=== PATIENT | female | born 1970 | race Caucasian/White ===

== ENCOUNTER 2023-10-23 11:23 | Observation (INO) | payer BC, OTHER, SELFPAY ==
--- OUTSIDE RECORDS SUMMARY | 2023-10-23 11:28 | XMS REPORT | Continuity of Care Document ---
Author Name Unknown Address [address] [facility] [address] [place] [address] [facility] Address [address] [facility] [address] [place] [address] Care Team Providers Care Egg Tester Name Role Phone Nicole Carter MD Primary Care Physician [phone] Nicole Carter Attending Clinician Unavailable KAUSHIK CHE Attending Clinician Unavailable ANTHONY BRAVO Attending Clinician UnavailNicole Ellis MD Attending Clinician + [phone] Anthony Bravo MD Attending Clinician [phone] Emanuel Gibson Attending Clinician Unavailable NICOLE CARTER Attending Clinician Ronit Bermudez , May Attending Clinician Unavailab GALINDO Richard Attending Clinician Unavail able GALINDO GAMEZ Attending Clinician Unavail Galindo Contreras MD Attending Clinician [phone] Edgardo Barr Attending Clinician [phone] Unknown, Attending Attending Clinician Unavailab EDGARDO Barrow Attending Clinician Unavailable ZENY DUMONT Attending Clinician Unavailable Zeny Dumont MD Attending Clinician [phone] WENDY SCHREIBER Attending Clinician Unavailable Wendy Schreiber MD Attending Clinician [phone] Ronn BARNES Lili Attending Clinician [phone] Doctor Unassigned, [place] Attending Clinician Rosa Rivas LVN Attending Clinician Ronit uribe Team, [facility] Maintenance Attending Clinicia n Unavailable Lab, [facility] Attending Clinician Unavailab le Provider, [facility] Attending Clinician Un available Isaac Talbot Attending Clinician [phone] ISAAC BANG Attending Clinician Unavailable CHRISTIAN SHEIKH Attending Clinician Unavail able Christian Sheikh DO Attending Clinician 2, [facility] Attending Clinician Unavailable DOC ANGELES M.D., Sophie BLOUNT Attendi ng Clinician Unavailable Nicole Carter Admitting Clinician Unavailable WENDY SCHREIBER Admitting Clinician Unavailable GALINDO GAMEZ Admitting Clinician Unavail able DOC ANGELES M.D., DOC Admitting Clin ician Unavailable Payers Payer Name Policy Type Policy Number Effective Date Expirati on Date Source [employer] OPEN ACCESS/OPEN ACCESS PLUS [id number] 2006 00:00:00 Problems Condition Name Condition Details Condition Category Status Onset Date Resolution Date Last Treatment Date Treating Clinician Comments Source Chronic head pain Chronic head pain Disease Active 10-24 00:00: 00 [facility] Anosmia Anosmia Disease Active 2020-02 00:00: 00 [facility] Chronic pansinusit is Chronic pansinusit is Disease Active 2020-02 00:00: 00 [facility] Nasal septal perforatio n Nasal septal perforatio n Disease Active 2020-02 00:00: 00 [facility] Type 2 diabetes mellitus without complicati on Type 2 diabetes mellitus without complicati on Disease Active 2014-02 00:00: 00 [facility] Essential hypertensi on Essential hypertensi on Disease Active 2014-02 00:00: 00 [facility] Obesity Obesity Disease Active 2014-02 00:00: 00 [facility] Depression Depression Disease Active 2014-02 00:00: 00 [facility] No known active problems No known active problems Disease [facility] Allergies, Adverse Reactions, Alerts Allergy Name Allergy Type Status Severity Reaction(s) Onset Date Inactive Date Treating Clinician Comments Source MAGO Kiran LIP BALM DRUG Active Rash 2020-02 00:00: 00 [facility] Chapstic miky Lip [place] Propensi ty to adverse reaction s Active Rash 2020-02 00:00: 00 [facility] Social History Social Habit Start Date Stop Date Quantity Comments [facility] History SDOH Alcohol Frequency [facility] History SDOH Alcohol Std Drinks [facility] History SDOH Alcohol Binge [facility] Alcoholic beverage intake 2023-08-20 00:00:00 2023-08-20 00:00:00 .14 /d [facility] Alcohol intake 2023-06-18 00:00:00 2023-06-18 00:00:00 .14 /d [facility] Tobacco use and exposure 2023-03-30 00:00:00 2023-03-30 00:00:00 Smokeless tobacco non-user [facility] History of Social function 2023-03-30 00:00:00 2023-03-30 00:00:00 [facility] Exposure to SARS-CoV-2 (event) 2022-06-22 00:00:00 2022-07-02 09:02:00 Not sure [facility] Alcohol Comment 2015-01-23 00:00:00 2015-01-23 00:00:00 occ [facility] Sex assigned at 1970 00:00:00 1970 00:00:00 [facility] Smoking Status Start Date Stop Date Source Never smoked tobacco [facility] Medications Ordered Medication Name Filled Medication Name Start Date Stop Date Current Medication? Ordering Clinician Indication Dosage Frequency Signature (SIG) Comments Components Source amphetamine -dextroamph etamine (ADDERALL XR) 20 mg 24 hr capsule 8- 00:00: 00 Yes [id number] 20mg Take 1 capsule by mouth every morning. [facility] lidocaine 1% (PF) (XYLOCAINE) injection 10 mL 08-18 20:30: 00 08-18 19:28 :00 No [id number] 10mL 10 mL, Subcutaneo us, ONCE, 1 dose, On Thu08/19/23 at 1530, Routine [facility] sodium bicarbonate 1 mEq/mL (8.4 %) injection 4 mL 08-18 20:30: 00 08-18 19:30 :00 No [id number] 4mL 4 mL, Infiltrati on, ONCE, 1 dose, On Thu08/19/23 at 1530, Routine [facility] bupivacaine (preserv free) (SENSORCAIN E MPF) 0.25 % (2.5 mg/mL) injection 4 mL 08-18 20:15: 00 08-18 19:31 :00 No [id number] 4mL 4 mL, Infiltrati on, ONCE, 1 dose, On Thu08/19/23 at 1515, Routine [facility] dexamethaso ne (DECADRON) injection 10 mg 08-18 20:15: 00 08-18 19:31 :00 No [id number] 10mg 10 mg, Infiltrati on, ONCE, 1 dose, On Thu08/19/23 at 1515, Routine [facility] amphetamine -dextroamph etamine (ADDERALL XR) 20 mg 24 hr capsule 08-17 00:00: 00 10-13 00:00 :00 No [id number] 20mg Take 1 capsule by mouth every morning. [facility] gabapentin 300 mg capsule 5-20 00:00: 00 Yes [id number] 300mg Take 1 capsule by mouth in the morning and 1 capsule in the evening. [facility] amphetamine -dextroamph etamine (ADDERALL XR) 20 mg 24 hr capsule 5-13 00:00: 00 08-17 00:00 :00 No [id number] 20mg Take 1 capsule by mouth every morning. [facility] semaglutide (OZEMPIC) 1 mg/dose (4 mg/3 mL) PnIj 06-17 00:00: 00 Yes [id number] 1mg inject 1 mg under the skin weekly. [facility] citalopram 40 mg tablet 06-17 00:00: 00 Yes [id number] 60mg Take 1.5 tablets by mouth in the morning. [facility] zolpidem 10 mg tablet 06-17 00:00: 00 Yes [id number] 10mg Take 1 tablet by mouth at bedtime as needed for Insomnia. [facility] amphetamine -dextroamph etamine (ADDERALL XR) 20 mg 24 hr capsule 06-07 00:00: 00 07-05 00:00 :00 No [id number] 20mg Take 1 capsule by mouth every morning. [facility] hydroCHLORO thiazide 25 mg tablet 05-24 00:00: 00 Yes [id number] 25mg TAKE 1 TABLET BY MOUTH EVERY DAY IN THE MORNING [facility] amphetamine -dextroamph etamine (ADDERALL XR) 20 mg 24 hr capsule 3- 00:00: 00 06-07 00:00 :00 No [id number] 20mg Take 1 capsule by mouth every morning. [facility] iopamidol (ISOVUE 370-500 mL) injection 90 mL 16 19:00: 00 04-10 19:12 :00 No [id number] 90mL 90 mL, Intravenou s, ONCE, 1 dose, On Thu04/10/23 at 1315, Routine [facility] semaglutide (OZEMPIC) 1 mg/dose (4 mg/3 mL) PnIj 2-14 00:00: 00 06-17 00:00 :00 No [id number] 1mg inject 1 mg under the skin weekly. [facility] molnupiravi r 200 mg capsule 2-07 00:00: 00 06-10 00:00 :00 No [id number] 800mg Take 4 capsules by mouth every 12 (twelve) hours. [facility] lisdexamfet amine (VYVANSE) 30 mg capsule 1- 00:00: 00 04-29 00:00 :00 No [id number] 30mg Take 1 capsule by mouth every morning. [facility] zolpidem 10 mg tablet 2022-02 1-20 00:00: 00 06-17 00:00 :00 No [id number] 10mg Take 1 tablet by mouth at bedtime as needed for Insomnia. [facility] lisdexamfet amine (VYVANSE) 30 mg capsule 2022-02 1- 00:00: 00 02-23 00:00 :00 No [id number] 30mg Take 1 capsule by mouth every morning. [facility] lisdexamfet amine (VYVANSE) 20 mg capsule 2022-02 0-17 00:00: 00 01-05 00:00 :00 No [id number] 20mg Take 1 capsule by mouth every morning. [facility] lisdexamfet amine (VYVANSE) 20 mg capsule 2022-02 0-10 00:00: 00 12-09 00:00 :00 No [id number] 20mg Take 1 capsule by mouth every morning. [facility] hydroCHLORO thiazide 25 mg tablet 11-20 00:00: 00 05-24 00:00 :00 No [id number] 25mg TAKE 1 TABLET BY MOUTH EVERY DAY IN THE MORNING [facility] semaglutide (OZEMPIC) 0.25 mg or 0.5 mg (2 mg/3 mL) PnIj - 00:00: 00 04-08 00:00 :00 No [id number] INJECT 0.5 MG UNDER THE SKIN WEEKLY [facility] Nitrofurant oin&Nit. Macrocryst 100 mg capsule 8-18 00:00: 00 10-16 04:59 :00 No [id number] 100mg Take 1 capsule by mouth in the morning and 1 capsule in the evening. Do all this for 5 days. [facility] phenazopyri dine 100 mg tablet 8-18 00:00: 00 10-13 04:59 :00 No [id number] 200mg Take 2 tablets by mouth in the morning and 2 tablets at noon and 2 tablets in the evening. Do all this for 2 days. [facility] hydroCHLORO thiazide 25 mg tablet 6-26 00:00: 00 11-20 00:00 :00 No [id number] 25mg Take 1 tablet by mouth in the morning. [facility] metformin ER 500 mg 24 hr tablet 12 08:23: 09 06-04 00:00 :00 No 500mg Take 500 mg by mouth 2 (two) times daily. [facility] buPROPion SR (WELLBUTRIN SR) 150 mg SR tablet 12 00:00: 00 Yes [id number] 150mg Take 1 tablet by mouth in the morning and 1 tablet in the evening. [facility] citalopram 40 mg tablet 12 00:00: 00 06-17 00:00 :00 No [id number] 60mg Take 1.5 tablets by mouth in the morning. [facility] zolpidem 10 mg tablet 12 00:00: 00 01-09 00:00 :00 No [id number] 10mg Take 1 tablet by mouth at bedtime as needed for Insomnia. [facility] semaglutide (OZEMPIC) 0.25 mg or 0.5 mg(2 mg/1.5 mL) PnIj 412 00:00: 00 11-20 00:00 :00 No [id number] .5mg inject 0.5 mg under the skin weekly. [facility] ZOLPIDEM 10 mg tablet 3-20 00:00: 00 06-04 00:00 :00 No [id number] TAKE 1 TABLET BY MOUTH EVERY DAY AT BEDTIME NEEDED FOR INSOMNIA [facility] citalopram 40 mg tablet 2-08 00:00: 00 06-04 00:00 :00 No [id number] 60mg Take 1.5 tablets by mouth in the morning. [facility] RIVASTIGMIN E 4.6 mg/24 hour patch 2021-02 2-20 00:00: 00 06-04 00:00 :00 No [id number] APPLY 1 PATCH TO SKIN EVERY DAY (CALL DR OFFICE FOR FURTHER REFILLS) [facility] zolpidem 10 mg tablet 9-20 00:00: 00 05-12 00:00 :00 No [id number] 10mg Take 1 tablet by mouth at bedtime as needed for Insomnia. [facility] semaglutide (OZEMPIC) 0.25 mg or 0.5 mg(2 mg/1.5 mL) PnIj - 00:00: 00 06-04 00:00 :00 No [id number] .5mg inject 0.5 mg under the skin weekly. .25 mg weekly for 4 weeks then .5 mg weekly [facility] cefUROXime 250 mg tablet - 00:00: 00 09-26 00:00 :00 No [id number] 250mg Take 1 tablet by mouth 2 (two) times daily. [facility] RIVASTIGMIN E 4.6 mg/24 hour patch 5-19 00:00: 00 02-11 00:00 :00 No [id number] APPLY 1 PATCH TO SKIN EVERY DAY (CALL DR OFFICE FOR FURTHER REFILLS) [facility] Ferrous Sulfate 134 mg (27 mg iron) Tab 5-11 15:03: 48 07-03 00:00 :00 No Take by mouth 3 (three) times daily. [facility] buPROPion SR (WELLBUTRIN SR) 150 mg SR tablet 3-25 00:00: 00 06-04 00:00 :00 No [id number] 150mg Take 1 tablet by mouth 2 (two) times daily. [facility] hydroCHLORO thiazide 25 mg tablet 0 3-15 00:00: 00 08-18 00:00 :00 No [id number] 25mg Take 1 tablet by mouth daily. [facility] telmisartan 80 mg tablet 3-15 00:00: 00 06-04 00:00 :00 No [id number] 80mg Take 1 tablet by mouth daily. [facility] citalopram 40 mg tablet 3-15 00:00: 00 04-02 00:00 :00 No [id number] 60mg Take 1.5 tablets by mouth daily. [facility] zolpidem 10 mg tablet 3-15 00:00: 00 11-11 00:00 :00 No [id number] 10mg Take 1 tablet by mouth at bedtime as needed for Insomnia. [facility] fluticasone (Flonase) 50 MCG/ACT nasal spray 03-15 00:00: 00 03-16 05:59 :00 No [id number] 1{spray } Q.5D Administer 1 spray into each nostril 2 (two) times a day. Shake gently. Before first use, prime pump. After use, clean tip and replace cap. [facility] telmisartan (MIcarDIS) 80 MG tablet 03-08 10:24: 29 Yes [facility] Ferrous Sulfate 134 MG tablet 03-08 10:24: 29 Yes Take by mouth. [facility] FOLIC ACID PO 03-08 10:24: 29 Yes Take by mouth. [facility] predniSONE (Deltasone) 10 MG tablet 03-08 00:00: 00 Yes 75 Take 3 tablets by mouth daily for 3 days then Take 2 tablets by mouth daily for 3 days then Take 1 tablets by mouth daily for 4 days [facility] fluticasone (Flonase) 50 MCG/ACT nasal spray 03-08 00:00: 00 03-09 05:59 :00 No [id number] 1{spray } Q.5D Administer 1 spray into each nostril 2 (two) times a day. Shake gently. Before first use, prime pump. After use, clean tip and replace cap. [facility] diclofenac (Voltaren) 50 MG EC tablet 2020-02 00:00: 00 02-15 05:59 :00 No [id number] 50mg [id number] 3D Take 1 tablet (50 mg total) by mouth 3 (three) times a day if needed (pain). Do not crush, chew, or split. [facility] promethazin e (Phenergan) 12.5 MG tablet 2020-02 00:00: 00 02-22 05:59 :00 No [id number] 12.5mg Q6H Take 1 tablet (12.5 mg total) by mouth every 6 (six) hours if needed for nausea or vomiting for up to 7 days. [facility] amoxicillin -clavulanat e (Augmentin) 500-125 MG tablet 2020-02 00:00: 00 02-22 05:59 :00 No [id number] 500mg Q12H Take 1 tablet (500 mg total) by mouth every 12 (twelve) hours for 7 days. [facility] HYDROcodone -acetaminop hen (Samburg) 7.5-325 MG tablet 2020-02 00:00: 00 02-20 05:59 :00 No [id number] 1{tbl} Q6H Take 1 tablet by mouth every 6 (six) hours if needed for severe pain for up to 5 days. [facility] FOLIC ACID PO 2020-02 15:00: 45 Yes Take by mouth. [facility] telmisartan (MIcarDIS) 80 MG tablet 2020-02 15:00: 16 Yes [facility] Ferrous Sulfate 134 MG tablet 2020-02 15:00: 16 Yes Take by mouth. [facility] citalopram (CeleXA) 40 MG tablet 2020-02 00:00: 00 Yes [facility] zolpidem (Ambien) 10 MG tablet 9- 00:00: 00 Yes 1{tbl} QD Take 1 tablet by mouth at night if needed. [facility] buPROPion SR (WELLBUTRIN SR) 150 mg SR tablet 2019-02 0-13 00:00: 00 05-17 00:00 :00 No [id number] 150mg Take 1 tablet by mouth 2 (two) times daily. [facility] metformin ER 500 mg 24 hr tablet 2018-02 13:31: 54 Yes 500mg Take 500 mg by mouth 2 (two) times daily. [facility] glimepiride 2 mg tablet 2018-02 00:00: 00 09-26 00:00 :00 No [id number] 2mg Take 1 tablet by mouth daily. [facility] telmisartan 80 mg tablet 2018-02 00:00: 00 05-07 00:00 :00 No [id number] 80mg Take 1 tablet by mouth daily. [facility] hydroCHLORO thiazide 25 mg tablet 2018-02 00:00: 00 05-07 00:00 :00 No [id number] 25mg Take 1 tablet by mouth daily. [facility] Immunizations Ordered Immunization Name Filled Immunization Name Date Status Comments Source SARS-COV-2 COVID-19 PFIZER VACCINE 2020-06-05 00:00:00 Completed [facility] SARS-COV-2 COVID-19 PFIZER VACCINE 2020-06-05 00:00:00 Completed [facility] SARS-COV-2 COVID-19 PFIZER VACCINE 2020-06-05 00:00:00 Completed [facility] SARS-COV-2 COVID-19 PFIZER VACCINE 2020-06-05 00:00:00 Completed [facility] SARS-COV-2 COVID-19 PFIZER VACCINE 2020-06-05 00:00:00 Completed [facility] SARS-COV-2 COVID-19 PFIZER VACCINE 2020-06-05 00:00:00 Completed [facility] SARS-COV-2 COVID-19 PFIZER VACCINE 2020-06-05 00:00:00 Completed [facility] SARS-COV-2 COVID-19 PFIZER VACCINE 2020-06-05 00:00:00 Completed [facility] SARS-COV-2 COVID-19 PFIZER VACCINE 2020-06-05 00:00:00 Completed [facility] SARS-COV-2 COVID-19 PFIZER VACCINE 2020-06-05 00:00:00 Completed [facility] SARS-COV-2 COVID-19 PFIZER VACCINE 2020-06-05 00:00:00 Completed [facility] SARS-COV-2 COVID-19 PFIZER VACCINE 2020-06-05 00:00:00 Completed [facility] SARS-COV-2 COVID-19 PFIZER VACCINE 2020-06-05 00:00:00 Completed [facility] SARS-COV-2 COVID-19 PFIZER VACCINE 2020-06-05 00:00:00 Completed [facility] SARS-COV-2 COVID-19 PFIZER VACCINE 2020-06-05 00:00:00 Completed [facility] SARS-COV-2 COVID-19 PFIZER VACCINE 2020-06-05 00:00:00 Completed [facility] SARS-COV-2 COVID-19 PFIZER VACCINE 2020-06-05 00:00:00 Completed [facility] SARS-COV-2 COVID-19 PFIZER VACCINE 2020-05-15 00:00:00 Completed [facility] SARS-COV-2 COVID-19 PFIZER VACCINE 2020-05-15 00:00:00 Completed [facility] SARS-COV-2 COVID-19 PFIZER VACCINE 2020-05-15 00:00:00 Completed [facility] SARS-COV-2 COVID-19 PFIZER VACCINE 2020-05-15 00:00:00 Completed [facility] SARS-COV-2 COVID-19 PFIZER VACCINE 2020-05-15 00:00:00 Completed [facility] SARS-COV-2 COVID-19 PFIZER VACCINE 2020-05-15 00:00:00 Completed [facility] SARS-COV-2 COVID-19 PFIZER VACCINE 2020-05-15 00:00:00 Completed [facility] SARS-COV-2 COVID-19 PFIZER VACCINE 2020-05-15 00:00:00 Completed [facility] SARS-COV-2 COVID-19 PFIZER VACCINE 2020-05-15 00:00:00 Completed [facility] SARS-COV-2 COVID-19 PFIZER VACCINE 2020-05-15 00:00:00 Completed [facility] SARS-COV-2 COVID-19 PFIZER VACCINE 2020-05-15 00:00:00 Completed [facility] SARS-COV-2 COVID-19 PFIZER VACCINE 2020-05-15 00:00:00 Completed [facility] SARS-COV-2 COVID-19 PFIZER VACCINE 2020-05-15 00:00:00 Completed [facility] SARS-COV-2 COVID-19 PFIZER VACCINE 2020-05-15 00:00:00 Completed [facility] SARS-COV-2 COVID-19 PFIZER VACCINE 2020-05-15 00:00:00 Completed [facility] SARS-COV-2 COVID-19 PFIZER VACCINE 2020-05-15 00:00:00 Completed [facility] SARS-COV-2 COVID-19 PFIZER VACCINE 2020-05-15 00:00:00 Completed [facility] SARS-COV-2 COVID-19 PFIZER VACCINE Unknown Completed [facility] SARS-COV-2 COVID-19 PFIZER VACCINE Unknown Completed [facility] SARS-COV-2 COVID-19 PFIZER VACCINE Unknown Completed [facility] SARS-COV-2 COVID-19 PFIZER VACCINE Unknown Completed [facility] SARS-COV-2 COVID-19 PFIZER VACCINE Unknown Completed [facility] SARS-COV-2 COVID-19 PFIZER VACCINE Unknown Completed [facility] SARS-COV-2 COVID-19 PFIZER VACCINE Unknown Completed [facility] SARS-COV-2 COVID-19 PFIZER VACCINE Unknown Completed [facility] SARS-COV-2 COVID-19 PFIZER VACCINE Unknown Completed [facility] SARS-COV-2 COVID-19 PFIZER VACCINE Unknown Completed [facility] SARS-COV-2 COVID-19 PFIZER VACCINE Unknown Completed [facility] SARS-COV-2 COVID-19 PFIZER VACCINE Unknown Completed [facility] SARS-COV-2 COVID-19 PFIZER VACCINE Unknown Completed [facility] SARS-COV-2 COVID-19 PFIZER VACCINE Unknown Completed [facility] SARS-COV-2 COVID-19 PFIZER VACCINE Unknown Completed [facility] SARS-COV-2 COVID-19 PFIZER VACCINE Unknown Completed [facility] SARS-COV-2 COVID-19 PFIZER VACCINE Unknown Completed [facility] SARS-COV-2 COVID-19 PFIZER VACCINE Unknown Completed [facility] SARS-COV-2 COVID-19 PFIZER VACCINE Unknown Completed [facility] SARS-COV-2 COVID-19 PFIZER VACCINE Unknown Completed [facility] SARS-COV-2 COVID-19 PFIZER VACCINE Unknown Completed [facility] SARS-COV-2 COVID-19 PFIZER VACCINE Unknown Completed [facility] SARS-COV-2 COVID-19 PFIZER VACCINE Unknown Completed [facility] SARS-COV-2 COVID-19 PFIZER VACCINE Unknown Completed [facility] SARS-COV-2 COVID-19 PFIZER VACCINE Unknown Completed [facility] SARS-COV-2 COVID-19 PFIZER VACCINE Unknown Completed [facility] SARS-COV-2 COVID-19 PFIZER VACCINE Unknown Completed [facility] SARS-COV-2 COVID-19 PFIZER VACCINE Unknown Completed [facility] SARS-COV-2 COVID-19 PFIZER VACCINE Unknown Completed [facility] SARS-COV-2 COVID-19 PFIZER VACCINE Unknown Completed [facility] SARS-COV-2 COVID-19 PFIZER VACCINE Unknown Completed [facility] SARS-COV-2 COVID-19 PFIZER VACCINE Unknown Completed [facility] SARS-COV-2 COVID-19 PFIZER VACCINE Unknown Completed [facility] SARS-COV-2 COVID-19 PFIZER VACCINE Unknown Completed [facility] SARS-COV-2 COVID-19 PFIZER VACCINE Unknown Completed [facility] SARS-COV-2 COVID-19 PFIZER VACCINE Unknown Completed [facility] SARS-COV-2 COVID-19 PFIZER VACCINE Unknown Completed [facility] SARS-COV-2 COVID-19 PFIZER VACCINE Unknown Completed [facility] SARS-COV-2 COVID-19 PFIZER VACCINE Unknown Completed [facility] SARS-COV-2 COVID-19 PFIZER VACCINE Unknown Completed [facility] SARS-COV-2 COVID-19 PFIZER VACCINE Unknown Completed [facility] SARS-COV-2 COVID-19 PFIZER VACCINE Unknown Completed [facility] SARS-COV-2 COVID-19 PFIZER VACCINE Unknown Completed [facility] SARS-COV-2 COVID-19 PFIZER VACCINE Unknown Completed [facility] SARS-COV-2 COVID-19 PFIZER VACCINE Unknown Completed [facility] SARS-COV-2 COVID-19 PFIZER VACCINE Unknown Completed [facility] SARS-COV-2 COVID-19 PFIZER VACCINE Unknown Completed [facility] SARS-COV-2 COVID-19 PFIZER VACCINE Unknown Completed [facility] SARS-COV-2 COVID-19 PFIZER VACCINE Unknown Completed [facility] SARS-COV-2 COVID-19 PFIZER VACCINE Unknown Completed [facility] SARS-COV-2 COVID-19 PFIZER VACCINE Unknown Completed [facility] SARS-COV-2 COVID-19 PFIZER VACCINE Unknown Completed [facility] SARS-COV-2 COVID-19 PFIZER VACCINE Unknown Completed [facility] SARS-COV-2 COVID-19 PFIZER VACCINE Unknown Completed [facility] SARS-COV-2 COVID-19 PFIZER VACCINE Unknown Completed [facility] SARS-COV-2 COVID-19 PFIZER VACCINE Unknown Completed [facility] SARS-COV-2 COVID-19 PFIZER VACCINE Unknown Completed [facility] SARS-COV-2 COVID-19 PFIZER VACCINE Unknown [facility] [place] SARS-COV-2 COVID-19 PFIZER VACCINE Unknown Completed [facility] SARS-COV-2 COVID-19 PFIZER VACCINE Unknown Completed [facility] SARS-COV-2 COVID-19 PFIZER VACCINE Unknown Completed [facility] SARS-COV-2 COVID-19 PFIZER VACCINE Unknown Completed [facility] SARS-COV-2 COVID-19 PFIZER VACCINE Unknown Completed [facility] SARS-COV-2 COVID-19 PFIZER VACCINE Unknown Completed [facility] SARS-COV-2 COVID-19 PFIZER VACCINE Unknown Completed [facility] SARS-COV-2 COVID-19 PFIZER VACCINE Unknown Completed [facility] SARS-COV-2 COVID-19 PFIZER VACCINE Unknown Completed [facility] SARS-COV-2 COVID-19 PFIZER VACCINE Unknown Completed [facility] SARS-COV-2 COVID-19 PFIZER VACCINE Unknown Completed [facility] SARS-COV-2 COVID-19 PFIZER VACCINE Unknown Completed [facility] SARS-COV-2 COVID-19 PFIZER VACCINE Unknown Completed [facility] SARS-COV-2 COVID-19 PFIZER VACCINE Unknown Completed [facility] SARS-COV-2 COVID-19 PFIZER VACCINE Unknown Completed [facility] SARS-COV-2 COVID-19 PFIZER VACCINE Unknown Completed [facility] SARS-COV-2 COVID-19 PFIZER VACCINE Unknown Completed [facility] SARS-COV-2 COVID-19 PFIZER VACCINE Unknown Completed [facility] SARS-COV-2 COVID-19 PFIZER VACCINE Unknown Completed [facility] SARS-COV-2 COVID-19 PFIZER VACCINE Unknown Completed [facility] SARS-COV-2 COVID-19 PFIZER VACCINE Unknown Completed [facility] SARS-COV-2 COVID-19 PFIZER VACCINE Unknown Completed [facility] SARS-COV-2 COVID-19 PFIZER VACCINE Unknown Completed [facility] SARS-COV-2 COVID-19 PFIZER VACCINE Unknown Completed [facility] Vital Signs Vital Name Observation Time Observation Value Comments S ource Systolic blood pressure 2023-08-19 19:09:00 144 mm[Hg] [facility] Diastolic blood pressure 2023-08-19 19:09:00 80 mm[Hg] [facility] Heart rate 2023-08-19 19:09:00 80 /min [facility] Body temperature 2023-08-19 19:09:00 36.72 Kya [facility] Respiratory rate 2023-08-19 19:09:00 18 /min [facility] Body height 2023-08-19 19:09:00 160 cm [facility] Body weight 2023-08-19 19:09:00 71.668 kg [facility] BMI 2023-08-19 19:09:00 27.99 kg/m2 [facility] Oxygen saturation in Arterial blood by Pulse oximetry 2023-08-19 19:09:00 99 /min [facility] Systolic blood pressure 2023-07-13 19:24:00 138 mm[Hg] [facility] Diastolic blood pressure 2023-07-13 19:24:00 79 mm[Hg] [facility] Heart rate 2023-07-13 19:22:00 73 /min [facility] Body height 2023-07-13 19:22:00 160 cm [facility] Body weight 2023-07-13 19:22:00 76.567 kg [facility] BMI 2023-07-13 19:22:00 29.90 kg/m2 [facility] Oxygen saturation in Arterial blood by Pulse oximetry 2023-07-13 19:22:00 96 /min [facility] Systolic blood pressure 2023-06-18 15:20:00 127 mm[Hg] [facility] Diastolic blood pressure 2023-06-18 15:20:00 80 mm[Hg] [facility] Heart rate 2023-06-18 15:20:00 73 /min [facility] Body temperature 2023-06-18 15:20:00 36.78 Kya [facility] Body height 2023-06-18 15:20:00 160 cm [facility] Body weight 2023-06-18 15:20:00 77.111 kg [facility] BMI 2023-06-18 15:20:00 30.11 kg/m2 [facility] Systolic blood pressure 2023-05-29 20:18:00 147 mm[Hg] Pt in severe pain, no symptoms [facility] Diastolic blood pressure 2023-05-29 20:18:00 77 mm[Hg] Pt in severe pain, no symptoms [facility] Heart rate 2023-05-29 20:18:00 99 /min [facility] Respiratory rate 2023-05-29 20:18:00 12 /min [facility] Body height 2023-05-29 20:18:00 160 cm [facility] Body weight 2023-05-29 20:18:00 78.472 kg [facility] BMI 2023-05-29 20:18:00 30.65 kg/m2 [facility] Oxygen saturation in Arterial blood by Pulse oximetry 2023-05-29 20:18:00 98 /min [facility] Systolic blood pressure 2023-04-27 18:35:00 128 mm[Hg] [facility] Diastolic blood pressure 2023-04-27 18:35:00 78 mm[Hg] [facility] Heart rate 2023-04-27 18:35:00 63 /min [facility] Body height 2023-04-27 18:35:00 160 cm [facility] Body weight 2023-04-27 18:35:00 81.33 kg [facility] BMI 2023-04-27 18:35:00 31.76 kg/m2 [facility] Oxygen saturation in Arterial blood by Pulse oximetry 2023-04-27 18:35:00 97 /min [facility] Systolic blood pressure 2023-04-01 17:36:00 111 mm[Hg] [facility] Diastolic blood pressure 2023-04-01 17:36:00 73 mm[Hg] [facility] Heart rate 2023-04-01 17:36:00 93 /min [facility] Body temperature 2023-04-01 17:36:00 37.17 Kya [facility] Respiratory rate 2023-04-01 17:36:00 20 /min [facility] Body height 2023-04-01 17:36:00 160 cm [facility] Body weight 2023-04-01 17:36:00 78.971 kg [facility] BMI 2023-04-01 17:36:00 30.84 kg/m2 [facility] Oxygen saturation in Arterial blood by Pulse oximetry 2023-04-01 17:36:00 99 /min [facility] Systolic blood pressure 2023-03-30 18:49:00 151 mm[Hg] [facility] Diastolic blood pressure 2023-03-30 18:49:00 90 mm[Hg] [facility] Heart rate 2023-03-30 18:41:00 101 /min [facility] Respiratory rate 2023-03-30 18:41:00 18 /min [facility] Body height 2023-03-30 18:41:00 160 cm [facility] Body weight 2023-03-30 18:41:00 82.101 kg [facility] BMI 2023-03-30 18:41:00 32.06 kg/m2 [facility] Oxygen saturation in Arterial blood by Pulse oximetry 2023-03-30 18:41:00 97 /min [facility] Systolic blood pressure 2023-01-05 20:51:00 124 mm[Hg] [facility] Diastolic blood pressure 2023-01-05 20:51:00 63 mm[Hg] [facility] Heart rate 2023-01-05 20:51:00 62 /min [facility] Body height 2023-01-05 20:51:00 160 cm [facility] Body weight 2023-01-05 20:51:00 79.833 kg [facility] BMI 2023-01-05 20:51:00 31.18 kg/m2 [facility] Systolic blood pressure 2022-12-02 20:34:00 163 mm[Hg] [facility] Diastolic blood pressure 2022-12-02 20:34:00 86 mm[Hg] [facility] Heart rate 2022-12-02 20:33:00 59 /min [facility] Body height 2022-12-02 20:33:00 160 cm [facility] Body weight 2022-12-02 20:33:00 79.379 kg [facility] BMI 2022-12-02 20:33:00 31.00 kg/m2 [facility] Systolic blood pressure 2022-10-10 23:29:00 124 mm[Hg] [facility] Diastolic blood pressure 2022-10-10 23:29:00 83 mm[Hg] [facility] Heart rate 2022-10-10 23:29:00 75 /min [facility] Body temperature 2022-10-10 23:29:00 36.22 Kya [facility] Respiratory rate 2022-10-10 23:29:00 17 /min [facility] Body weight 2022-10-10 23:29:00 76.885 kg [facility] BMI 2022-10-10 23:29:00 30.03 kg/m2 [facility] Systolic blood pressure 2022-07-02 14:56:00 170 mm[Hg] [facility] Diastolic blood pressure 2022-07-02 14:56:00 95 mm[Hg] [facility] Heart rate 2022-07-02 14:05:00 77 /min [facility] Body temperature 2022-07-02 14:05:00 36.78 Kya [facility] Respiratory rate 2022-07-02 14:05:00 17 /min [facility] Body height 2022-07-02 14:05:00 160 cm [facility] Body weight 2022-07-02 14:05:00 80.287 kg [facility] BMI 2022-07-02 14:05:00 31.35 kg/m2 [facility] Systolic blood pressure 2022-06-04 13:22:00 154 mm[Hg] [facility] Diastolic blood pressure 2022-06-04 13:22:00 82 mm[Hg] [facility] Heart rate 2022-06-04 13:21:00 58 /min [facility] Body height 2022-06-04 13:21:00 160 cm [facility] Body weight 2022-06-04 13:21:00 80.287 kg [facility] BMI 2022-06-04 13:21:00 31.35 kg/m2 [facility] Systolic blood pressure 2021-12-24 20:38:00 128 mm[Hg] [facility] Diastolic blood pressure 2021-12-24 20:38:00 82 mm[Hg] [facility] Heart rate 2021-12-24 20:38:00 78 /min [facility] Body height 2021-12-24 20:38:00 160 cm [facility] Body weight 2021-12-24 20:38:00 79.379 kg [facility] BMI 2021-12-24 20:38:00 31.00 kg/m2 [facility] Oxygen saturation in Arterial blood by Pulse oximetry 2021-12-24 20:38:00 98 /min [facility] Systolic blood pressure 2021-09-26 14:38:00 138 mm[Hg] [facility] Diastolic blood pressure 2021-09-26 14:38:00 83 mm[Hg] [facility] Heart rate 2021-09-26 14:38:00 67 /min [facility] Body height 2021-09-26 14:38:00 160 cm [facility] Body weight 2021-09-26 14:38:00 82.555 kg [facility] BMI 2021-09-26 14:38:00 32.24 kg/m2 [facility] Body weight 2021-05-21 15:37:00 81.647 kg [facility] BMI 2021-05-21 15:37:00 31.89 kg/m2 [facility] Body height 2021-05-21 15:37:00 160 cm [facility] Body height 2021-03-08 16:24:00 160 cm [facility] Body weight 2021-03-08 16:24:00 81.647 kg [facility] BMI 2021-03-08 16:24:00 31.89 kg/m2 [facility] Body height 2021-02-18 15:56:00 160 cm [facility] Body weight 2021-02-18 15:56:00 79.379 kg [facility] BMI 2021-02-18 15:56:00 31.00 kg/m2 [facility] Procedures Procedure Date / Time Performed Performing Clinicia n Source POCT GLUCOSE (AUTOMATED) 2023-08-19 19:04:00 Anthony Bravo [facility] CT ANGIOGRAM NECK 2023-04-10 19:13:50 Galindo Gamez [facility] CT ANGIOGRAM HEAD 2023-04-10 19:11:52 Galindo Gamez [facility] POCT SARS-COV-2 ANTIGEN (BINAX NOW) 2023-04-01 18:01:00 Edgardo Davis [facility] POCT MOLECULAR FLU 2023-04-01 17:52:00 Unknown, Attend [facility] CT SINUS WO CONTRAST 2021-02-05 20:59:14 [facility] SINUS WO CONTRAST 2021-02-05 20:59:14 [facility] Encounters Start Date/Time End Date/Time Encounter Type Admission Type Attending [facility] Care Facility Care Department Encounter ID Source 2023-07-14 15:54:01 Outpatient Nicole Carter [facility] [id number] [facility] 2021-03-08 11:02:51 Outpatient CHINEDU KAUSHIK [facility] [id number] [facility] 2021-02-04 09:52:32 Outpatient CHINEDU KAUSHIK [facility] [id number] [facility] 2021-01-23 10:46:57 Outpatient CHINEDU KAUSHIK [facility] [id number] [facility] 2023-10-14 00:00:00 2023-10-14 10:10:31 Nicole Sanchez [facility] 1.2.840.114 350.1.13.10 4.2.7.2.686 [id number] [facility] 2023-08-26 00:00:00 2023-09-26 18:18:44 Patient Secure Msg Carter [facility] 1..840.114 350.1.13.10 4.2.7.2.686 [id number] [facility] 2023-08-20 00:00:00 2023-08-20 08:36:28 Telephone Anthony Bravoeel [facility] 1.840.114 350.1.13.10 4.2.7.2.686 [id number] [facility] 2023-08-19 15:00:00 2023-08-19 15:30:00 Office Visit Anthony Bravo [facility] 1.840.114 350.1.13.10 4.2.7.2.686 [id number] [facility] 2023-08-19 15:00:00 2023-08-19 15:00:00 Outpatient R ANTHONY BRAVO [facility] [id number] [facility] 2023-08-18 00:00:00 2023-08-18 11:40:04 Seth Carter [facility] 1..840.114 350.1.13.10 4.2.7.2.686 [id number] [facility] 2023-08-14 13:30:00 2023-08-14 13:30:00 Outpatient R ANTHONY BRA[facility] [id number] [facility] 2023-08-13 00:00:00 2023-08-13 14:26:26 [facility] 1..114 350.1.13.10 4.2.7.2.686 [id number] [facility] 2023-07-28 00:00:00 2023-07-28 08:50:42 Telephone Arcadiobhavana Nicole [facility] 1.0.114 350.1.13.10 4.2.7.2.686 [id number] [facility] 2023-07-13 14:15:00 2023-07-13 15:02:25 Outpatient R ANTHONY BRA[facility] [id number] [facility] 2023-07-13 14:15:00 2023-07-13 15:02:25 [facility] 1.114 350.1.13.10 4.2.7.2.686 [id number] [facility] 2023-07-06 00:00:00 2023-07-06 15:35:26 Refill Hailey [facility] 1.114 350.1.13.10 4.2.7.2.686 [id number] [facility] 2023-06-23 00:00:00 2023-06-23 00:00:00 [facility] 1..114 350.1.13.10 4.2.7.2.686 [id number] [facility] 2023-06-18 11:00:00 2023-06-18 11:15:00 Process Assistant Visit Lab, Emanuel Carter [facility] 1..114 350.1.13.10 4.2.7.2.686 [id number] [facility] 2023-06-18 10:30:00 2023-06-18 11:00:00 [facility] 1.2840.114 350.1.13.10 4.2.7.2.686 [id number] [facility] 2023-06-18 10:30:00 2023-06-18 10:32:13 Outpatient R NICOLE [facility]TER [facility] [id number] [facility] 2023-06-11 00:00:00 2023-06-11 00:00:00 Pre Visit Outreach Kaylynn Bermudez 1.840.114 350.1.13.10 4.2.7.2.686 [id number] [facility] 2023-06-08 00:00:00 2023-06-08 00:00:00 Refill Hailey [facility] 1.840.114 350.1.13.10 4.2.7.2.686 [id number] [facility] 2023-05-29 15:30:00 2023-05-29 16:01:10 Office Visit Anthony Bravo [facility] 1.840.114 350.1.13.10 4.2.7.2.686 [id number] [facility] 2023-05-29 15:30:00 2023-05-29 16:01:10 Outpatient R ANTHONY BRA[facility] [id number] [facility] 2023-05-24 00:00:00 2023-05-24 00:00:00 Refill Mikalaluli [facility] 1..840.114 350.1.13.10 4.2.7.2.686 [id number] [facility] 2023-05-21 13:45:00 2023-05-21 13:45:[address] [facility] [id number] [facility] 2023-05-11 14:30:00 2023-05-11 14:30:00 Outpatient R ANTHONY BRA[facility] [id number] [facility] 2023-04-29 00:00:00 2023-04-29 00:00:00 Patient Secure Msg Carter Nicole Jett [facility] 1..840.114 350.1.13.10 4.2.7.2.686 [id number] [facility] 2023-04-27 12:40:00 2023-04-27 13:14:20 Outpatient GALINDO LARSON [facility] [id number] [facility] 2023-04-27 12:40:00 2023-04-27 13:14:20 Office Visit Galindo Gamez [facility] 1..840.114 350.1.13.10 4.2.7.2.686 [id number] [facility] 2023-04-27 00:00:00 2023-04-27 00:00:00 RefEdgardo Sauceda [facility] 1..840.114 350.1.13.10 4.2.7.2.686 [id number] [facility] 2023-04-10 12:32:08 2023-04-10 23:59:00 Hospital Encounter Galindo Gamez [facility] 1..840.114 350.1.13.10 4.2.7.2.686 [id number] [facility] 2023-04-10 12:31:39 2023-04-10 12:31:39 Outpatient R GALINDO GAMEZ [facility] [id number] [facility] 2023-04-10 12:31:39 2023-04-10 12:31:39 Hospital Encounter Vera Galindo Cui [facility] 1.84.114 350.1.13.10 4.2.7.2.686 [id number] [facility] 2023-04-08 00:00:00 2023-04-08 00:00:00 Nicole Sanchez [facility] 1.840.114 350.1.13.10 4.2.7.2.686 [id number] [facility] 2023-04-01 11:20:00 2023-04-01 11:40:00 Urgent Care Edgardo Davis Unknown, Attending [facility] 1.84.114 350.1.13.10 4.2.7.2.686 [id number] [facility] 2023-04-01 11:20:00 2023-04-01 11:20:00 Outpatient R EDGARDO DAVIS [facility] [id number] [facility] 2023-03-30 12:40:00 2023-03-30 13:45:19 Outpatient R GALINDO GAMEZ [facility] [id number] [facility] 2023-03-30 12:40:00 2023-03-30 13:45:19 Office Visit Galindo Gamez [facility] 1.84.114 350.1.13.10 4.2.7.2.686 [id number] [facility] 2023-02-23 00:00:00 2023-02-23 00:00:00 Refill Nicole Carter [facility] 1.840.114 350.1.13.10 4.2.7.2.686 [id number] [facility] 2023-01-09 00:00:00 2023-01-09 00:00:00 [facility] 1.840.114 350.1.13.10 4.2.7.2.686 [id number] [facility] 2023-01-05 15:00:00 2023-01-05 15:00:00 Office Visit Nicole Carter [facility] 1.840.114 350.1.13.10 4.2.7.2.686 [id number] [facility] 2023-01-05 15:00:00 2023-01-05 14:57:[address] [facility] [id number] [facility] 2022-12-19 09:20:00 2022-12-19 09:20:00 Outpatient GALINDO LARSON [facility] [id number] [facility] 2022-12-08 00:00:00 2022-12-08 00:00:00 Patient Secure Msg Nicole Carter [facility] 1.840.114 350.1.13.10 4.2.7.2.686 [id number] [facility] 2022-12-02 15:45:00 2022-12-02 16:00:00 Office Visit Nicole Carter [facility] 1.840.114 350.1.13.10 4.2.7.2.686 [id number] [facility] 2022-12-02 15:45:00 2022-12-02 15:45:00 Outpatient R NICOLE [facility]TER [facility] [id number] [facility] 2022-11-26 00:00:00 2022-11-26 00:00:00 Telephone Galindo [facility]z [facility] 1..840.114 350.1.13.10 4.2.7.2.686 [id number] [facility] 2022-11-19 00:00:00 2022-11-19 00:00:00 Refill Nicole Carter [facility] 1.840.114 350.1.13.10 4.2.7.2.686 [id number] [facility] 2022-10-10 18:40:00 2022-10-10 19:00:22 Outpatient R ZENY DUM[address] [facility] [id number] [facility] 2022-10-10 18:40:00 2022-10-10 19:00:00 Urgent Care Zeny Dumont Unknown, Attending [facility] 1.840.114 350.1.13.10 4.2.7.2.686 [id number] [facility] 2022-10-09 00:00:00 2022-10-09 00:00:00 Patient Secure [facility]claudine [facility]Nicole [facility] 1..840.114 350.1.13.10 4.2.7.2.686 [id number] [facility] 2022-09-11 14:20:49 2022-09-11 23:59:00 Outpatient R WENDY SCH[facility]IB[facility] [id number] [facility] 2022-09-11 14:20:49 2022-09-11 23:59:00 Hospital Encounter AdWendy dobbins [facility] 1.84.114 350.1.13.10 4.2.7.2.686 [id number] [facility] 2022-08-18 00:00:00 2022-08-18 00:00:00 Refill Nicole Carter [facility] 1.840.114 350.1.13.10 4.2.7.2.686 [id number] [facility] 2022-07-02 09:30:00 2022-07-02 09:57:10 Outpatient R JESSICA WENDY [facility] [id number] [facility] 2022-07-02 09:30:00 2022-07-02 09:57:10 Office Visit Wendy Schreiber [facility] 1.840.114 350.1.13.10 4.2.7.2.686 [id number] [facility] 2022-06-04 09:00:00 2022-06-04 09:16:22 Process Assistant Visit Lab, Emanuel Carter [facility] 1..840.114 350.1.13.10 4.2.7.2.686 [id number] [facility] 2022-06-04 08:30:00 2022-06-04 08:32:27 Outpatient R NICOLE [facility]TER [facility] [id number] [facility] 2022-06-04 08:30:00 2022-06-04 08:32:27 Office Visit Nicole Carter [facility] 1..840.114 350.1.13.10 4.2.7.2.686 [id number] [facility] 2022-05-12 00:00:00 2022-05-12 00:00:00 Nicole Sanchez [facility] 1.2.840.114 350.1.13.10 4.2.7.2.686 [id number] [facility] 2022-04-02 00:00:00 2022-04-02 00:00:00 Nicole Sanchez [facility] 1.2.840.114 350.1.13.10 4.2.7.2.686 [id number] [facility] 2022-02-09 00:00:00 2022-02-09 00:00:00 Galindo Buck [facility] EZEKIEL?[facility] BUILDING 1.2.840.114 350.1.13.10 4.2.7.2.686 [id number] [facility] 2021-12-24 15:40:00 2021-12-24 16:18:05 Outpatient GALINDO LARSON [facility] [id number] [facility] 2021-12-24 15:40:00 2021-12-24 16:18:05 Office Visit Lili Brody [facility] EZEKIEL?[facility] OFF[facility] BUILDING 1.2.840.114 350.1.13.10 4.2.7.2.686 [id number] [facility] 2021-12-24 15:40:00 2021-12-24 15:40:00 Outpatient GALINDO LARSON [facility] [id number] [facility] 2021-12-18 16:30:00 2021-12-18 16:30:00 Outpatient R NICOLE [facility] [id number] [facility] 2021-11-11 00:00:00 2021-11-11 00:00:00 Nicole Sanchez [facility] EZEKIEL?[facility] BU[facility] 1.2.840.114 350.1.13.10 4.2.7.2.686 [id number] [id number] [facility] 2021-09-26 09:45:00 2021-09-26 09:48:05 Outpatient R [address] [facility] [id number] [facility] 2021-09-26 09:45:00 2021-09-26 09:48:05 Office Visit Nicole Carter [facility] EZEKIEL?[facility] MEDICAL OFFICE BUILDING 1.840.114 350.1.13.10 4.2.7.2.686 [id number] [id number] [facility] 2021-09-20 00:00:00 2021-09-20 00:00:00 Nicole Sanchez [facility] BU[facility] 1.2840.114 350.1.13.10 4.2.7.2.686 [id number] 044 [id number] [facility] 2021-08-28 00:00:00 2021-08-28 00:00:00 Patient Secure Msg Hailey [facility] OFF[facility] BUILDING 1.2840.114 350.1.13.10 4.2.7.2.686 [id number] [id number] [facility] 2021-08-21 00:00:00 2021-08-21 00:00:00 Orders Only Doctor Unassigned, [place] [facility] 1.2840.114 350.1.13.10 4.2.7.2.686 [id number] [facility] 2021-07-23 00:00:00 2021-07-23 00:00:00 Galindo Buck [facility] EZEKIEL?[facility] MEDICAL OFFICE BUILDING 1..840.114 350.1.13.10 4.2.7.2.686 [id number] [id number] [facility] 2021-07-11 00:00:00 2021-07-11 00:00:00 Galindo Buck [facility] EZEKIEL?[facility] MEDICAL OFFICE BUILDING 1..840.114 350.1.13.10 4.2.7.2.686 [id number] [id number] [facility] 2021-07-03 15:00:00 2021-07-03 15:15:00 Office Visit Hailey Nicole [facility] EZEKIEL?[facility] MEDICAL OFFICE BUILDING 1..840.114 350.1.13.10 4.2.7.2.686 [id number] 044 [id number] [facility] 2021-07-03 15:00:00 2021-07-03 15:00:00 Outpatient R NICOLE [facility] [id number] [facility] 2021-07-02 00:00:00 2021-07-02 00:00:00 Patient Secure g Nicole Carter [facility] EZEKIEL?[facility] MEDICAL OFFICE BUILDING 1..840.114 350.1.13.10 4.2.7.2.686 [id number] [id number] [facility] 2021-07-02 00:00:00 2021-07-02 00:00:00 Patient Secure g Rosa Goodson [facility] EZEKIEL?[facility] MEDICAL OFFICE BUILDING 1..840.114 350.1.13.10 4.2.7.2.686 [id number] [id number] [facility] 2021-06-18 15:40:00 2021-06-18 16:30:08 Outpatient GALINDO LARSON [facility] [id number] [facility] 2021-06-18 15:40:00 2021-06-18 16:30:08 Office [facility] 1.2.840.114 350.1.13.10 4.2.7.2.686 [id number] [facility] 2021-06-18 15:40:00 2021-06-18 16:30:08 Outpatient GALINDO LARSON [facility] [id number] [facility] 2021-06-03 00:00:00 2021-06-03 00:00:00 Telephone Galindo [facility] BUILD[facility] 1..840.114 350.1.13.10 4.2.7.2.686 [id number] [id number] [facility] 2021-06-03 00:00:00 2021-06-03 00:00:00 Telephone Galindo Gamez [facility] 1..840.114 350.1.13.10 4.2.7.2.686 [id number] [facility] 2021-05-31 08:48:09 2021-05-31 23:59:00 Outpatient GALINDO LARSON [facility] [id number] [facility] 2021-05-31 08:48:09 2021-05-31 23:59:00 Hospital Encounter Galindo Gamez [facility] 1..840.114 350.1.13.10 4.2.7.2.686 [id number] [facility] 2021-05-31 00:00:00 2021-05-31 00:00:00 Orders Only Doctor Unassigned, [place] [facility] 1.114 350.1.13.10 4.2.7.2.686 [id number] [id number] [facility] 2021-05-21 10:30:00 2021-05-21 11:03:18 Office Visit Kaushik Che [address] 1.84.114 350.1.13.58 9.2.7.2.686 [id number] 3 [id number] [facility] 2021-05-20 15:40:00 2021-05-20 16:20:00 Office Visit Galindo Gamez [facility] 1.114 350.1.13.10 4.2.7.2.686 [id number] 092 [id number] [facility] 2021-05-20 15:40:00 2021-05-20 15:40:00 Outpatient GALINDO LARSON [facility] [id number] [facility] 2021-05-20 15:40:00 2021-05-20 15:40:00 Outpatient GALINDO LARSON [facility] [id number] [facility] 2021-05-17 00:00:00 2021-05-17 00:00:00 Patient Secure Msg Nicole Carter [facility] MEDICAL OFFICE BUILDING 1.84.114 350.1.13.10 4.2.7.2.686 [id number] [id number] [facility] 2021-05-07 08:30:00 2021-05-07 08:50:[address] [facility] [id number] [facility] 2021-04-11 00:00:00 2021-04-11 00:00:00 Patient Secure Msg Doctor Unassigned, [place] [facility] 1.84.114 350.1.13.10 4.2.7.2.686 [id number] [facility] 2021-04-08 00:00:00 2021-04-08 00:00:00 Telephone Team, [facility] Maintenance [facility] 1.2.840.114 350.1.13.10 4.2.7.2.686 [id number] [facility] 2021-04-05 00:00:00 2021-04-05 00:00:00 Orders Only Doctor Unassigned, [place] [facility] 1.2.840.114 350.1.13.10 4.2.7.2.686 [id number] [id number] [facility] 2021-03-10 00:00:00 2021-03-10 00:00:00 Sanamill Nicole Carter [facility] OFFICE BUILDING ONE 1.2.840.114 350.1.13.10 4.2.7.2.686 [id number] [id number] [facility] 2021-03-08 10:00:00 2021-03-08 11:02:53 Office Visit ChineduKaushik [facility] [address] 1.2.840.114 350.1.13.58 9.2.7.2.686 [id number] 3 [id number] [facility] 2021-02-18 10:00:00 2021-02-18 10:24:37 Office Visit ChineduKaushik UTP [address] 1.2.840.114 350.1.13.58 9.2.7.2.686 [id number] 3 [id number] [facility] 2021-02-05 00:00:00 2021-02-05 00:00:00 EXT [facility] OP Kaushik Che EXT [facility] LOCATION 1.2.840.114 350.1.13.58 9.2.7.2.686 [id number] [facility] 2021-02-05 00:00:00 2021-02-05 00:00:00 EXT [facility] OP Kaushik Che EXT [facility] LOCATION 1.2.84.114 350.1.13.58 9.2.7.2.686 [id number] [facility] 2021-01-31 00:00:00 2021-01-31 00:00:00 Nicole Sanchez [facility] OFFICE BUILDING ONE 1.84.114 350.1.13.10 4.2.7.2.686 [id number] [id number] [facility] 2021-01-08 09:27:06 2021-01-08 09:57:06 [facility] OFF[facility] BUILDING 1.84.114 350.1.13.10 4.2.7.2.686 [id number] [id number] [facility] 2021-01-08 09:30:00 2021-01-08 09:30:[address] [facility] [id number] [facility] 2020-12-13 08:42:14 2020-12-13 08:57:14 Office Visit Nicole Carter [facility] Building 1.84.114 350.1.13.10 4.2.7.2.686 [id number] [facility] 2020-12-13 08:30:00 2020-12-13 08:30:[address] [facility] [id number] [facility] 2020-10-31 00:00:00 2020-10-31 00:00:00 Seth MikalaluliNicole [facility] Office Building One 1.84.114 350.1.13.10 4.2.7.2.686 [id number] [id number] [facility] 2020-09-18 08:41:19 2020-09-18 09:01:19 Process Assistant Visit Lab, Adc Gt ErvinNicole bateman [facility] Office Building One 1..114 350.1.13.10 4.2.7.2.686 [id number] [facility] 2020-09-18 08:09:31 2020-09-18 08:52:40 Office Visit Nicole Carter [facility] Office Building One 1..114 350.1.13.10 4.2.7.2.686 [id number] [facility] 2020-09-18 08:15:00 2020-09-18 08:15:[address] [facility] [id number] [facility] 2020-09-12 00:00:00 2020-09-12 00:00:00 Telephone Team, [facility] 1..114 350.1.13.10 4.2.7.2.686 [id number] [facility] 2020-09-11 00:00:00 2020-09-11 00:00:00 Seth Hailey [facility] Office Building One 1..114 350.1.13.10 4.2.7.2.686 [id number] [id number] [facility] 2020-07-31 11:14:01 2020-07-31 11:35:55 Urgent Care Provider, [facility] 1..114 350.1.13.10 4.2.7.2.686 [id number] [facility] 2020-07-31 11:20:00 2020-07-31 11:20:[address] [facility] [id number] [facility] 2020-07-31 00:00:00 2020-07-31 00:00:00 Orders Only Doctor Unassigned, [place] [facility] 1.2840.114 350.1.13.10 4.2.7.2.686 [id number] [facility] 2020-07-18 00:00:00 2020-07-18 00:00:00 Telephone Hailey [facility] Office Building One 1.2840.114 350.1.13.10 4.2.7.2.686 [id number] [facility] 2020-07-12 00:00:00 2020-07-12 00:00:00 Orders Only Doctor Unassigned, [place] [facility] 1.2840.114 350.1.13.10 4.2.7.2.686 [id number] [facility] 2020-06-05 15:10:00 2020-06-05 15:10:[address] [facility] [id number] [facility] 2020-05-22 00:00:00 2020-05-22 00:00:00 Orders Only Doctor Unassigned, [place] [facility] 1.2840.114 350.1.13.10 4.2.7.2.686 [id number] [facility] 2020-05-15 15:20:00 2020-05-15 15:20:[address] [facility] [id number] [facility] 2020-05-08 00:00:00 2020-05-08 00:00:00 Patient Outreach Christian Sheikh [facility] 1.2840.114 350.1.13.10 4.2.7.2.686 [id number] [facility] 2020-04-25 00:00:00 2020-04-25 00:00:00 Patient Secure [facility] Mikalacynthiabhavana [facility] OFFICE BUILDING ONE 1.840.114 350.1.13.10 4.2.7.2.686 [id number] [facility] 2020-04-25 00:00:00 2020-04-25 00:00:00 Telephone Nicole Carter [facility] Office Building One 1.840.114 350.1.13.10 4.2.7.2.686 [id number] [facility] 2020-04-24 10:55:25 2020-04-24 11:15:25 Process Assistant Visit Lab, Brady Fam Micheleb I Hailey [facility] Office Building One 1.840.114 350.1.13.10 4.2.7.2.686 [id number] [facility] 2020-04-24 10:31:47 2020-04-24 10:46:47 Office Visit Nicole Carter [facility] Office Building One 1.0.114 350.1.13.10 4.2.7.2.686 [id number] [facility] 2020-04-24 10:30:00 2020-04-24 10:30:[address] [facility] [id number] [facility] 2020-03-08 14:10:28 2020-03-08 14:25:28 Process Assistant Visit 2, Adc Lab Nicole Carter [facility] Building 1.84.114 350.1.13.10 4.2.7.2.686 [id number] [facility] 2020-03-08 08:15:00 2020-03-08 08:15:[address] [facility] [id number] [facility] 2020-03-08 06:50:46 2020-03-08 07:05:46 Telemedici ne Visit MikalacynthiaNicole bateman [facility] Office Building One 1.84.114 350.1.13.10 4.2.7.2.686 [id number] [facility] 2020-03-07 10:15:00 2020-03-07 10:15:[address] [facility] [id number] [facility] 2020-02-29 00:00:00 2020-02-29 00:00:00 Refill Mikalaluli [facility] Office Building One 1.84.114 350.1.13.10 4.2.7.2.686 [id number] [facility] 2020-01-17 09:00:37 2020-01-17 09:20:37 Process Assistant Visit Lab, Adc Fam Pob I Hailey [facility] Office Building One 1.84.114 350.1.13.10 4.2.7.2.686 [id number] [facility] 2020-01-17 09:20:00 2020-01-17 09:20:[address] [facility] [id number] [facility] 2020-01-16 09:40:00 2020-01-16 09:40:[address] [facility] [id number] [facility] 2020-01-13 16:05:27 2020-01-13 16:20:27 Office Visit Hailey Nicole [facility] Office Building One 1..114 350.1.13.10 4.2.7.2.686 [id number] [facility] 2020-01-13 16:00:00 2020-01-13 16:00:[address] [facility] [id number] [facility] 2019-12-13 14:22:34 2019-12-13 14:35:32 Process Assistant Visit Lab, [facility] Pob I Nicole Carter [facility] Office Building One 1.114 350.1.13.10 4.2.7.2.686 [id number] [facility] 2019-12-13 13:47:05 2019-12-13 14:02:05 Office Visit Nicole Carter [facility] Office Building One 1.114 350.1.13.10 4.2.7.2.686 [id number] [facility] 2019-12-13 13:45:00 2019-12-13 13:45:[address] [facility] [id number] [facility] 2019-12-06 09:44:22 2019-12-06 09:59:59 Process Assistant Visit Lab, [facility] Pob I Isaac Bang [facility] Office Building One 1.114 350.1.13.10 4.2.7.2.686 [id number] [facility] 2019-12-06 09:12:12 2019-12-06 09:27:12 Office Visit Nicole Carter [facility] Office Building One 1.114 350.1.13.10 4.2.7.2.686 [id number] [facility] 2019-12-06 09:15:00 2019-12-06 09:15:[address] [facility] [id number] [facility] 2019-07-08 00:00:00 2019-07-08 00:00:00 Refill Hailey [facility] Office Building One 1.114 350.1.13.10 4.2.7.2.686 [id number] [facility] 2019-07-08 00:00:00 2019-07-08 00:00:00 Refill Hailey [facility] Office Building One 1.2.840.114 350.1.13.10 4.2.7.2.686 [id number] [id number] 2019-06-20 00:00:00 2019-06-20 00:00:00 Refill Hailey [facility] Office Building One 1.2.840.114 350.1.13.10 4.2.7.2.686 [id number] [facility] 2019-06-20 00:00:00 2019-06-20 00:00:00 Refill Hailey [facility] Office Building One 1.2.840.114 350.1.13.10 4.2.7.2.686 [id number] [id number] 2019-05-19 00:00:00 2019-05-19 00:00:00 Telephone Hailey [facility] Office Building One 1.2.840.114 350.1.13.10 4.2.7.2.686 [id number] [id number] 2019-05-19 00:00:00 2019-05-19 00:00:00 Telephone Hailey [facility] Office Building One 1.2.840.114 350.1.13.10 4.2.7.2.686 [id number] 044 [id number] [facility] Results Test Description Test Time Test Comments Results Result Co mments Source [facility] [id number] 20:32:09EXAM: CT ANGIOGRAM HEAD, CT ANGIOGRAM NECK HISTORY:looking for vertebral artery dissection. Additional history: Left-sided neck pain of 5 months duration, worse since3 weeks ago. No history of trauma. COMPARISON: None TECHNIQUE: ?Spiral CT acquisition of the head and neck was performed afterthe intravenous administration of contrast for the purposes of CTA. 3-Dreformats were provided as well. FINDINGS: CTA NECK: AORTIC ARCH: Classic 3 vessel aortic arch anatomy. The ostia of the majorvessels are patent without flow-limiting stenosis. INNOMINATE & SUBCLAVIAN ARTERIES: Patent without flow-limiting stenosis. CAROTIDS: Retropharyngeal course of the right common carotid artery.Calcified and noncalcified atherosclerotic plaques of bilateral carotidbulbs and the left proximal internal carotid artery causing no significantstenosis. The common carotid and internal carotid arteries are visualizedand patent without significant stenosis. VERTEBRAL ARTERIES: The bilateral vertebral arteries chevy ginate from thesubclavian arteries and are visualized throughout the entire cervicalcourse. The ostia are free of stenosis. No high-grade stenosis ordissection is identified. Tissues of the neck are unremarkable. Lung apices are clear. CTA HEAD: The vertebral arteries are codominant and patent without significantstenosis. The PICA origin is visualized bilaterally. The basilar artery isnormal in caliber. The superior cerebellar arteries are patent. Theposterior cerebral arteries are patent without stenosis. The distal cervical, petrous, cavernous and supraclinoid internal carotidarteries are unremarkable. The anterior and middle cerebral arteries areunremarkable. An anterior communicating artery is visualized. No high-grade stenosis, aneurysm or vascular malformation. The dural venous sinuses appear patent. The visualized paranasal sinuses and bilateral mastoid air cells areotherwise clear. Visualized brain is unremarkable. The calvarium isunremarkable. Superficial soft tissues and globes are otherwiseunremarkable.[facility] 2023-04-10 20:32:09EXAM: CT ANGIOGRAM HEAD, CT ANGIOGRAM NECK HISTORY:looking for vertebral artery dissection. Additional history: Left-sided neck pain of 5 months duration, worse since3 weeks ago. No history of trauma. COMPARISON: None TECHNIQUE: ?Spiral CT acquisition of the head and neck was performed afterthe intravenous administration of contrast for the purposes of CTA. 3-Dreformats were provided as well. FINDINGS: CTA NECK: AORTIC ARCH: Classic 3 vessel aortic arch anatomy. The ostia of the majorvessels are patent without flow-limiting stenosis. INNOMINATE & SUBCLAVIAN ARTERIES: Patent without flow-limiting stenosis. CAROTIDS: Retropharyngeal course of the right common carotid artery.Calcified and noncalcified atherosclerotic plaques of bilateral carotidbulbs and the left proximal internal carotid artery causing no significantstenosis. The common carotid and internal carotid arteries are visualizedand patent without significant stenosis. VERTEBRAL ARTERIES: The bilateral vertebral arteries originate from thesubclavian arteries and are visualized throughout the entire cervicalcourse. The ostia are free of stenosis. No high-grade stenosis ordissection is identified. Tissues of the neck are u nremarkable. Lung apices are clear. CTA HEAD: The vertebral arteries are codominant and patent without significantstenosis. The PICA origin is visualized bilaterally. The basilar artery isnormal in caliber. The superior cerebellar arteries are patent. Theposterior cerebral arteries are patent without stenosis. The distal cervical, petrous, cavernous and supraclinoid internal carotidarteries are unremarkable. The anterior and middle cerebral arteries areunremarkable. An anterior communicating artery is visualized. No high-grade stenosis, aneurysm or vascular malformation. The dural venous sinuses appear patent. The visualized paranasal sinuses and bilateral mastoid air cells areotherwise clear. Visualized brain is unremarkable. The calvarium isunremarkable. Superficial soft tissues and globes are otherwiseunremarkable. [facility] Molecular [id number] 18:04:34* Test Item Value Reference Range Interpretation Comme [facility] POCT Molecular FluA (test co de = 66751-1) Negative Negative POCT Molecular FluB (test co de = 64463-1) Negative Negative Lab Interpretation (test cod e = 33731-9) Normal [facility] SARS-COV-2 ANTIGEN (BINAX NOW)2023-04-01 18:01:00* Test Item Value Reference Range Interpretation Comme [facility] POCT SARS-COV-2 ANTIGEN (test code = 37924-1) Positive Not Detected A On board controls acceptable with C Line (test code = 3574) Yes CLAUDIA (test code = CLAUDIA) accurate developme nt and interpretation of all internal controls Lab Interpretation (test code = 21406-1) Abnormal [facility], Crossmatch [id number] 00:55:00* Test Item Value Reference Range Interpretation Comme [facility] Product 1 Code (test code = PRODCODE1) E0336 Unit 1 ID (test code = UNITID1) [id number] Unit 1 ABO (test code = UNITABO1) O Unit 1 Rh (test code = UNITRH1) POS Unit 1 Interp (test code = UNITINTERP1) Compatible Unit 1 Status (test code = UNITSTAT1) RE Product 2 Code (test code = PRODCODE2) E4532 Unit 2 ID (test code = UNITID2) [id number] Unit 2 ABO (test code = UNITABO2) O Unit 2 Rh (test code = UNITRH2) POS Unit 2 Interp (test code = UNITINTERP2) Compatible Unit 2 Status (test code = UNITSTAT2) RE Comprehensive Metabolic [id number] 07:28:00* Test Item Value Reference Range Interpretation Comme nts Sodium (test code = NA) 134 mmol/L 135-145 L Potassium (test code = K) 4.5 mmol/L 3.5-5.1 N Chloride (test code = CL) 99 mmol/L 98-105 N Carbon Dioxide (test code = CO2) 24 mmol/L 22-29 N Glucose (test code = GLU) 213 mg/dL 70-115 H Blood Urea Nitrogen (test code = BUN) 14 mg/dL 6-20 N Creatinine (test code = CREAT) 1.1 mg/dL 0.5-0.9 H Calcium (test code = CA) 8.0 mg/dL 8.3-10.5 L Prot Total (test code = TP) 6.5 g/dL 6.4-8.3 N Albumin (test code = ALB) 3.5 g/dL 3.5-5.2 N A/G Ratio (test code = AGRATIO) 1.2 Ratio Globulin (test code = GLOB) 3.0 2.9-3.1 N Bili Total (test code = TBIL) 0.6 mg/dL 0.1-0.9 N Alk Phos (test code = APHOS) 77 U/L 35-104 N AST (test code = AST) 36 U/L 1-32 H ALT (test code = ALT) 29 U/L 1-33 N BUN/Creatinine Ratio (test code = BCRATIO) 12.7 Anion Gap (test code = AGAP) 11 mmol/L 7-16 N Estimated GFR (test code = GFR) 57 mL/min/1.73m2 eGFR (estimated Glomerular Filtration Rate) is an estimated value,calculated from the patient's serum creatinine using the MDRD equation.It is NOT the patient's actual GFR. The eGFR provides a more clinicallyuseful measure of kidney disease than serum creatinine alone.This calculation takes sex and race into account, if the informationis provided. If the race is not provided, and the patient isAfrican-Citizen Of The [place], multiply by 1.212. If sex is not provided, and thepatient is female, multiply by 0.742. Results for patients <18 years ofage have not been validated by the MDRD study and should be interpretedwith caution.eGFR Result Interpretation:eGFR > or = 60 is in the Normal RangeeGFR < 60 may mean kidney diseaseeGFR < 15 may mean kidney failureRanges recommended by the National Kidney Foundation,http://nkdep .nih.gov CBC with [id number] 07:18:00* Test Item Value Reference Range Interpretation Comme nts WBC (test code = WBC) 15.8 K/cumm 4.4-10.5 H RBC (test code = RBC) 3.96 M/cumm 3.75-5.20 N Hemoglobin (test code = HGB) 11.1 gm/dL 12.2-14.8 L Hematocrit (test code = HCT) 33.3 % 36.5-44.4 L MCV (test code = MCV) 84.0 fL 80-100 N MCH (test code = MCH) 27.9 pg 27.0-32.5 N MCHC (test code = MCHC) 33.2 g/dL 32.0-37.5 N RDW (test code = RDW) 13.9 % 11.5-14.5 N Platelet Count (test code = PLTCT) 336 K/cumm 140-440 N MPV (test code = MPV) 8.1 fL Diff Method (test code = DIFFM) Auto Neutrophil (test code = NEUT) 81.3 % 36-70 H Lymphocyte (test code = LYMPH) 12.6 % 12-44 N Monocyte (test code = MONO) 5.4 % 0-11 N Eosinophil (test code = EOS) 0.6 % 0-7 N Basophil (test code = BASO) 0.2 % 0-2 N Neutro Abs (test code = ANEUT) 12.8 K/cumm 1.6-7.4 H Lymph Abs (test code = ALYMPH) 2.0 K/cumm 0.5-4.6 N Gillespie Abs (test code = AMONO) 0.9 K/cumm 0.0-1.2 N Eos Abs (test code = AEOS) 0.09 K/cumm 0.00-0.74 N Baso Abs (test code = ABASO) 0.0 K/cumm 0.00-0.21 N Antibody Screen - [id number] 09:07:00* Test Item Value Reference Range Interpretation Comme nts Antibody Screen (test code = ABSCR) Negative Blood Type and [id number] 08:48:00* Test Item Value Reference Range Interpretation Comme nts ABO type (test code = ABO) O Rh Type (test code = RH) Positive POC Glucose, [id number] 06:53:00* Test Item Value Reference Range Interpretation Comme nts POC Glucose (test code = POCGLUC) 146 mg/dL 70-115 H Notify RN or MDI f you consider your patient critically ill, the Anton Accu-Chek InformII metershould not be used for Glucose determinations.Draw a venous Glucose and send to the Main Lab for Analysis. BHCG, Urine, [id number] 06:41:00* Test Item Value Reference Range Interpretation Comme nts Preg Qual [Ur] (test code = HUHCG) Negative Negative N POC Glucose, [id number] 11:53:00* Test Item Value Reference Range Interpretation Comme nts POC Glucose (test code = POCGLUC) 108 mg/dL 70-115 N If you consider your patient critically ill, the Anton Accu-Chek InformII metershould not be used for Glucose determinations.Draw a venous Glucose and send to the Main Lab for Analysis. Notes Date/Time Note Provider Source 2023-10-14 10:03:40 Please review and sign if appropriate: Last office visit: 06/18/23 Next office visit: not scheduled Requested Prescriptions Pending Prescriptions Disp Refills amphetamine-dextroamphetamine (ADDERALL XR) 20 mg 24 hr capsule 30 capsule 0 Sig: Take 1 capsule by mouth every morning. Last refill date: 08/18/23 Notes: Attention deficit disorder (ADD) in adult Chantel Mack LVN [facility] 2023-08-20 08:34:50 Contacted patient to follow up with them regarding their procedure at the [facility] pain procedure suite. The patient reported the following information: 1) Are you currently having any nausea or vomiting? no 2) Do you or have you had any drainage at your injection site? no 3) What was your pain scale prior to your procedure? 2 4) What is your pain scale now? 1 5) Have you had any difficulty urinating? no 6) Do you now or since your procedure have you had any fever? no 7) Is there anything concerning that you would like to share with your provider? no 8) Were you satisfied with your care and experience in the [facility] Pain Procedure Suite? yes Melissa Landaverde RN 08/20/2023 8:35 AM Melissa Landaverde RN [facility] 2023-08-18 09:52:21 Notes:Please Review Last Refilled: Disp Refills Start End MARSHALL amphetamine-dextroamphetamine (ADDERALL XR) 20 mg 24 hr capsule 30 capsule 0 07/06/2023 -- -- Sig: Take 1 capsule by mouth every morning. Sent to pharmacy as: dextroamphetamine-amphetamine ER 20 mg 24hr capsule,extend release (Adderall XR) Class: eRX Earliest Fill Date: 07/06/2023 Route: Oral Order: [id number] Date/Time Signed: 07/06/2023 15:35 E-Prescribing Status: Receipt confirmed by pharmacy (07/06/2023 3:35 PM CD Recent Visits Date Type Provider Dept 06/18/23 Office Visit Nicole Carter MD Ang[facility] Med 01/05/23 Office Visit Nicole Carter MD Ang[facility] 12/02/22 Office Visit Nicole Carter MD [facility] 06/04/22 Office Visit Nicole Carter MD [facility] Showing recent visits within past 540 days with a meds authorizing provider and meeting all other requirements Future Appointments No visits were found meeting these conditions. Showing future appointments within next 150 days with a meds authorizing provider and meeting all other requirements' Melvina Guillen [facility] 2023-08-13 14:24:41 Spoke with patient who verbalizes understanding that pain procedure will be done in clinic without sedation. Instructed to follow physician's instructions regarding blood thinners and NSAIDS. Location [address] [place] [address]. Pt has clinic contact information. Appointment time verified. Arrival time 1400 given. Pina Montiel RN [facility] 2023-07-28 08:43:56 Copied from [facility] #[id number]. 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 Jeaneth LEMON#---[phone] Ruby Fernandez [facility] 2023-07-06 13:16:35 Notes: Please Review Last Refilled: amphetamine-dextroamphetamine (ADDERALL XR) 20 mg 24 hr capsule 30 capsule 0 06/08/2023 -- -- Sig: Take 1 capsule by mouth every morning. Sent to pharmacy as: dextroamphetamine-amphetamine ER 20 mg 24hr capsule,extend release (Adderall XR) Class: eRX Earliest Fill Date: 06/08/2023 Route: Oral Order: [id number] Date/Time Signed: 06/08/2023 11:55 E-Prescribing Status: Receipt confirmed by pharmacy (06/08/2023 11:56 AM CDT Recent Visits Date Type Provider Dept 06/18/23 Office Visit Nicole Carter MD [facility] 01/05/23 Office Visit Nicole Carter MD [facility] 12/02/22 Office Visit Nicole Carter MD [facility] 06/04/22 Office Visit Nicole Carter MD [facility] Showing recent visits within past 540 days with a meds authorizing provider and meeting all other requirements Future Appointments No visits were found meeting these conditions. Showing future appointments within next 150 days with a meds authorizing provider and meeting all other requirements Melvina Guillen [facility] 2023-07-06 13:16:29 Images from the original note were not included. Requested Renewals amphetamine-dextroamphetamine (ADDERALL XR) 20 mg 24 hr capsule Sig: Take 1 capsule by mouth every morning. Disp: 30 capsule Refills: 0 Start: 07/06/2023 Earliest Fill Date: 07/06/2023 Class: eRX For: Attention deficit disorder (ADD) in adult Last ordered: 4 weeks ago (06/08/2023) by Nicole Carter MD Provider Review Required Qlgdso5507/06/2023 01:16 PM Protocol Details This refill cannot be delegated Valid encounter within last 12 months To be filled at: [facility]/pharmacy #[id number] - [address] Recent Visits Date Type Provider Dept 06/18/23 Office Visit Nicole Carter MD [facility] 01/05/23 Office Visit Nicole Carter MD [facility] 12/02/22 Office Visit Nicole Carter MD [facility] 06/04/22 Office Visit Nicole Carter MD [facility] Showing recent visits within past 540 days with a meds authorizing provider and meeting all other requirements Future Appointments No visits were found meeting these conditions. Showing future appointments within next 150 days with a meds authorizing provider and meeting all other requirements Rosa Goodson LVN [facility] 2023-06-23 14:58:24 Patient has viewed lab results in My Chart Seen by patient Belgica Mcnamara Angela on 06/23/2023 10:55 AM [facility] 2023-06-18 11:00:00 Images from the original note were not included. Venipuncture collection performed by clean technique on the right anticubitus. Total of 1 attempts were made. Slight pressure and a bandage/dressing were applied to the site(s). The patient experienced no complications. The following specimens were processed according to instructions and sent to [facility] laboratories per lab order on 06/18/2023 : LT BLUE SST 1 RED LAV 1 PPT DK GREEN (LiHep) DK GREEN (SodH) NORIEGA DK BLUE (K2) DK BLUE (S) ACD Blood Culture NIPT/NTD Patient has been identified by and name and was provided with cup, antiseptic towelette, and clean catch instructions. 1 urine specimen(s) sent. Unpreserved 1 Urine Culture Aptima tube Other urine [facility] 2023-06-11 13:57:58 [facility] Everywhere searched for patient records.Information reconciled into the patients chart. [employer] message sent to patient with open care gaps and CRC questionnaire . T [facility] 2023-06-08 09:20:12 Recent Visits Date Type Provider Dept 01/05/23 Office Visit Nicole Carter MD [facility] Med 12/02/22 Office Visit Nicole Carter MD [facility] Med 06/04/22 Office Visit Nicole Carter MD [facility] Showing recent visits within past 540 days with a meds authorizing provider and meeting all other requirements Future Appointments Date Type Provider Dept 06/18/23 Appointment Nicole Carter MD [facility] Showing future appointments within next 150 days with a meds authorizing provider and meeting all other requirements Last refill was Disp Refills Start End MARSHALL amphetamine-dextroamphetamine (ADDERALL XR) 20 mg 24 hr capsule 30 capsule 0 04/30/2023 -- Daphnie Benito MA [facility] 2023-05-25 08:48:57 Last Refilled: hydroCHLOROthiazide 25 mg tablet 90 tablet 1 11/20/2022 -- No Sig: TAKE 1 TABLET BY MOUTH EVERY DAY IN THE MORNING Sent to pharmacy as: hydroCHLOROthiazide 25 mg tablet (ESIDRIX) Class: eRX Route: Oral Order: [id number] Date/Time Signed: 11/20/2022 10:13 E-Prescribing Status: Receipt confirmed by pharmacy (11/20/2022 10:13 AM CDT) Recent Visits Date Type Provider Dept 01/05/23 Office Visit Nicole Carter MD Ang[facility] 12/02/22 Office Visit Nicole Carter MD [facility] 06/04/22 Office Visit Nicole Carter MD [facility] Showing recent visits within past 540 days with a meds authorizing provider and meeting all other requirements Future Appointments No visits were found meeting these conditions. Showing future appointments within next 150 days with a meds authorizing provider and meeting all other requirements Melvina Guillen [facility] 2023-04-08 10:30:27 Patient comment: I believe Dr. Carter was going to raise the dosage amount on my next refill. Goodson LVN [facility] 2023-02-23 11:44:47 Recent Visits Date Type Provider Dept 01/05/23 Office Visit Nicole Carter MD [facility] 12/02/22 Office Visit Nicole Carter MD [facility] 06/04/22 Office Visit Nicole Caretr MD Ang[facility] 09/26/21 Office Visit Nicole Carter MD [facility] Showing recent visits within past 540 days with a meds authorizing provider and meeting all other requirements Future Appointments No visits were found meeting these conditions. Showing future appointments within next 150 days with a meds authorizing provider and meeting all other requirements Last refill was Disp Refills Start End MARSHALL lisdexamfetamine (VYVANSE) 30 mg capsule 30 capsule 0 01/05/2023 -- No Sig: Take 1 capsule by mouth every morning. Sent to pharmacy as: lisdexamfetamine 30 mg capsule (Vyvanse) [facility] 2017-06-22 14:04:05 [facility] enter Operative Report/Procedure PATIENT NAME: BELGICA MILLER PHYSICIAN: Doc Angeles MD Admitted: MR NUMBER: [id number] DISCHARGED: 06/11/2017 03:40:00 DATE OF OPERATION: 06/09/2017 PREOPERATIVE DIAGNOSES: Morbid obesity with multiple comorbidities of morbid obesity with failure of dietary effort for weight loss and previous history of sleeve gastrectomy with diverticula of the proximal stomach and recurrent diaphragmatic hiatal hernia with gastroesophageal reflux disease. POSTOPERATIVE DIAGNOSES: 1. Morbid obesity with multiple comorbidities of morbid obesity with failure of dietary effort for weight loss and previous history of sleeve gastrectomy with diverticula of the proximal stomach and recurrent diaphragmatic hiatal hernia with gastroesophageal reflux disease. 2. Extensive intra-abdominal adhesions. PROCEDURES PERFORMED: 1. Laparoscopy, laparoscopic extensive lysis of intra-abdominal adhesion, jejunojejunostomy with small isolated gastric pouch Rolando-en-Y gastric bypass with a 21 mm circular stapler and oral anvil. 2. Repair of diaphragmatic hiatal hernia with anterior cruropexy and esophagopexy, no fundoplasty. 3. Esophagogastrojejunoscopy. 4. 19-English Rony drain of peritoneal cavity. SURGEON: Doc Angeles MD PACKER INSPECTOR: Chris Ron. ESTIMATED BLOOD LOSS: 200 mL. DETAILS OF PROCEDURE: Under adequate general anesthesia, the abdomen was prepped and draped with ChloraPrep. A transverse incision in the left of the umbilicus was made about 12 mm and Optiview trocar under visualization was then inserted into peritoneal cavity. The abdomen insufflated with carbon dioxide with automatic insufflator with a preset pressure of 17 mmHg. Significant adhesions were present in the abdominal cavity from previous surgery, secondary trocar inserted under visualization using two 12 mm trocar in the right epigastrium, a 5 mm trocar for placement of Renetta liver retractor and a 5 mm trocar in the left subcostal area. In addition, a 12 mm trocar at the left anterior axillary line at the level of umbilicus was inserted. Adhesions were taken down with Harmonic scalpel. Again, the stomach was dissected free, initially diaphragmatic hiatal hernia was dissected free and gastric pouch was developed by transecting the stomach and upper part of stomach with Endo-TARYN using Covidian purple 60 mm staple. After completion of the gastric pouch, a 21 mm oral anvil was inserted by anesthesiologist, brought out posterior to the staple line and [facility] Operative Report/Procedure then repair of hiatal hernia was carried out with 2-0 silk and [id number] suture for closure of diaphragmatic hiatal hernia. Then, the esophagopexy was carried out to prevent migration after patching the chest and fundoplasty was carried out by suturing the fundus of stomach into the anterior wall of the esophagus. Then, Treitz ligament was identified and approximately a 30 cm distal to Treitz ligament, the small bowel was divided with Endo-TARYN stapler using a 60 mm rincon staple and the mesentery was divided with Harmonic scalpel and then distally was measured 100 cm and then jejunojejunostomy was carried out with application of 2 staple in the opposite direction. The mesentery between biliopancreatic limb and Rolando limb was closed with 2-0 silk continuous suture and then the Domingo hernia space between mesentery, small bowel and the colon was closed with 2-0 continuous suture. Then, the omentum was divided to the right side at the midline and then gastrojejunostomy anastomosis was carried out with circular stapler, a ciruclar stapler was inserted and brought up into the peritoneal cavity and into the lumen of the Rolando limb and gastrojejunostomy anastomosis was completed with it and 21 mm circular stapler, and then the excess small bowel was excised and removed from the peritoneal cavity and then cross clamp was placed across the Rolando limb and upper GI endoscopy was carried out. The gastroscope inserted into the esophagus. A satisfactory repair of hiatal hernia was noted and the scope was advanced into the gastric pouch and distention of gastric pouch with air showed no leak in the gastrojejunostomy anastomosis. There is no bleeding. Anastomosis appeared to be appropriate and pouch is very small. The scope was advanced in the small bowel. Air was suctioned. Gastroscope was removed. Fibrin glue was used to reinforce the gastrojejunostomy anastomosis and then the CO2 was released and a 19-English Rony drain was placed posterior to the gastrojejunostomy anastomosis and the site of insertion of circular stapling left abdomen was closed with a William-Nia needle and #1 Vicryl suture and then all the incision closed with a 2-0 and 4-0 Vicryl suture. Blood loss was 200 mL. Sterile dressing was applied. The patient sent to the recovery room in satisfactory condition. MD ESTHELA Mendoza/MASON/YAEL/MEJIA TD: 06/20/2017 20:50 CC:Doc Angeles MD([employer]) Edited by: Doc Angeles MD On 06/22/2017 02:00 PM CDT Electronically Authenticated and Edited by: Doc Angeles MD On 06/22/2017 02:03 PM CDT [facility] 2017-06-11 20:55:33 [facility] enter History and Physical Pre-Op PATIENT NAME: BELGICA MILLER PHYSICIAN: Doc Angeles MD Admitted: MR NUMBER: [id number] DISCHARGED: HISTORY OF PRESENT ILLNESS: The patient is going to be admitted on 06/09/2017. This is a 46-year-old white female with a history of morbid obesity with multiple comorbidities of morbid obesity and current weight of 235 pounds and the patient is 5 feet 4 inches tall with a body mass index of approximately 40 kilograms per square meter and this patient has failed dietary for weight loss. The patient had also previous history of sleeve gastrectomy with a large distended stomach patchy and failure of weight loss. PAST MEDICAL HISTORY: The patient has type 2 diabetes mellitus, hypertension, depression, menstrual disorder, restrictive pulmonary disease and shortness of breath, obstructive sleep apnea, urinary stress incontinence. PAST SURGICAL HISTORY: Including a laparoscopic cholecystectomy in 2015, salpingectomy in 2015, sleeve gastrectomy in 2011, endometrial ablation in 2013, bilateral tubal ligation in 1999, sinus surgery in 1990. CURRENT MEDICATIONS: Including; 1. Trokendi 25 mg daily. 2. Celexa 40 mg daily. 3. Metformin 500 mg b.i.d. 4. Bupropion 150 mg b.i.d. 5. Telmisartan 80 mg daily. ALLERGIES: THE PATIENT HAS NO KNOWN ALLERGY TO ANY MEDICATION. SOCIAL HISTORY: The patient is para 3, 3, and no history of alcohol, tobacco, or substance abuse. FAMILY HISTORY: Positive for hypertension, diabetes mellitus, and diverticulitis. PHYSICAL EXAMINATION: GENERAL: This is a 46-year-old white female. VITAL SIGNS: Current weight of 235 pounds, the patient is 5 feet 4 inches tall, body mass index of 40 kg per square meter. HEAD, EYES, EARS, NOSE AND THROAT: Unremarkable. CHEST: Symmetrical. HEART: Sounds clinically within normal limits. LUNGS: Clear. ABDOMEN: Obese, with scar of previous surgery. EXTREMITIES: Unremarkable. IMPRESSION: 1. Morbid obesity with multiple comorbidities of morbid obesity with [facility] History and Physical Pre-Op failure dietary for weight loss with body mass index of 40 kg per square meter and previous history of sleeve gastrectomy. 2. Hypertension. 3. Type 2 diabetes mellitus. 4. Gastroesophageal reflux disease. 5. Menstrual disorder. 6. Depression. 7. Stress incontinence. 8. Restrictive pulmonary disease and shortness of breath. 9. Obstructive sleep apnea. PLAN: This patient is going to be treated with laprascopy, laparoscopy, and Rolando-en-Y gastric bypass, risks and benefits of surgery including complications associated with anesthesia, not limited to cardiorespiratory arrest and sudden , complications associated with anesthesia and surgery including bleeding that may require transfusion, reoperation, and complications associated with the surgery including staple line failure and leak and peritonitis and sepsis, DVT, pulmonary embolism, and failure of second weight loss surgery has been explained to the patient as well as dietary changes that the patient required after surgery. The patient understands the risks and benefits of surgery and agreeable to the plan of treatment. Doc Angeles MD YJohann/RAD TD: 06/06/2017 21:08 CC:Doc Angeles MD([employer]) Edited by: Doc Angeles MD On 06/08/2017 10:00 PM CDT Electronically Authenticated and Edited by: Doc Angeles MD On 06/08/2017 10:01 PM CDT [facility] 2016-12-22 09:29:37 [facility] enter Operative Report/Procedure PATIENT NAME: BELGICA MILLER PHYSICIAN: Doc Angeles MD Admitted: MR NUMBER: [id number] DISCHARGED: 12/15/2016 05:39:00 DATE OF PROCEDURE: 12/15/2016 PREOPERATIVE DIAGNOSES: Morbid obesity with multiple comorbidities of morbid obesity, gastroesophageal reflux disease, and failure of previous sleeve gastrectomy. POSTOPERATIVE DIAGNOSES: Morbid obesity with multiple comorbidities of morbid obesity, gastroesophageal reflux disease, and failure of previous sleeve gastrectomy with patulous lower esophagus and diverticula fundus stomach, mild reflux gastritis. Distended proximal antrum of stomach with mild antral gastritis. PROCEDURE PERFORMED: Esophagogastroduodenoscopy, biopsy of the antrum and stomach. SURGEON: Doc Angeles MD DESCRIPTION OF PROCEDURE: Procedure was performed in endoscopy. The patient was given IV sedation by anesthesiologist. The gastroscope was inserted in esophagus. Upper and mid esophagus was normal. Distal esophagus showed patulous lower esophagus. The scope was advanced into the stomach. Retroflexion of the scope in the fundus of stomach showed diverticula of the fundus and stomach with dilated fundus and then there was bile reflux gastritis. The scope was advanced into the stomach and the antrum and stomach. The scope was passed into the duodenum. First and second portions of duodenum and ampulla are unremarkable. Biopsy of the antrum of the stomach was obtained. Air was suctioned and scope was removed. The patient tolerated the procedure well, was sent to the recovery room in satisfactory condition. MD ESTHELA Mendoza/DIANNE/GIANCARLO/MEJIA TD: 12/15/2016 19:06 CC:Doc Angeles MD(Emd[employer]) Edited by: Doc Angeles MD On 12/22/2016 09:24 AM CDT Electronically Authenticated and Edited by: Doc Angeles MD On 12/22/2016 09:29 AM CDT [facility] 2016-12-17 15:37:42 [facility] enter Discharge Summary PATIENT NAME: BELGICA MILLER PHYSICIAN: Doc Angeles MD Admitted: MR NUMBER: [id number] DISCHARGED: 12/15/2016 05:39:00 HOSPITAL COURSE: This is a 45-year-old female with a history of morbid obesity with multiple comorbidity morbid obesity with the failure of weight loss with a previous history of sleeve gastrectomy. The patient was admitted for upper GI endoscopy. The patient underwent upper GI endoscopy on 12/15/2016 which revealed a patulous lower esophagus with diverticula of the fundus of the stomach with dilatation of the proximal stomach and the antrum of the stomach with bile reflux gastritis and post-procedure, the patient tolerated procedure well and remained stable and the patient was discharged to be followed as an outpatient in office 1 week post discharge. MD BRITTANY Mendoza TD: 12/16/2016 01:58 CC:Doc Angeles MD([employer]) [facility] Discharge Summary PATIENT NAME: BELGICA MILLER PHYSICIAN: Doc Angeles MD Admitted: MR NUMBER: [id number] DISCHARGED: 12/15/2016 05:39:00 HOSPITAL COURSE: This is a 45-year-old female with a history of morbid obesity with multiple comorbidity morbid obesity with the failure of weight loss with a previous history of sleeve gastrectomy. The patient was admitted for upper GI endoscopy. The patient underwent upper GI endoscopy on 12/15/2016 which revealed a patulous lower esophagus with diverticula of the fundus of the stomach with dilatation of the proximal stomach and the antrum of the stomach with bile reflux gastritis and post-procedure, the patient tolerated procedure well and remained stable and the patient was discharged to be followed as an outpatient in office 1 week post discharge. MD BRITTANY Mendoza TD: 12/16/2016 01:58 CC:Doc Angeles MD([employer]) Electronically Authenticated by: Doc Angeles MD On 12/17/2016 03:37 PM CDT [facility] 2016-12-15 10:22:31 [facility] enter History and Physical Pre-Op PATIENT NAME: BELGICA MILLER PHYSICIAN: Doc Angeles MD Admitted: MR NUMBER: [id number] DISCHARGED: The patient is going to be admitted on 12/15/2016 HISTORY OF PRESENT ILLNESS: This is a 45-year-old white female with a history of morbid obesity with multiple comorbidities of morbid obesity with current weigh of 230 pounds, admitted for evaluation of gastroesophageal reflux disease. PAST SURGICAL HISTORY: This patient has history of previous laparoscopic cholecystectomy in 2015 with partial salpingectomy on the right side, history of vertical sleeve gastrectomy in 2004, endometrial ablation in 2013, bilateral tubal ligation in 1999, and sinus surgery in 1990. SOCIAL HISTORY: The patient is para 3, 3, , and no history of alcohol, tobacco habit, or substance abuse. FAMILY HISTORY: Positive for hypertension, diabetes mellitus, diverticulitis, arthritis, and knee replacement. PAST MEDICAL HISTORY: This patient has a history of obesity with failure of dietary effort for weight loss with previous sleeve gastrectomy, history of hypertension, type 2 diabetes mellitus, depression and anxiety, menstrual disorder, history of borderline anemia with urinary stress incontinence. ASSESSMENT AND PLAN: The patient has been failing with the dietary restriction for weight loss. This patient is going to be evaluated with upper GI endoscopy. Doc Angeles MD YN/CTV TD: 12/14/2016 19:30 CC:Doc Angeles MD(Emdat [employer]) [facility] History and Physical Pre-Op PATIENT NAME: BELGICA MILLER PHYSICIAN: Doc Angeles MD Admitted: MR NUMBER: [id number] DISCHARGED: The patient is going to be admitted on 12/15/2016 HISTORY OF PRESENT ILLNESS: This is a 45-year-old white female with a history of morbid obesity with multiple comorbidities of morbid obesity with current weigh of 230 pounds, admitted for evaluation of gastroesophageal reflux disease. PAST SURGICAL HISTORY: This patient has history of previous laparoscopic cholecystectomy in 2015 with partial salpingectomy on the right side, history of vertical sleeve gastrectomy in 2004, endometrial ablation in 2013, bilateral tubal ligation in 1999, and sinus surgery in 1990. SOCIAL HISTORY: The patient is para 3, 3, , and no history of alcohol, tobacco habit, or substance abuse. FAMILY HISTORY: Positive for hypertension, diabetes mellitus, diverticulitis, arthritis, and knee replacement. PAST MEDICAL HISTORY: This patient has a history of obesity with failure of dietary effort for weight loss with previous sleeve gastrectomy, history of hypertension, type 2 diabetes mellitus, depression and anxiety, menstrual disorder, history of borderline anemia with urinary stress incontinence. ASSESSMENT AND PLAN: The patient has been failing with the dietary restriction for weight loss. This patient is going to be evaluated with upper GI endoscopy. Doc Angeles MD YN/CTV TD: 12/14/2016 19:30 CC:Doc Angeles MD(Emd[employer]) Electronically Authenticated by: Doc Angeles MD On 12/15/2016 10:22 AM CDT [facility]
[2023-10-23 12:00] LABS: Absolute Eosinophils 0.1 K/uL (0-0.5); Absolute Lymphocytes (CBC) 2.2 K/uL (0.7-4.9); Absolute Monocytes 0.8 K/uL (0.1-1.3); Basophils % 0.5 % (0-1.3); Hematocrit 36.2 % (36.0-45.0); Hemoglobin 11.8 g/dL (12.0-15.0); Lymphocytes % 30.6 % (15.3-44.8); MCH 29.8 pg (27.0-35.0); MCHC 32.7 g/dL (32.0-36.0); MCV 91.1 fL (80-100); MPV 9.6 fL (7.6-11.3); Monocytes % 10.6 % (3.3-12.3); Neutrophils % 56.3 % (41.7-73.7); Platelets 311 thou/uL (152-406); RBC Red Blood Cell Count 3.97 M/uL (3.86-4.86); Red Cell Distribution Width 13.2 % (12.1-15.2)
[2023-10-23 12:06] LABS: PT Prothrombin Time 11.6 SECONDS (9.4-12.5); Protime INR 1.04
[2023-10-23 12:14] LABS: Anion Gap 6.2 mEq/L (5.0-15.0); Potassium 3.2 mEq/L (3.5-5.1); Troponin High Sensitivity 5.7 pg/mL (<58.9)
--- NOTE | 2023-10-23 12:21 | RAD REPORT ---
EXAM DESCRIPTION: CT - Head Brain Wo Cont - 10/23/2023 12:02 pm CLINICAL HISTORY: Slurred speech COMPARISON: None TECHNIQUE: Computed axial tomography of the head was obtained. IV contrast was not requested. All CT scans are performed using dose optimization technique as appropriate and may include automated exposure control or mA/KV adjustment according to patient size. FINDINGS: An intracranial bleed is not seen The ventricles are normal in caliber No extra-axial fluid collection is noted. 11 millimeter low-density area right internal capsule/basal ganglia Low-density area jordana Fluid within the sinuses/ mastoids is not seen. IMPRESSION: 11 millimeter low-density area right internal capsule/basal ganglia consistent with infa rction. It has more than acute then chronic appearance. MRI recommended for further evaluation Low-density area within the jordana is a common location for beam hardening artifact. An infarction has a similar appearance. This also can be evaluated on the MRI
--- NOTE | 2023-10-23 13:26 | RAD REPORT ---
EXAM DESCRIPTION: RAD - Chest Single View - 10/23/2023 1:19 pm CLINICAL HISTORY: confusion Chest pain. COMPARISON: CHEST SINGLE VIEW dated 03/07/2012; CHEST SINGLE VIEW dated 03/31/2010; CHEST PA AND LAT 2 VIEW dated 08/04/2008; CHEST PA AND LAT 2 VIEW dated 03/19/2008 FINDINGS: Portable technique limits examination quality. The lungs are grossly clear. The heart is normal in size. No displaced fractures. IMPRESSION: No acute intrathoracic process suspected.
--- NOTE | 2023-10-23 13:34 | RAD REPORT ---
EXAM DESCRIPTION: CT - Head angio - 10/23/2023 1:24 pm CLINICAL HISTORY: dizziness Headache, drowsiness COMPARISON: <Comparisons> TECHNIQUE: CT angiography of the head was performed with MIPs. All CT scans are performed using dose optimization technique as appropriate and may include automated exposure control or mA/KV adjustment according to patient size. FINDINGS: No evidence of large vessel occlusion. No evidence of aneurysm is detected. No flow-limiti ng stenosis or vascular malformation identified. Antegrade flow is seen in the vertebral arteries. The vertebral arteries are codominant. The visualized dural venous sinuses are patent. IMPRESSION: No significant flow abnormality is detected.
--- NOTE | 2023-10-23 13:40 | RAD REPORT ---
EXAM DESCRIPTION: CT - Neck Angio - 10/23/2023 1:24 pm CLINICAL HISTORY: trouble word finding Headache, drowsiness. COMPARISON: <Comparisons> TECHNIQUE: CT angiography of the neck vessels was performed with MIPs. All CT scans are performed using dose optimization technique as appropriate and may include automated exposure control or mA/KV adjustment according to patient size. FINDINGS: A left aortic arch is identified with normal three vessel configuration of the great vesse ls. No significant flow abnormality is seen of the common carotid bilaterally. Moderate mixed plaque is present involving the left carotid bulb measuring 9 mm in length and resulti ng moderate stenosis of 70% based on NASCET criteria. Right-sided small focal hard plaque is present right carotid bulb resulting in mild stenosis less than 50% based on NASCET criteria. Normal flow is seen within both vertebral arteries. IMPRESSION: Moderate mixed plaque is seen left carotid bulb resulting in moderate stenosis approxima tely 70% based on NASCET criteria. NASCET criteria used. Mild 0-49% stenosis Moderate 50-69% stenosis Severe 70-99% stenosis
--- NOTE | 2023-10-23 15:09 | EDPHYS ---
Physician Documentation [facility] Name: Belgica Crabtree Age: 53 yrs Sex: Female : 1970 Arrival Date: 10/23/2023 Time: 11:23 Bed 15 Private MD: ED Physician John Lan HPI: 10/22 16:56 This 53 yrs old Unknown Female presents to ER via EMS with complaints of Slurred Speech.ms3 16:56 53-year-old female with past medical history of occipital neuralgia presents to the [facility] emergency department for slurred speech and lethargy at work. [facility] EMS states patient glucose was 64 on their arrival. Patient was given 15 g oral glucose. Patient with improvement of glucose to 170s prior to arrival. Patient states for the last month she has had difficulty with word finding and confusion. Patient states she saw a neurologist and was diagnosed with occipital neuralgia at that time.. Historical: - Allergies: 11:35 No Known Allergies; rs5 - PMHx: 11:35 occipital neuralgia; rs5 - PSHx: 11:35 None; rs5 - Immunization history:: Adult Immunizations up to date. - Infectious Disease History:: Denies. - Social history:: Smoking status: Patient denies any tobacco usage or history of. ROS: 16:56 Constitutional: Negative for fever, and chills. Cardiovascular: Negative for chest ms3 pain, and palpitations. Respiratory: Negative for shortness of breath, cough, wheezing, and pleuritic chest pain, Abdomen/GI: Negative for abdominal pain, nausea, vomiting, diarrhea, and constipation, MS/Extremity: Negative for injury and deformity, 16:56 Neuro: Positive for Confusion, difficulty speaking, Exam: 15:51 ECG was reviewed by the Attending Physician. ms3 16:56 Constitutional: This is a well developed, well nourished patient who is awake, alert, ms3 and in no acute distress. Head/Face: Normocephalic, atraumatic. Chest/axilla: Normal chest wall appearance and motion. Nontender with no deformity. Cardiovascular: Regular rate and rhythm with a normal S1 and S2. No gallops, murmurs, or rubs. Normal PMI, no JVD. No pulse deficits. Respiratory: Lungs have equal breath sounds bilaterally, clear to auscultation and percussion. No rales, rhonchi or wheezes noted. No increased work of breathing, no retractions or nasal flaring. Abdomen/GI: Soft, non-tender, with normal bowel sounds. No distension or tympany. No guarding or rebound. No evidence of tenderness throughout. Skin: Warm, dry with normal turgor. Normal color with no rashes, no lesions, and no evidence of cellulitis. MS/ Extremity: Pulses equal, no cyanosis. Neurovascular intact. Full, normal range of motion. Neuro: Awake and alert, GCS 15, oriented to person, place, time, and situation. Cranial nerves II-XII grossly intact. Motor strength 5/5 in all extremities. Sensory grossly intact. Cerebellar exam normal. Normal gait. Psych: Awake, alert, with orientation to person, place and time. Behavior, mood, and affect are within normal limits. Vital Signs: 11:34 BP 128 / 68; Pulse 70; Resp 17; Temp 97.8(O); Pulse Ox 99% ; rs5 12:27 BP 124 / 77; Pulse 74; Resp 16; Pulse Ox 98% on R/A; rs5 14:09 BP 127 / 70; Pulse 74; Resp 17; Pulse Ox 99% on R/A; rs5 16:01 BP 130 / 81; Pulse 70; Resp 17; Pulse Ox 99% on R/A; rs5 17:20 BP 135 / 76; Pulse 77; Resp 17; Pulse Ox 99% ; rs5 NIH Stroke Scale Scores: 11:37 NIHSS Score: 0 rs5 11:38 NIHSS Score: 0 ms3 MDM: 11:36 Patient medically screened. ms3 16:56 Data reviewed: vital signs, nurses notes, lab test result(s), radiologic studies, and ms3 as a result, I will admit patient. Consideration of Admission/Observation Patient was admitted/placed on observation. Management of patient was discussed with the following: Hospitalist: Dr. Marin. I considered the following discharge prescriptions or medication management in the emergency department Medications were administered in the Emergency Department. See MAR. Independent interpretation of the following test(s) in the Emergency Department CT Scan: My interpretation is CT head without IV contrast images reviewed by me did not reveal intracranial hemorrhage. Historians other than the Patient: EMS: B AS[facility]. Counseling: I had a detailed discussion with the patient and/or guardian regarding the historical points, exam findings, and any diagnostic results supporting the discharge/admit diagnosis, lab results, radiology results, the need for further work-up and treatment in the hospital. ED course: Discussed labs and imaging with patient necessity for observation. She understands agrees with plan. Questions were answered.. 10/22 11:38 Order name: Basic Metabolic Panel; Complete Time: 12:16 ms3 10/22 11:38 Order name: CBC with Diff; Complete Time: 12:16 ms3 10/22 11:38 Order name: High Sensitivity Troponin; Complete Time: 12:16 ms3 10/22 11:38 Order name: Protime (+inr); Complete Time: 12:16 ms3 10/22 11:38 Order name: Ptt, Activated; Complete Time: 12:16 ms3 10/22 11:39 Order name: CT Head Brain wo Cont; Complete Time: 14:31 ms3 10/22 11:39 Order name: CXR XRAY; Complete Time: 14:31 ms3 10/22 12:58 Order name: CT Neck Angio; Complete Time: 14:31 ms3 10/22 13:07 Order name: Head angio; Complete Time: 14:31 EDMS 10/22 13:44 Order name: Brain Wo Cont; Complete Time: 15:14 EDMS 10/22 11:38 Order name: Accucheck; Complete Time: 12:02 ms3 10/22 11:38 Order name: Cardiac monitoring; Complete Time: 12:02 ms3 10/22 11:38 Order name: EKG - Nurse/Tech; Complete Time: 12:02 ms3 10/22 11:38 Order name: IV Saline Lock; Complete Time: 12:02 ms3 10/22 11:38 Order name: Labs collected and sent; Complete Time: 12:02 ms3 10/22 11:38 Order name: NPO; Complete Time: 12:02 ms3 10/22 11:38 Order name: O2 Per Protocol; Complete Time: 12:02 ms3 10/22 11:38 Order name: O2 Sat Monitoring; Complete Time: 12:02 ms3 10/22 11:38 Order name: Stroke Swallow Screen; Complete Time: 12:02 ms3 EC:51 Rate is 99 beats/min. Rhythm is regular. QRS Kendall is Normal. NC interval is normal. ms3 Clinical impression: Normal ECG. Interpreted by me. Reviewed by me. Administered Medications: No medications were administered Disposition Summary: 10/23/23 15:09 Hospitalization Ordered Notes: Hospitalization Status: Inpatient Admission ms3 Provider: Liban Marin ms3 Location: Telemetry/MedSurg (Inpatient) ms3 Condition: Stable ms3 Problem: new ms3 Symptoms: are unchanged ms3 Bed/Room Type: Standard ms3 Room Assignment: 405(10/23/23 16:42) zm Diagnosis - CVA ms3 - Anomia ms3 Forms: - Medication Reconciliation Form ms3 - SBAR form ms3 - Leadership Thank You Letter ms3 NIH Stroke Scale - NIH Stroke Score Date: 10/23/2023 Time: 11:37 Total Score = 0 10. Dysarthria (speech clarity - read or repeat words) - 0(Normal) 11. Extinction and Inattention (visual/tactile/auditory/spatial/personal) - 0(No abnormality) 1a. Level of Consciousness (LOC) - 0(Alert) 1b. Level of Consciousness (LOC) (Month \T\ Age) - 0(Both) 1c. LOC Commands (Open \T\ Closes Eyes/Outcomes Analyst) - 0(Both) 2. Best Gaze (Lateral Gaze Paresis) - 0(Normal) 3. Visual Field Loss - 0(No visual loss) 4. Facial Palsy - 0(Normal) 5a. Left Arm: Motor (10-second hold) - 0(No drift) 5b. Right Arm: Motor (10-second hold) - 0(No drift) 6a. Left Leg: Motor (5-second hold - always test supine) - 0(No drift) 6b. Right Leg: Motor (5-second hold - always test supine) - 0(No drift) 7. Limb Ataxia (finger/nose \T\ heel/alcaraz - test with eyes open) - 0(Absent) 8. Sensory Loss (pinprick arms/legs/face) - 0(Normal) 9. Best Language: Aphasia (description/naming/reading) - 0(No aphasia) Initials: rs5 NIH Stroke Scale - NIH Stroke Score Date: 10/23/2023 Time: 11:38 Total Score = 0 10. Dysarthria (speech clarity - read or repeat words) - 0(Normal) 11. Extinction and Inattention (visual/tactile/auditory/spatial/personal) - 0(No abnormality) 1a. Level of Consciousness (LOC) - 0(Alert) 1b. Level of Consciousness (LOC) (Month \T\ Age) - 0(Both) 1c. LOC Commands (Open \T\ Closes Eyes/Outcomes Analyst) - 0(Both) 2. Best Gaze (Lateral Gaze Paresis) - 0(Normal) 3. Visual Field Loss - 0(No visual loss) 4. Facial Palsy - 0(Normal) 5a. Left Arm: Motor (10-second hold) - 0(No drift) 5b. Right Arm: Motor (10-second hold) - 0(No drift) 6a. Left Leg: Motor (5-second hold - always test supine) - 0(No drift) 6b. Right Leg: Motor (5-second hold - always test supine) - 0(No drift) 7. Limb Ataxia (finger/nose \T\ heel/alcaraz - test with eyes open) - 0(Absent) 8. Sensory Loss (pinprick arms/legs/face) - 0(Normal) 9. Best Language: Aphasia (description/naming/reading) - 0(No aphasia) Initials: ms3 Signatures: Dispatcher [employer] EDMS Blane Wood, ADJUSTER PIANO ACTION-C ADJUSTER PIANO ACTION-Cla1 John Lan DO DO ms3 Dolores Montiel Ricky, RN RN rs5 Corrections: (The following items were deleted from the chart) 13:44 12:58 MR STROKE PROTOCOL+MRI.RAD.URI ordered. EDMS EDMS 16:42 15:09 ms3 17:01 17:00 NIHSS Score: 0 ms3 ms3
--- NOTE | 2023-10-23 15:09 | ER ---
Nurse's Notes [facility] Name: Belgica Crabtree Age: 53 yrs Sex: Female : 1970 Arrival Date: 10/23/2023 Time: 11:23 Bed 15 Private MD: Diagnosis: CVA;Anomia Presentation: 10/22 11:34 Chief complaint: EMS states: Difficulty speaking and slurred speech x2 days. rs5 Coronavirus screen: At this time, the client does not indicate any symptoms associated with coronavirus-19. Ebola Screen: No symptoms or risks identified at this time. Initial Sepsis Screen: Does the patient meet any 2 criteria? No. Patient's initial sepsis screen is negative. Does the patient have a suspected source of infection? No. Patient's initial sepsis screen is negative. Risk Assessment: Do you want to hurt yourself or someone else? Patient reports no desire to harm self or others. Onset of symptoms was October 23, 2023. Care prior to arrival: IV initiated. 20 GA, in the right antecubital area. 11:34 Method Of Arrival: EMS: [facility] rs5 11:34 Acuity: MITZY 3 rs5 Triage Assessment: 11:35 General: Appears in no apparent distress. uncomfortable, Behavior is calm, cooperative. rs5 Pain: Denies pain. Historical: - Allergies: 11:35 No Known Allergies; rs5 - PMHx: 11:35 occipital neuralgia; rs5 - PSHx: 11:35 None; rs5 - Immunization history:: Adult Immunizations up to date. - Infectious Disease History:: Denies. - Social history:: Smoking status: Patient denies any tobacco usage or history of. Screenin:[address] [facility] ED Fall Risk Assessment (Adult) History of falling in the last 3 months, rs5 including since admission No falls in past 3 months (0 pts) Confusion or Disorientation No (0 pts) Intoxicated or Sedated No (0 pts) Impaired Gait No (0 pts) Mobility Assist Device Used No (0 pt) Altered Elimination No (0 pt) Score/Fall Risk Level 0 - 2 = Low Risk Oriented to surroundings, Maintained a safe environment. Abuse screen: Denies threats or abuse. Nutritional screening: No deficits noted. Tuberculosis screening: No symptoms or risk factors identified. Assessment: 11:35 General: Appears in no apparent distress. comfortable, Behavior is calm, cooperative. rs5 Pain: Denies pain. Neuro: Level of Consciousness is awake, alert, obeys commands, Oriented to person, place, time, situation, Equipment Service Engineer are equal bilaterally Moves all extremities. Gait is steady, Speech is normal, Facial symmetry appears normal, Pupils are PERRLA, Pupil Size: 3 mm Intact. Cardiovascular: Patient's skin is warm and dry. 11:35 Respiratory: Airway is patent Respiratory effort is even, unlabored, Respiratory rs5 pattern is regular, symmetrical. GI: Abdomen is round non-distended, Abd is soft and non tender X 4 quads. : No signs and/or symptoms were reported regarding the genitourinary system. EENT: No signs and/or symptoms were reported regarding the EENT system. Derm: Skin is intact, Skin is pink, warm \\T\\ dry. Musculoskeletal: Range of motion: intact in all extremities. 11:35 Reassessment: pt states "sometimes I have trouble getting my words out". rs5 12:41 Reassessment: Patient and/or family updated on plan of care and expected duration. Pain rs5 level reassessed. Patient is alert, oriented x 3, equal unlabored respirations, skin warm/dry/pink. Patient denies pain at this time. 13:51 Reassessment: No changes from previously documented assessment. rs5 15:10 Reassessment: Patient and/or family updated on plan of care and expected duration. Pain rs5 level reassessed. Patient is alert, oriented x 3, equal unlabored respirations, skin warm/dry/pink. 16:01 Reassessment: No changes from previously documented assessment. rs5 17:20 Reassessment: Patient and/or family updated on plan of care and expected duration. Pain rs5 level reassessed. Patient is alert, oriented x 3, equal unlabored respirations, skin warm/dry/pink. Vital Signs: 11:34 BP 128 / 68; Pulse 70; Resp 17; Temp 97.8(O); Pulse Ox 99% ; rs5 12:27 BP 124 / 77; Pulse 74; Resp 16; Pulse Ox 98% on R/A; rs5 14:09 BP 127 / 70; Pulse 74; Resp 17; Pulse Ox 99% on R/A; rs5 16:01 BP 130 / 81; Pulse 70; Resp 17; Pulse Ox 99% on R/A; rs5 17:20 BP 135 / 76; Pulse 77; Resp 17; Pulse Ox 99% ; rs5 NIH Stroke Scale Scores: 11:37 NIHSS Score: 0 rs5 11:38 NIHSS Score: 0 ms3 ED Course: 11:25 Patient arrived in ED. ec2 11:34 Victor Hugo Goodrich, RN is Primary Nurse. rs5 11:35 Triage completed. rs5 11:35 Patient has correct armband on for positive identification. Placed in gown. Bed in low rs5 position. Call light in reach. Side rails up X2. 11:35 No provider procedures requiring assistance completed. rs5 11:36 John Lan DO is Attending Physician. ms3 12:03 CT Head Brain wo Cont In Process Unspecified. EDMS 13:21 CXR XRAY In Process Unspecified. EDMS 13:26 CT Neck Angio In Process Unspecified. EDMS 13:26 Head angio In Process Unspecified. EDMS 15:05 Brain Wo Cont In Process Unspecified. EDMS 15:06 Liban Marin MD is Hospitalizing Provider. ms3 15:25 1525 CM met with patient and her three daughters at the bedside in the ED exam room ane .Patient identified by name and . Demographic sheet stated "uninsured". MPOA in place and PCP . Patient presented [employer] insurance card and CM presented card to Patient Access. states she lives with her daughter, and prior to admission, she performs ADLs independently and without physical limitations .She reports she does not have DME, HH, home oxygen or other medical services at this time. Her preferred plan is to return home upon discharge. Monika her daughter at the bedside states she can transport her home .CM team will continue to follow and coordinate care. 17:35 Patient admitted, IV remains in place. rs5 Administered Medications: No medications were administered Medication: 12:27 VIS not applicable for this client. rs5 Outcome: 15:09 Decision to Hospitalize by Provider. ms3 17:35 Admitted to Med/surg accompanied by iker, rs5 17:35 Condition: stable rs5 17:35 Instructed on the need for admit, Demonstrated understanding of instructions, 17:36 Patient left the ED. rs5 NIH Stroke Scale - NIH Stroke Score Date: 10/23/2023 Time: 11:37 Total Score = 0 10. Dysarthria (speech clarity - read or repeat words) - 0(Normal) 11. Extinction and Inattention (visual/tactile/auditory/spatial/personal) - 0(No abnormality) 1a. Level of Consciousness (LOC) - 0(Alert) 1b. Level of Consciousness (LOC) (Month \\T\\ Age) - 0(Both) 1c. LOC Commands (Open \\T\\ Closes Eyes/Call Center Supervisor) - 0(Both) 2. Best Gaze (Lateral Gaze Paresis) - 0(Normal) 3. Visual Field Loss - 0(No visual loss) 4. Facial Palsy - 0(Normal) 5a. Left Arm: Motor (10-second hold) - 0(No drift) 5b. Right Arm: Motor (10-second hold) - 0(No drift) 6a. Left Leg: Motor (5-second hold - always test supine) - 0(No drift) 6b. Right Leg: Motor (5-second hold - always test supine) - 0(No drift) 7. Limb Ataxia (finger/nose \\T\\ heel/alcaraz - test with eyes open) - 0(Absent) 8. Sensory Loss (pinprick arms/legs/face) - 0(Normal) 9. Best Language: Aphasia (description/naming/reading) - 0(No aphasia) Initials: rs5 NIH Stroke Scale - NIH Stroke Score Date: 10/23/2023 Time: 11:38 Total Score = 0 10. Dysarthria (speech clarity - read or repeat words) - 0(Normal) 11. Extinction and Inattention (visual/tactile/auditory/spatial/personal) - 0(No abnormality) 1a. Level of Consciousness (LOC) - 0(Alert) 1b. Level of Consciousness (LOC) (Month \\T\\ Age) - 0(Both) 1c. LOC Commands (Open \\T\\ Closes Eyes/Call Center Supervisor) - 0(Both) 2. Best Gaze (Lateral Gaze Paresis) - 0(Normal) 3. Visual Field Loss - 0(No visual loss) 4. Facial Palsy - 0(Normal) 5a. Left Arm: Motor (10-second hold) - 0(No drift) 5b. Right Arm: Motor (10-second hold) - 0(No drift) 6a. Left Leg: Motor (5-second hold - always test supine) - 0(No drift) 6b. Right Leg: Motor (5-second hold - always test supine) - 0(No drift) 7. Limb Ataxia (finger/nose \\T\\ heel/alcaraz - test with eyes open) - 0(Absent) 8. Sensory Loss (pinprick arms/legs/face) - 0(Normal) 9. Best Language: Aphasia (description/naming/reading) - 0(No aphasia) Initials: ms3 Signatures: Dispatcher [employer] EDJohn Og, DO DO ms3 Victor Hugo Goodrich, YOANDY RN rs5 Hunter Snell MD MD ec2 Brynn Lilly RN RN ane
--- NOTE | 2023-10-23 15:12 | RAD REPORT ---
EXAM DESCRIPTION: MRI - Brain Wo Cont - 10/23/2023 3:03 pm CLINICAL HISTORY: word finding difficulty Headache, drowsiness, CVA symptomology COMPARISON: Head angio dated 10/23/2023 TECHNIQUE: Multi-sequence, multiplanar MR imaging of the brain was performed without contrast. FINDINGS: No intracranial hemorrhage, hydrocephalus or extra-axial fluid collections.A few scattered T2/FLAIR hyperintensities in the periventricular white matter noted compatible with chronic microvas cular ischemic changes. No edema or shift of midline structures. No findings to suspect brain mass. D WI is negative for acute CVA. Midline structures are normally formed. Mastoid air cells and paranasal sinuses are clear. IMPRESSION: Negative for acute CVA or other acute intracranial process.
--- NOTE | 2023-10-23 17:12 | P.HP ---
Certification for Inpatient Patient admitted to: Observation With expected LOS: <2 Midnights Patient will require the following post-hospital care: None Practitioner: I am a practitioner with admitting privileges, knowledge of patient current condition, hospital course, and medical plan of care. Services: Services provided to patient in accordance with Admission requirements found in Title 42 Section 412.3 of the Code of Federal Regulations Patient History Date of Service: 10/23/23 Reason for admission: Hypoglycemia History of Present Illness: 53-year-old female with history of gcf-mowtimz-yokoxabmh diabetes, anxiety/depression/ADHD presents the emergency department with chief complaint of confusion, slurred speech, near syncope. She reports she does not remember many of the events but she was at work and one of her coworkers says that she was not able to communicate effectively verbally and appeared to be losing consciousness. They thought her blood sugar may be low so they offered her about her finger which she does remember but she declined. EMS was called and upon arrival patient's blood sugar was in the 60s. She was given 15 g of oral glucose and her blood sugar improved. Her mental status has improved as well. NIH course currently 0. She was evaluated in the emergency department her labs were significant for a creatinine of 1.55 potassium 3.2 CTA of the neck showed about 70% left carotid bulb stenosis, CT head without contrast showed 11 mm low-density area in the right internal capsule/basal ganglia consistent with infarction. Subsequent MRI was negative for acute findings. Discussed further with neurology who believed that the findings are likley related to old/previous CVA but nothing acute. ED provider wishes to admit patient under observation for hypoglycemia, AMS Allergies No Known Drug Allergies Allergy (Verified 08/16/15 11:19) Unknown Home Medications: Bupropion *Xl* [Wellbutrin XL*] 150 mg PO DAILY 03/07/12 Citalopram [Celexa*] 40 mg PO DAILY 03/07/12 Glimepiride 2 mg PO DAILY 03/07/12 Telmisartan 80 mg PO DAILY 03/15/15 - Past Medical/Surgical History Diabetic: Yes -: Knu-sybbmka-qluyqregs diabetes -: Anxiety/depression -: ADHD -: Occipital neuralgia -: Appendectomy -: Cholecystectomy -: Tubal ligation -: Favian hoskins Psychosocial/ Personal History: Patient lives at home with her family - Social History Smoking Status: Never smoker Alcohol use: Yes CD- Drugs: No Caffeine use: Yes Place of Residence: Home Review of Systems 10-point ROS is otherwise unremarkable Neurological: Change in Speech, Confusion, As per HPI Physical Examination - Physical Exam General: Alert, In no apparent distress, Oriented x3 HEENT: Atraumatic, PERRLA, Mucous membr. moist/pink, EOMI, Sclerae nonicteric Neck: Supple, 2+ carotid pulse no bruit, No LAD, Without JVD or thyroid abnormality Respiratory: Clear to auscultation bilaterally, Normal air movement Cardiovascular: Regular rate/rhythm, Normal S1 S2 Gastrointestinal: Normal bowel sounds, No tenderness Musculoskeletal: No tenderness Integumentary: No rashes Neurological: Normal gait, Normal speech, Normal strength at 5/5 x4 extr, Normal tone, Sensation intact, Normal affect, Other (NIH score is 0) Lymphatics: No axilla or inguinal lymphadenopathy - Studies Laboratory Data (last 24 hrs) 10/23/23 10/23/23 10/23/23 11:49 11:49 11:49 WBC 7.10 Hgb 11.8 L Hct 36.2 Plt Count 311 PT 11.6 INR 1.04 APTT 31.0 Sodium 136 Potassium 3.2 L BUN 17 Creatinine 1.55 H Glucose 101 Assessment and Plan - Plan Assessment: Diabetes mellitus type 6ozg-[id number]-mqyiqqyen with hypoglycemia CT head showing 11 mm right internal capsule/basal ganglia infarct/MRI negative for acute CVA Left internal carotid stenosis MOE Hypokalemia Anxiety/depression ADD Plan: Diabetes mellitus type 9zhm-gqqawrf-hvzwxjgxn with hypoglycemia Q6h accucheck Takes GLP1/ozempic at home, did not eat breakfast prior to episode Counseled on importance of eating something for breakfast to minimize risk of hypoglycemia CT head showing 11 mm right internal capsule/basal ganglia infarct/MRI negative for acute CVA Left internal carotid stenosis CT head initially concerning for possible CVA/infarct-subsequent MRI negative acute findings Discussed with radiology who believes that she has possible previous nonacute CVA CT neck angio shows 70% left carotid bulb stenosis, carotid ultrasound ordered to further evaluate Started on aspirin, statin Lipid panel in the morning MOE Continue IV fluids overnight, recheck chemistry in the morning Hypokalemia Electrolyte protocol in place Anxiety/depression ADD Continue medications when verified DVT PPX: Lovenox Code status:Full Discharge Plan: Home Plan to discharge in: 24 Hours - Advance Directives Does patient have a Living Will: No Does patient have a Durable POA for Healthcare: No - Code Status/Comfort Care Code Status Assessed: Yes (Full code) Critical Care: No Time Spent Managing Pts Care (In Minutes): 64
[2023-10-23] MEDS ORDERED: ACETAMINOPHEN 325 MG TABLET PO PRN (18:11)
[2023-10-23] MEDS ORDERED: ONDANSETRON 4 MG/2 ML VIAL IV PRN (18:11)
[2023-10-23 18:14] VITALS: O2SAT 98
[2023-10-23 18:33] VITALS: BMI 26.5
[2023-10-23] MEDS: NA CHLORIDE 0.9% 1,000 ML IV SCH (19:38)
[2023-10-23] MEDS: ATORVASTATIN 40 MG TAB PO SCH (19:39)
[2023-10-23] MEDS: ENOXAPARIN 40 MG/0.4 ML SQ SCH (19:39)
[2023-10-24 06:20] LABS: Absolute Eosinophils 0.1 K/uL (0-0.5); Absolute Lymphocytes (CBC) 2.5 K/uL (0.7-4.9); Absolute Monocytes 0.8 K/uL (0.1-1.3); Absolute Neutrophil 3.4 K/uL (1.8-8.0); Basophils % 0.4 % (0-1.3); Eosinophils % 2.1 % (0-4.4); Hematocrit 32.1 % (36.0-45.0); Hemoglobin 10.5 g/dL (12.0-15.0); MCH 29.9 pg (27.0-35.0); MCHC 32.8 g/dL (32.0-36.0); MCV 91.2 fL (80-100); MPV 9.5 fL (7.6-11.3); Monocytes % 11.2 % (3.3-12.3); Neutrophils % 49.3 % (41.7-73.7); Platelets 265 thou/uL (152-406); RBC Red Blood Cell Count 3.52 M/uL (3.86-4.86); Red Cell Distribution Width 13.2 % (12.1-15.2)
[2023-10-24 06:53] LABS: Anion Gap 7.3 mEq/L (5.0-15.0); Potassium 3.3 mEq/L (3.5-5.1); Troponin High Sensitivity 8.5 pg/mL (<58.9)
[2023-10-24 06:54] LABS: Thyroid Stimulating Hormone 3.84 uIU/mL (0.358-3.740)
[2023-10-24] MEDS: ASPIRIN EC 81 MG TAB PO SCH (07:39)
--- NOTE | 2023-10-24 08:41 | P.DS ---
Admission Date: 10/23/23 Discharge Date: 10/25/23 Disposition: ROUTINE DISCHARGE Discharge Condition: GOOD Reason for Admission: Hypoglycemia Consultations: Neurologist Dr. Kennedy Brief History of Present Illness: Belgica Crabtree is a 53-year-old female with a PMH of mxh-dxoaqpf-gkvgblsrq diabetes, anxiety/depression, ADHD, occipital neuralgia who presented to the ED with complaints of confusion and slurred speech. She reports she does not remember many of the events but she was at work and one of her coworkers says that she was not able to communicate effectively verbally and appeared to be losing consciousness. EMS was called and upon arrival patient's blood sugar was in the 60s. She was given 15 g of oral glucose and her blood sugar improved. Her mental status has improved as well. NIH course currently 0. Of note, patient stated she has had word finding difficulty over the past few months. She also reports left sided headache behind L ear which occurs daily, multiple times per day lasting a few seconds which began in December 2022 for which she has been seeing a neurologist as outpatient and was diagnosed with occipital neuralgia. Patient was evaluated in the ED. CTA of the neck showed about 70% left carotid bulb stenosis. CT head without contrast showed 11 mm low-density area in the right internal capsule/basal ganglia consistent with infarction. Subsequent MRI was negative for acute findings. Patient was admitted for suspected hypoglycemia versus suspected TIA. Hospital Course: Problem List Diabetes mellitus type 1hgl-dscpuqg-caqetijac with hypoglycemia CT head showing 11 mm right internal capsule/basal ganglia infarct/MRI negative for acute CVA Left internal carotid stenosis MOE Hypokalemia Anxiety/depression ADD Patient presented with complaints of confusion and slurred speech. EMS was called and upon arrival patient's blood sugar was in the 60s; she was given 15 g of oral glucose and her blood sugar improved. Her mental status has improved as well. NIHSS 0. CTA of the neck showed about 70% left carotid bulb stenosis, CT head without contrast showed 11 mm low-density area in the right internal capsule/basal ganglia consistent with infarction. Subsequent MRI was negative for acute findings. Carotid ultrasound reporting moderate calcified plaque within left proximal internal carotid artery does not result in a hemodynamically significant stenosis. Neurology Dr. Kennedy was consulted who believed that the findings are likely related to old/previous CVA but nothing acute. Patient has had complete resolution of slurred speech since initial episode. Speech is clear and fluent. NIHSS 0. Patient was started on aspirin, Plavix, atorvastatin and folic acid daily. Physical Exam General: Alert, In no apparent distress, Oriented x3 HEENT: Atraumatic, PERRLA, Mucous membr. moist/pink, EOMI, Sclerae nonicteric Neck: Supple, 2+ carotid pulse no bruit. Respiratory: Clear to auscultation bilaterally. Unlabored respirations on room air. Cardiovascular: Regular rate/rhythm, Normal S1 S2. Normal peripheral pulses. Gastrointestinal: Normoactive bowel sounds. Abdomen soft, nontender, nondistended. Musculoskeletal: No tenderness. Moves all extremities. Integumentary: No rashes. Skin warm and dry Neurological: Normal gait, Normal speech, Normal strength at 5/5 x4 extr, Normal tone, Sensation intact, Normal affect, NIH score is 0 Medications Aspirin 81mg PO daily Plavix 75mg PO daily Atorvastatin 40mg PO at bedtime Folic acid 1mg PO daily Continue taking your home medications as previously prescribed. Follow-ups: - Follow-up with your neurologist as outpatient within 2 weeks of discharge. Vital Signs/Physical Exam: Temp Pulse Resp BP Pulse Ox 97.0 F 57 16 125/64 97 10/24/23 07:37 10/24/23 07:37 10/24/23 07:37 10/24/23 07:37 10/24/23 07:37 Laboratory Data at Discharge: WBC 6.90 thou/uL (4.3-10.9) 10/24/23 05:49 Hgb 10.5 g/dL (12.0-15.0) L D 10/24/23 05:49 Hct 32.1 % (36.0-45.0) L 10/24/23 05:49 Plt Count 265 thou/uL (152-406) 10/24/23 05:49 PT 11.6 SECONDS (9.4-12.5) 10/23/23 11:49 INR 1.04 10/23/23 11:49 APTT 31.0 SECONDS (24.3-36.9) 10/23/23 11:49 Sodium 139 mEq/L (136-145) 10/24/23 05:49 Potassium 3.3 mEq/L (3.5-5.1) L 10/24/23 05:49 BUN 15 mg/dL (7-18) 10/24/23 05:49 Creatinine 1.33 mg/dL (0.55-1.02) H 10/24/23 05:49 Glucose 83 mg/dL (74-106) 10/24/23 05:49 Triglycerides 75 mg/dL (<150) 10/24/23 05:49 Cholesterol 156 mg/dL (<200) 10/24/23 05:49 HDL Cholesterol 73 mg/dL (40-60) H 10/24/23 05:49 Cholesterol/HDL Ratio 2.14 10/24/23 05:49 Home Medications: Bupropion *Xl* [Wellbutrin XL*] 150 mg PO DAILY 03/07/12 Citalopram [Celexa*] 40 mg PO DAILY 03/07/12 Dextroamphetamine/Amphetamine [Adderall 20 mg Tablet] 20 mg PO DAILY 10/23/23 Gabapentin 300 mg PO BID 10/23/23 Semaglutide [Ozempic] 1 mg SQ EVERY 7TH DAY 10/23/23 Atorvastatin Calcium [Lipitor] 40 mg PO BEDTIME #30 tab 10/24/23 Clopidogrel Bisulfate [Plavix] 75 mg PO DAILY #30 tab 10/24/23 Folic Acid 1 mg PO DAILY 30 Days #30 tab 10/24/23 New Medications: Folic Acid 1 mg PO DAILY 30 Days #30 tab Atorvastatin Calcium [Lipitor] 40 mg PO BEDTIME #30 tab Clopidogrel Bisulfate [Plavix] 75 mg PO DAILY #30 tab Physician Discharge Instructions: Problem List Diabetes mellitus type [id number]-jczzobq-qrnawqmqu with hypoglycemia CT head showing 11 mm right internal capsule/basal ganglia infarct/MRI negative for acute CVA Left internal carotid stenosis MOE Hypokalemia Anxiety/depression ADD Patient presented with complaints of confusion and slurred speech. EMS was called and upon arrival patient's blood sugar was in the 60s; she was given 15 g of oral glucose and her blood sugar improved. Her mental status has improved as well. NIHSS 0. CTA of the neck showed about 70% left carotid bulb stenosis, CT head without contrast showed 11 mm low-density area in the right internal capsule/basal ganglia consistent with infarction. Subsequent MRI was negative for acute findings. Carotid ultrasound reporting moderate calcified plaque within left proximal internal carotid artery does not result in a hemodynamically significant stenosis. Neurology Dr. [place] was consulted who believed that the findings are likely related to old/previous CVA but nothing acute. Patient has had complete resolution of slurred speech since initial episode. Speech is clear and fluent. NIHSS 0. Patient was started on aspirin, Plavix, atorvastatin and folic acid daily. Physical Exam General: Alert, In no apparent distress, Oriented x3 HEENT: Atraumatic, PERRLA, Mucous membr. moist/pink, EOMI, Sclerae nonicteric Neck: Supple, 2+ carotid pulse no bruit. Respiratory: Clear to auscultation bilaterally. Unlabored respirations on room air. Cardiovascular: Regular rate/rhythm, Normal S1 S2. Normal peripheral pulses. Gastrointestinal: Normoactive bowel sounds. Abdomen soft, nontender, nondistended. Musculoskeletal: No tenderness. Moves all extremities. Integumentary: No rashes. Skin warm and dry Neurological: Normal gait, Normal speech, Normal strength at 5/5 x4 extr, Normal tone, Sensation intact, Normal affect, NIH score is 0 Medications Aspirin 81mg PO daily Plavix 75mg PO daily Atorvastatin 40mg PO at bedtime Folic acid 1mg PO daily Continue taking your home medications as previously prescribed. Follow-ups: - Follow-up with your neurologist as outpatient within 2 weeks of discharge. Diet: ADA Activity: Ad avila Followup: NONE,NONE [Primary Care Provider] -
--- NOTE | 2023-10-24 09:28 | RAD REPORT ---
EXAM DESCRIPTION: USCarotid Artery Bilateral10/24/2023 5:55 am CLINICAL HISTORY: aphasia COMPARISON: CTA October 23, 2019 FINDINGS: The velocity of the right internal carotid artery equals 78 cm/sec. The right ICA/CCA rati o normal The velocity of the left internal carotid artery equals 71 cm/sec. The left ICA/CCA ratio normal Moderate calcified plaque is present within left proximal internal carotid artery No additional plaque noted within common carotid, internal carotid and external carotid arteries bila terally The vertebral arteries demonstrate antegrade flow NASCET criteria used. Mild 0-49% stenosis Moderate 50-69% stenosis Severe 70-99% stenosis IMPRESSION: Moderate calcified plaque within left proximal internal carotid artery does not result i n a hemodynamically significant stenosis
[2023-10-24 12:04] VITALS: BP 127/66; TEMP 97.2
--- NOTE | 2023-10-24 14:00 | EKG ---
Test Date: 2023-10-23 Test Time: 11:48:41 [employer] Member: RAJWINDER MEASUREMENT RESULTS: Intervals: Rate: 99 KS: 156 QRSD: 94 QT: 382 QTc: 490 [place]: P: 46 KS: 156 QRS: 81 T: 46 INTERPRETIVE STATEMENTS: Normal sinus rhythm Prolonged QT Abnormal ECG Compared to ECG 03/19/2008 00:33:47 Prolonged QT interval now present Sinus tachycardia no longer present Electronically Signed On 10-24-23 13:59:32 CDT by Constantino Clayton
== END 2023-10-24 14:57 | disposition home or self-care (01) ==
LOC: ER 11:23 → ERHOLD 16:08 → 4TH 17:32
PROVIDERS: ADMIT Hospitalist; ATTEND Hospitalist
DX: E11.649 Type 2 diabetes mellitus with hypoglycemia without coma (principal); N17.9 Acute kidney failure, unspecified; I65.22 Occlusion and stenosis of left carotid artery; E87.6 Hypokalemia; F41.9 Anxiety disorder, unspecified; F32.A Depression, unspecified; F90.9 Attention-deficit hyperactivity disorder, unspecified type; R41.0 Disorientation, unspecified; R55 Syncope and collapse; R47.81 Slurred speech
CPT/HCPCS: 93005; 85025 ×2; 80048 ×2; 36415; 85610; 80061; 82947; 85730; 84443; 84484 ×3; 84439; 70450; 70496; 70498; 71045; 93880; 70551; 99285; Q9967; J1650 ×2; J7030 ×2; G0378

== ENCOUNTER 2023-10-29 10:42 | Emergency (ER) | payer BC ==
--- OUTSIDE RECORDS SUMMARY | 2023-10-29 10:49 | XMS REPORT | Continuity of Care Document ---
Author Name Unknown Address [address] [facility] [address] [place] [address] [facility] Address [address] [facility] 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 Name Role Phone Nicole Carter MD Primary Care Physician [phone] KAUSHIK CHE Attending Clinician Unavailable GALINDO FUENTES Attending Clinician Unavail able GALINDO FUENTES Attending Clinician Unavail able Nicole Carter MD Attending Clinician + [phone] ANTHONY BRAVO Attending Clinician UnavailNicole Ellis MD Attending Clinician + [phone] Anthony Bravo MD Attending Clinician [phone] Lab, Ang - Armen Attending Clinician Unavailable NICOLE CARTER Attending Clinician Ronit Bermudez MAMay Attending Clinician UnavailGalindo Oconnor MD Attending Clinician [phone] Edgardo Barr Attending Clinician [phone] Unknown, Attending Attending Clinician Unavailab EDGARDO Barrow Attending Clinician Unavailable ZENY DUMONT Attending Clinician Unavailable Zeny Dumont MD Attending Clinician [phone] WENDY SCHREIBER Attending Clinician Unavailable Wendy Schreiber MD Attending Clinician [phone] Lili García Attending Clinician [phone] Doctor Unassigned, [place] Attending Clinician Shalini prabhuRosa Franco LVN Attending Clinician Ronit uribe Team, [facility] Maintenance Attending Tina winston Unavailable Lab, Adc Fam Pob I Attending Clinician Unavailab le Provider, [facility] Attending Clinician Un available Isaac Talbot Attending Clinician [phone] ISAAC PICKETT Attending Clinician Unavailable CHRISTIAN GUTIERREZ Attending Clinician Unavail able Christian Gutierrez DO Attending Clinician [phone] 2, [facility] Attending Clinician Unavailable DOC ANGELES M.D., Sophie BLOUNT Attendi ng Clinician Unavailable WENDY SCHREIBER Admitting Clinician Unavailable GALINDO FUENTES Admitting Clinician Unavail able DOC ANGELES M.D., DOC Admitting Clin ician Unavailable Payers Payer Name Policy Type Policy Number Effective Date Expirati on Date Source [employer] OPEN ACCESS/OPEN ACCESS PLUS [id number] 2006 00:00:[address] [facility] - [facility] STATE [id number] 2023 00:00:00 Problems Condition Name Condition Details Condition Category Status Onset Date Resolution Date Last Treatment Date Treating Clinician Comments Source Chronic head pain Chronic head pain Disease Active 10-24 00:00: 00 [facility] Anosmia Anosmia Disease Active 2020-02 00:00: 00 [facility] Chronic pansinusit is Chronic pansinusit is Disease Active 2020-02 00:00: 00 [facility] Nasal septal perforatio n Nasal septal perforatio n Disease Active 2020-02 00:00: 00 [facility] Type 2 diabetes mellitus without complicati on Type 2 diabetes mellitus without complicati on Disease Active 2014-02 00:00: 00 [facility] Essential hypertensi on Essential hypertensi on Disease Active 2014-02 00:00: 00 [facility] Obesity Obesity Disease Active 2014-02 00:00: 00 [facility] Depression Depression Disease Active 2014-02 00:00: 00 [facility] No known active problems No known active problems Disease [facility] Allergies, Adverse Reactions, Alerts Allergy Name Allergy Type Status Severity Reaction(s) Onset Date Inactive Date Treating Clinician Comments Source CHAPSTJV Kiran LIP BALM DRUG Active Rash 2020-02 00:00: 00 [facility] Chapstic k Lip [place] Propensi ty to adverse reaction s Active Rash 2020-02 00:00: 00 [facility] Social History Social Habit Start Date Stop Date Quantity Comments Source [facility] History SDOH Alcohol Frequency [facility] History SDOH Alcohol Std Drinks [facility] History SDOH Alcohol Binge [facility] Alcoholic beverage intake 2023-08-20 00:00:00 2023-08-20 00:00:00 .14 /d [facility] Alcohol intake 2023-06-18 00:00:00 2023-06-18 00:00:00 .14 /d [facility] Tobacco use and exposure 2023-03-30 00:00:00 2023-03-30 00:00:00 Smokeless tobacco non-user [facility] History of Social function 2023-03-30 00:00:00 2023-03-30 00:00:00 [facility] Exposure to SARS-CoV-2 (event) 2022-06-22 00:00:00 2022-07-02 09:02:00 Not sure [facility] Alcohol Comment 2015-01-23 00:00:00 2015-01-23 00:00:00 occ [facility] Sex assigned at 1970 00:00:00 1970 00:00:00 [facility] Smoking Status Start Date Stop Date Source Never smoked tobacco [facility] Medications Ordered Medication Name Filled Medication Name Start Date Stop Date Current Medication? Ordering Clinician Indication Dosage Frequency Signature (SIG) Comments Components Source amphetamine -dextroamph etamine (ADDERALL XR) 20 mg 24 hr capsule 8-21 00:00: 00 Yes [id number] 20mg Take 1 capsule by mouth every morning. [facility] lidocaine 1% (PF) (XYLOCAINE) injection 10 mL 08-18 20:30: 00 08-18 19:28 :00 No [id number] 10mL 10 mL, Subcutaneo us, ONCE, 1 dose, On Thu08/19/23 at 1530, Routine [facility] sodium bicarbonate 1 mEq/mL (8.4 %) injection 4 mL 08-18 20:30: 00 08-18 19:30 :00 No [id number] 4mL 4 mL, Infiltrati on, ONCE, 1 dose, On Thu08/19/23 at 1530, Routine [facility] bupivacaine (preserv free) (SENSORCAIN E MPF) 0.25 % (2.5 mg/mL) injection 4 mL 08-18 20:15: 00 08-18 19:31 :00 No [id number] 4mL 4 mL, Infiltrati on, ONCE, 1 dose, On Thu08/19/23 at 1515, Routine [facility] dexamethaso ne (DECADRON) injection 10 mg 08-18 20:15: 00 08-18 19:31 :00 No [id number] 10mg 10 mg, Infiltrati on, ONCE, 1 dose, On Thu08/19/23 at 1515, Routine [facility] amphetamine -dextroamph etamine (ADDERALL XR) 20 mg 24 hr capsule 08-17 00:00: 00 10-13 00:00 :00 No [id number] 20mg Take 1 capsule by mouth every morning. [facility] gabapentin 300 mg capsule 5-20 00:00: 00 Yes [id number] 300mg Take 1 capsule by mouth in the morning and 1 capsule in the evening. [facility] amphetamine -dextroamph etamine (ADDERALL XR) 20 mg 24 hr capsule 5-13 00:00: 08-17 00:00 :00 No [id number] 20mg Take 1 capsule by mouth every morning. [facility] semaglutide (OZEMPIC) 1 mg/dose (4 mg/3 mL) PnIj 06-17 00:00: 00 Yes [id number] 1mg inject 1 mg under the skin weekly. [facility] citalopram 40 mg tablet 06-17 00:00: 00 Yes [id number] 60mg Take 1.5 tablets by mouth in the morning. [facility] zolpidem 10 mg tablet 06-17 00:00: 00 Yes [id number] 10mg Take 1 tablet by mouth at bedtime as needed for Insomnia. [facility] amphetamine -dextroamph etamine (ADDERALL XR) 20 mg 24 hr capsule 06-07 00:00: 00 07-05 00:00 :00 No [id number] 20mg Take 1 capsule by mouth every morning. [facility] hydroCHLORO thiazide 25 mg tablet 05-24 00:00: 00 Yes [id number] 25mg TAKE 1 TABLET BY MOUTH EVERY DAY IN THE MORNING [facility] amphetamine -dextroamph etamine (ADDERALL XR) 20 mg 24 hr capsule 04-29 00:00: 00 06-07 00:00 :00 No [id number] 20mg Take 1 capsule by mouth every morning. [facility] iopamidol (ISOVUE 370-500 mL) injection 90 mL 04-10 19:00: 00 04-10 19:12 :00 No [id number] 90mL 90 mL, Intravenou s, ONCE, 1 dose, On Thu04/10/23 at 1315, Routine [facility] semaglutide (OZEMPIC) 1 mg/dose (4 mg/3 mL) PnIj - 00:00: 00 06-17 00:00 :00 No [id number] 1mg inject 1 mg under the skin weekly. [facility] molnupiravi r 200 mg capsule 2-07 00:00: 00 06-10 00:00 :00 No [id number] 800mg Take 4 capsules by mouth every 12 (twelve) hours. [facility] lisdexamfet amine (VYVANSE) 30 mg capsule 1- 00:00: 00 04-29 00:00 :00 No [id number] 30mg Take 1 capsule by mouth every morning. [facility] zolpidem 10 mg tablet 2022-02 1- 00:00: 00 06-17 00:00 :00 No [id number] 10mg Take 1 tablet by mouth at bedtime as needed for Insomnia. [facility] lisdexamfet amine (VYVANSE) 30 mg capsule 2022-02 00:00: 00 02-23 00:00 :00 No [id number] 30mg Take 1 capsule by mouth every morning. [facility] lisdexamfet amine (VYVANSE) 20 mg capsule 2022-02 00:00: 00 01-05 00:00 :00 No [id number] 20mg Take 1 capsule by mouth every morning. [facility] lisdexamfet amine (VYVANSE) 20 mg capsule 2022-02 0- 00:00: 00 12-09 00:00 :00 No [id number] 20mg Take 1 capsule by mouth every morning. [facility] hydroCHLORO thiazide 25 mg tablet 11-20 00:00: 00 05-24 00:00 :00 No [id number] 25mg TAKE 1 TABLET BY MOUTH EVERY DAY IN THE MORNING [facility] semaglutide (OZEMPIC) 0.25 mg or 0.5 mg (2 mg/3 mL) PnIj 11-20 00:00: 00 04-08 00:00 :00 No [id number] INJECT 0.5 MG UNDER THE SKIN WEEKLY [facility] Nitrofurant oin&Nit. Macrocryst 100 mg capsule 10-10 00:00: 00 10-16 04:59 :00 No [id number] 100mg Take 1 capsule by mouth in the morning and 1 capsule in the evening. Do all this for [address] [facility] phenazopyri dine 100 mg tablet 8-18 00:00: 00 10-13 04:59 :00 No [id number] 200mg Take 2 tablets by mouth in the morning and 2 tablets at noon and 2 tablets in the evening. Do all this for [address] [facility] hydroCHLORO thiazide 25 mg tablet 6-26 00:00: 00 11-20 00:00 :00 No [id number] 25mg Take 1 tablet by mouth in the morning. [facility] metformin ER 500 mg 24 hr tablet 12 08:23: 09 06-04 00:00 :00 No 500mg Take 500 mg by mouth 2 (two) times daily. [facility] buPROPion SR (WELLBUTRIN SR) 150 mg SR tablet 12 00:00: 00 Yes [id number] 150mg Take 1 tablet by mouth in the morning and 1 tablet in the evening. [facility] citalopram 40 mg tablet 4-12 00:00: 00 06-17 00:00 :00 No [id number] 60mg Take 1.5 tablets by mouth in the morning. [facility] zolpidem 10 mg tablet -12 00:00: 00 01-09 00:00 :00 No [id number] 10mg Take 1 tablet by mouth at bedtime as needed for Insomnia. [facility] semaglutide (OZEMPIC) 0.25 mg or 0.5 mg(2 mg/1.5 mL) PnIj 4-12 00:00: 00 11-20 00:00 :00 No [id number] .5mg inject 0.5 mg under the skin weekly. [facility] ZOLPIDEM 10 mg tablet 3-20 00:00: 00 06-04 00:00 :00 No [id number] TAKE 1 TABLET BY MOUTH EVERY DAY AT BEDTIME NEEDED FOR INSOMNIA [facility] citalopram 40 mg tablet 2-08 00:00: 00 06-04 00:00 :00 No [id number] 60mg Take 1.5 tablets by mouth in the morning. [facility] RIVASTIGMIN E 4.6 mg/24 hour patch 2021-02 2-20 00:00: 00 06-04 00:00 :00 No [id number] APPLY 1 PATCH TO SKIN EVERY DAY (CALL DR OFFICE FOR FURTHER REFILLS) [facility] zolpidem 10 mg tablet 9-20 00:00: 00 05-12 00:00 :00 No [id number] 10mg Take 1 tablet by mouth at bedtime as needed for Insomnia. [facility] semaglutide (OZEMPIC) 0.25 mg or 0.5 mg(2 mg/1.5 mL) PnIj 7-29 00:00: 00 06-04 00:00 :00 No [id number] .5mg inject 0.5 mg under the skin weekly. .25 mg weekly for 4 weeks then .[address] [facility] cefUROXime 250 mg tablet 7-06 00:00: 00 09-26 00:00 :00 No [id number] 250mg Take 1 tablet by mouth 2 (two) times daily. [facility] RIVASTIGMIN E 4.6 mg/24 hour patch 5-19 00:00: 00 02-11 00:00 :00 No [id number] APPLY 1 PATCH TO SKIN EVERY DAY (CALL DR OFFICE FOR FURTHER REFILLS) [facility] Ferrous Sulfate 134 mg (27 mg iron) Tab 5-11 15:03: 48 07-03 00:00 :00 No Take by mouth 3 (three) times daily. [facility] buPROPion SR (WELLBUTRIN SR) 150 mg SR tablet 0 3-25 00:00: 00 06-04 00:00 :00 No [id number] 150mg Take 1 tablet by mouth 2 (two) times daily. [facility] hydroCHLORO thiazide 25 mg tablet -15 00:00: 00 08-18 00:00 :00 No [id number] 25mg Take 1 tablet by mouth daily. [facility] telmisartan 80 mg tablet -15 00:00: 00 06-04 00:00 :00 No [id number] 80mg Take 1 tablet by mouth daily. [facility] citalopram 40 mg tablet 05-07 00:00: 00 04-02 00:00 :00 No [id number] 60mg Take 1.5 tablets by mouth daily. [facility] zolpidem 10 mg tablet 05-07 00:00: 00 11-11 00:00 :00 No [id number] 10mg Take 1 tablet by mouth at bedtime as needed for Insomnia. [facility] fluticasone (Flonase) 50 MCG/ACT nasal spray 03-15 00:00: 00 03-16 05:59 :00 No [id number] 1{spray } Q.5D Administer 1 spray into each nostril 2 (two) times a day. Shake gently. Before first use, prime pump. After use, clean tip and replace cap. [facility] telmisartan (MIcarDIS) 80 MG tablet 03-08 10:24: 29 Yes [facility] Ferrous Sulfate 134 MG tablet 03-08 10:24: 29 Yes Take by mouth. [facility] FOLIC ACID PO 03-08 10:24: 29 Yes Take by mouth. [facility] predniSONE (Deltasone) 10 MG tablet 03-08 00:00: 00 Yes 75 Take 3 tablets by mouth daily for 3 days then Take 2 tablets by mouth daily for 3 days then Take 1 tablets by mouth daily for 4 days [facility] fluticasone (Flonase) 50 MCG/ACT nasal spray 03-08 00:00: 00 03-09 05:59 :00 No [id number] 1{spray } Q.5D Administer 1 spray into each nostril 2 (two) times a day. Shake gently. Before first use, prime pump. After use, clean tip and replace cap. [facility] diclofenac (Voltaren) 50 MG EC tablet 2020-02 00:00: 00 02-15 05:59 :00 No [id number] 50mg [id number] 3D Take 1 tablet (50 mg total) by mouth 3 (three) times a day if needed (pain). Do not crush, chew, or split. [facility] promethazin e (Phenergan) 12.5 MG tablet 2020-02 00:00: 00 02-22 05:59 :00 No [id number] 12.5mg Q6H Take 1 tablet (12.5 mg total) by mouth every 6 (six) hours if needed for nausea or vomiting for up to 7 days. [facility] amoxicillin -clavulanat e (Augmentin) 500-125 MG tablet 2020-02 00:00: 00 02-22 05:59 :00 No [id number] 500mg Q12H Take 1 tablet (500 mg total) by mouth every 12 (twelve) hours for 7 days. [facility] HYDROcodone -acetaminop hen ([place]) 7.5-325 MG tablet 2020-02 00:00: 00 02-20 05:59 :00 No [id number] 1{tbl} Q6H Take 1 tablet by mouth every 6 (six) hours if needed for severe pain for up to 5 days. [facility] FOLIC ACID PO 2020-02 15:00: 45 Yes Take by mouth. [facility] telmisartan (MIcarDIS) 80 MG tablet 2020-02 15:00: 16 Yes [facility] Ferrous Sulfate 134 MG tablet 2020-02 15:00: 16 Yes Take by mouth. [facility] citalopram (CeleXA) 40 MG tablet 2020-02 00:00: 00 Yes [facility] zolpidem (Ambien) 10 MG tablet 11-01 00:00: 00 Yes 1{tbl} QD Take 1 tablet by mouth at night if needed. [facility] buPROPion SR (WELLBUTRIN SR) 150 mg SR tablet 2019-02 0- 00:00: 00 05-17 00:00 :00 No [id number] 150mg Take 1 tablet by mouth 2 (two) times daily. [facility] metformin ER 500 mg 24 hr tablet 2018-02 13:31: 54 Yes 500mg Take 500 mg by mouth 2 (two) times daily. [facility] glimepiride 2 mg tablet 2018-02 00:00: 00 09-26 00:00 :00 No [id number] 2mg Take 1 tablet by mouth daily. [facility] telmisartan 80 mg tablet 2018-02 00:00: 00 05-07 00:00 :00 No [id number] 80mg Take 1 tablet by mouth daily. [facility] hydroCHLORO thiazide 25 mg tablet 2018-02 00:00: 00 05-07 00:00 :00 No [id number] 25mg Take 1 tablet by mouth daily. [facility] Immunizations Ordered Immunization Name Filled Immunization Name Date Status Comments Source SARS-COV-2 COVID-19 PFIZER VACCINE 2020-06-05 00:00:00 Completed [facility] SARS-COV-2 COVID-19 PFIZER VACCINE 2020-06-05 00:00:00 Completed [facility] SARS-COV-2 COVID-19 PFIZER VACCINE 2020-06-05 00:00:00 Completed [facility] SARS-COV-2 COVID-19 PFIZER VACCINE 2020-06-05 00:00:00 Completed [facility] SARS-COV-2 COVID-19 PFIZER VACCINE 2020-06-05 00:00:00 Completed [facility] SARS-COV-2 COVID-19 PFIZER VACCINE 2020-06-05 00:00:00 Completed [facility] SARS-COV-2 COVID-19 PFIZER VACCINE 2020-06-05 00:00:00 Completed [facility] SARS-COV-2 COVID-19 PFIZER VACCINE 2020-06-05 00:00:00 Completed [facility] SARS-COV-2 COVID-19 PFIZER VACCINE 2020-06-05 00:00:00 Completed [facility] SARS-COV-2 COVID-19 PFIZER VACCINE 2020-06-05 00:00:00 Completed [facility] SARS-COV-2 COVID-19 PFIZER VACCINE 2020-06-05 00:00:00 Completed [facility] SARS-COV-2 COVID-19 PFIZER VACCINE 2020-06-05 00:00:00 Completed [facility] SARS-COV-2 COVID-19 PFIZER VACCINE 2020-06-05 00:00:00 Completed [facility] SARS-COV-2 COVID-19 PFIZER VACCINE 2020-06-05 00:00:00 Completed [facility] SARS-COV-2 COVID-19 PFIZER VACCINE 2020-06-05 00:00:00 Completed [facility] SARS-COV-2 COVID-19 PFIZER VACCINE 2020-06-05 00:00:00 Completed [facility] SARS-COV-2 COVID-19 PFIZER VACCINE 2020-06-05 00:00:00 Completed [facility] SARS-COV-2 COVID-19 PFIZER VACCINE 2020-05-15 00:00:00 Completed [facility] SARS-COV-2 COVID-19 PFIZER VACCINE 2020-05-15 00:00:00 Completed [facility] SARS-COV-2 COVID-19 PFIZER VACCINE 2020-05-15 00:00:00 Completed [facility] SARS-COV-2 COVID-19 PFIZER VACCINE 2020-05-15 00:00:00 Completed [facility] SARS-COV-2 COVID-19 PFIZER VACCINE 2020-05-15 00:00:00 Completed [facility] SARS-COV-2 COVID-19 PFIZER VACCINE 2020-05-15 00:00:00 Completed [facility] SARS-COV-2 COVID-19 PFIZER VACCINE 2020-05-15 00:00:00 Completed [facility] SARS-COV-2 COVID-19 PFIZER VACCINE 2020-05-15 00:00:00 Completed [facility] SARS-COV-2 COVID-19 PFIZER VACCINE 2020-05-15 00:00:00 Completed [facility] SARS-COV-2 COVID-19 PFIZER VACCINE 2020-05-15 00:00:00 Completed [facility] SARS-COV-2 COVID-19 PFIZER VACCINE 2020-05-15 00:00:00 Completed [facility] SARS-COV-2 COVID-19 PFIZER VACCINE 2020-05-15 00:00:00 Completed [facility] SARS-COV-2 COVID-19 PFIZER VACCINE 2020-05-15 00:00:00 Completed [facility] SARS-COV-2 COVID-19 PFIZER VACCINE 2020-05-15 00:00:00 Completed [facility] SARS-COV-2 COVID-19 PFIZER VACCINE 2020-05-15 00:00:00 Completed [facility] SARS-COV-2 COVID-19 PFIZER VACCINE 2020-05-15 00:00:00 Completed [facility] SARS-COV-2 COVID-19 PFIZER VACCINE 2020-05-15 00:00:00 Completed [facility] SARS-COV-2 COVID-19 PFIZER VACCINE Unknown Completed [facility] SARS-COV-2 COVID-19 PFIZER VACCINE Unknown Completed [facility] SARS-COV-2 COVID-19 PFIZER VACCINE Unknown Completed [facility] SARS-COV-2 COVID-19 PFIZER VACCINE Unknown Completed [facility] SARS-COV-2 COVID-19 PFIZER VACCINE Unknown Completed [facility] SARS-COV-2 COVID-19 PFIZER VACCINE Unknown Completed [facility] SARS-COV-2 COVID-19 PFIZER VACCINE Unknown Completed [facility] SARS-COV-2 COVID-19 PFIZER VACCINE Unknown Completed [facility] SARS-COV-2 COVID-19 PFIZER VACCINE Unknown Completed [facility] SARS-COV-2 COVID-19 PFIZER VACCINE Unknown Completed [facility] SARS-COV-2 COVID-19 PFIZER VACCINE Unknown Completed [facility] SARS-COV-2 COVID-19 PFIZER VACCINE Unknown Completed [facility] SARS-COV-2 COVID-19 PFIZER VACCINE Unknown Completed [facility] SARS-COV-2 COVID-19 PFIZER VACCINE Unknown Completed [facility] SARS-COV-2 COVID-19 PFIZER VACCINE Unknown Completed [facility] SARS-COV-2 COVID-19 PFIZER VACCINE Unknown Completed [facility] SARS-COV-2 COVID-19 PFIZER VACCINE Unknown Completed [facility] SARS-COV-2 COVID-19 PFIZER VACCINE Unknown Completed [facility] SARS-COV-2 COVID-19 PFIZER VACCINE Unknown Completed [facility] SARS-COV-2 COVID-19 PFIZER VACCINE Unknown Completed [facility] SARS-COV-2 COVID-19 PFIZER VACCINE Unknown Completed [facility] SARS-COV-2 COVID-19 PFIZER VACCINE Unknown Completed [facility] SARS-COV-2 COVID-19 PFIZER VACCINE Unknown Completed [facility] SARS-COV-2 COVID-19 PFIZER VACCINE Unknown Completed [facility] SARS-COV-2 COVID-19 PFIZER VACCINE Unknown Completed [facility] SARS-COV-2 COVID-19 PFIZER VACCINE Unknown Completed [facility] SARS-COV-2 COVID-19 PFIZER VACCINE Unknown Completed [facility] SARS-COV-2 COVID-19 PFIZER VACCINE Unknown Completed [facility] SARS-COV-2 COVID-19 PFIZER VACCINE Unknown Completed [facility] SARS-COV-2 COVID-19 PFIZER VACCINE Unknown Completed [facility] SARS-COV-2 COVID-19 PFIZER VACCINE Unknown Completed [facility] SARS-COV-2 COVID-19 PFIZER VACCINE Unknown Completed [facility] SARS-COV-2 COVID-19 PFIZER VACCINE Unknown Completed [facility] SARS-COV-2 COVID-19 PFIZER VACCINE Unknown Completed [facility] SARS-COV-2 COVID-19 PFIZER VACCINE Unknown Completed [facility] SARS-COV-2 COVID-19 PFIZER VACCINE Unknown Completed [facility] SARS-COV-2 COVID-19 PFIZER VACCINE Unknown Completed [facility] SARS-COV-2 COVID-19 PFIZER VACCINE Unknown Completed [facility] SARS-COV-2 COVID-19 PFIZER VACCINE Unknown Completed [facility] SARS-COV-2 COVID-19 PFIZER VACCINE Unknown Completed [facility] SARS-COV-2 COVID-19 PFIZER VACCINE Unknown Completed [facility] SARS-COV-2 COVID-19 PFIZER VACCINE Unknown Completed [facility] SARS-COV-2 COVID-19 PFIZER VACCINE Unknown Completed [facility] SARS-COV-2 COVID-19 PFIZER VACCINE Unknown Completed [facility] SARS-COV-2 COVID-19 PFIZER VACCINE Unknown Completed [facility] SARS-COV-2 COVID-19 PFIZER VACCINE Unknown Completed [facility] SARS-COV-2 COVID-19 PFIZER VACCINE Unknown Completed [facility] SARS-COV-2 COVID-19 PFIZER VACCINE Unknown Completed [facility] SARS-COV-2 COVID-19 PFIZER VACCINE Unknown Completed [facility] SARS-COV-2 COVID-19 PFIZER VACCINE Unknown Completed [facility] SARS-COV-2 COVID-19 PFIZER VACCINE Unknown Completed [facility] SARS-COV-2 COVID-19 PFIZER VACCINE Unknown Completed [facility] SARS-COV-2 COVID-19 PFIZER VACCINE Unknown Completed [facility] SARS-COV-2 COVID-19 PFIZER VACCINE Unknown Completed [facility] SARS-COV-2 COVID-19 PFIZER VACCINE Unknown Completed [facility] SARS-COV-2 COVID-19 PFIZER VACCINE Unknown Completed [facility] SARS-COV-2 COVID-19 PFIZER VACCINE Unknown Completed [facility] SARS-COV-2 COVID-19 PFIZER VACCINE Unknown Completed [facility] SARS-COV-2 COVID-19 PFIZER VACCINE Unknown Completed [facility] SARS-COV-2 COVID-19 PFIZER VACCINE Unknown Completed [facility] SARS-COV-2 COVID-19 PFIZER VACCINE Unknown Completed [facility] SARS-COV-2 COVID-19 PFIZER VACCINE Unknown Completed [facility] SARS-COV-2 COVID-19 PFIZER VACCINE Unknown Completed [facility] SARS-COV-2 COVID-19 PFIZER VACCINE Unknown Completed [facility] SARS-COV-2 COVID-19 PFIZER VACCINE Unknown Completed [facility] SARS-COV-2 COVID-19 PFIZER VACCINE Unknown Completed [facility] SARS-COV-2 COVID-19 PFIZER VACCINE Unknown Completed [facility] SARS-COV-2 COVID-19 PFIZER VACCINE Unknown Completed [facility] SARS-COV-2 COVID-19 PFIZER VACCINE Unknown Completed [facility] SARS-COV-2 COVID-19 PFIZER VACCINE Unknown Completed [facility] SARS-COV-2 COVID-19 PFIZER VACCINE Unknown Completed [facility] SARS-COV-2 COVID-19 PFIZER VACCINE Unknown Completed [facility] SARS-COV-2 COVID-19 PFIZER VACCINE Unknown Completed [facility] SARS-COV-2 COVID-19 PFIZER VACCINE Unknown Completed [facility] SARS-COV-2 COVID-19 PFIZER VACCINE Unknown Completed [facility] SARS-COV-2 COVID-19 PFIZER VACCINE Unknown Completed [facility] SARS-COV-2 COVID-19 PFIZER VACCINE Unknown Completed [facility] SARS-COV-2 COVID-19 PFIZER VACCINE Unknown Completed [facility] SARS-COV-2 COVID-19 PFIZER VACCINE Unknown Completed [facility] SARS-COV-2 COVID-19 PFIZER VACCINE Unknown Completed [facility] SARS-COV-2 COVID-19 PFIZER VACCINE Unknown Completed [facility] SARS-COV-2 COVID-19 PFIZER VACCINE Unknown Completed [facility] Vital Signs Vital Name Observation Time Observation Value Comments S ource Systolic blood pressure 2023-08-19 19:09:00 144 mm[Hg] [facility] Diastolic blood pressure 2023-08-19 19:09:00 80 mm[Hg] [facility] Heart rate 2023-08-19 19:09:00 80 /min [facility] Body temperature 2023-08-19 19:09:00 36.72 Kya [facility] Respiratory rate 2023-08-19 19:09:00 18 /min [facility] Body height 2023-08-19 19:09:00 160 cm [facility] Body weight 2023-08-19 19:09:00 71.668 kg [facility] BMI 2023-08-19 19:09:00 27.99 kg/m2 [facility] Oxygen saturation in Arterial blood by Pulse oximetry 2023-08-19 19:09:00 99 /min [facility] Systolic blood pressure 2023-07-13 19:24:00 138 mm[Hg] [facility] Diastolic blood pressure 2023-07-13 19:24:00 79 mm[Hg] [facility] Heart rate 2023-07-13 19:22:00 73 /min [facility] Body height 2023-07-13 19:22:00 160 cm [facility] Body weight 2023-07-13 19:22:00 76.567 kg [facility] BMI 2023-07-13 19:22:00 29.90 kg/m2 [facility] Oxygen saturation in Arterial blood by Pulse oximetry 2023-07-13 19:22:00 96 /min [facility] Systolic blood pressure 2023-06-18 15:20:00 127 mm[Hg] [facility] Diastolic blood pressure 2023-06-18 15:20:00 80 mm[Hg] [facility] Heart rate 2023-06-18 15:20:00 73 /min [facility] Body temperature 2023-06-18 15:20:00 36.78 Kya [facility] Body height 2023-06-18 15:20:00 160 cm [facility] Body weight 2023-06-18 15:20:00 77.111 kg [facility] BMI 2023-06-18 15:20:00 30.11 kg/m2 [facility] Systolic blood pressure 2023-05-29 20:18:00 147 mm[Hg] Pt in severe pain, no symptoms [facility] Diastolic blood pressure 2023-05-29 20:18:00 77 mm[Hg] Pt in severe pain, no symptoms [facility] Heart rate 2023-05-29 20:18:00 99 /min [facility] Respiratory rate 2023-05-29 20:18:00 12 /min [facility] Body height 2023-05-29 20:18:00 160 cm [facility] Body weight 2023-05-29 20:18:00 78.472 kg [facility] BMI 2023-05-29 20:18:00 30.65 kg/m2 [facility] Oxygen saturation in Arterial blood by Pulse oximetry 2023-05-29 20:18:00 98 /min [facility] Systolic blood pressure 2023-04-27 18:35:00 128 mm[Hg] [facility] Diastolic blood pressure 2023-04-27 18:35:00 78 mm[Hg] [facility] Heart rate 2023-04-27 18:35:00 63 /min [facility] Body height 2023-04-27 18:35:00 160 cm [facility] Body weight 2023-04-27 18:35:00 81.33 kg [facility] BMI 2023-04-27 18:35:00 31.76 kg/m2 [facility] Oxygen saturation in Arterial blood by Pulse oximetry 2023-04-27 18:35:00 97 /min [facility] Systolic blood pressure 2023-04-01 17:36:00 111 mm[Hg] [facility] Diastolic blood pressure 2023-04-01 17:36:00 73 mm[Hg] [facility] Heart rate 2023-04-01 17:36:00 93 /min [facility] Body temperature 2023-04-01 17:36:00 37.17 Kya [facility] Respiratory rate 2023-04-01 17:36:00 20 /min [facility] Body height 2023-04-01 17:36:00 160 cm [facility] Body weight 2023-04-01 17:36:00 78.971 kg [facility] BMI 2023-04-01 17:36:00 30.84 kg/m2 [facility] Oxygen saturation in Arterial blood by Pulse oximetry 2023-04-01 17:36:00 99 /min [facility] Systolic blood pressure 2023-03-30 18:49:00 151 mm[Hg] [facility] Diastolic blood pressure 2023-03-30 18:49:00 90 mm[Hg] [facility] Heart rate 2023-03-30 18:41:00 101 /min [facility] Respiratory rate 2023-03-30 18:41:00 18 /min [facility] Body height 2023-03-30 18:41:00 160 cm [facility] Body weight 2023-03-30 18:41:00 82.101 kg [facility] BMI 2023-03-30 18:41:00 32.06 kg/m2 [facility] Oxygen saturation in Arterial blood by Pulse oximetry 2023-03-30 18:41:00 97 /min [facility] Systolic blood pressure 2023-01-05 20:51:00 124 mm[Hg] [facility] Diastolic blood pressure 2023-01-05 20:51:00 63 mm[Hg] [facility] Heart rate 2023-01-05 20:51:00 62 /min [facility] Body height 2023-01-05 20:51:00 160 cm [facility] Body weight 2023-01-05 20:51:00 79.833 kg [facility] BMI 2023-01-05 20:51:00 31.18 kg/m2 [facility] Systolic blood pressure 2022-12-02 20:34:00 163 mm[Hg] [facility] Diastolic blood pressure 2022-12-02 20:34:00 86 mm[Hg] [facility] Heart rate 2022-12-02 20:33:00 59 /min [facility] Body height 2022-12-02 20:33:00 160 cm [facility] Body weight 2022-12-02 20:33:00 79.379 kg [facility] BMI 2022-12-02 20:33:00 31.00 kg/m2 [facility] Systolic blood pressure 2022-10-10 23:29:00 124 mm[Hg] [facility] Diastolic blood pressure 2022-10-10 23:29:00 83 mm[Hg] [facility] Heart rate 2022-10-10 23:29:00 75 /min [facility] Body temperature 2022-10-10 23:29:00 36.22 Kya [facility] Respiratory rate 2022-10-10 23:29:00 17 /min [facility] Body weight 2022-10-10 23:29:00 76.885 kg [facility] BMI 2022-10-10 23:29:00 30.03 kg/m2 [facility] Systolic blood pressure 2022-07-02 14:56:00 170 mm[Hg] [facility] Diastolic blood pressure 2022-07-02 14:56:00 95 mm[Hg] [facility] Heart rate 2022-07-02 14:05:00 77 /min [facility] Body temperature 2022-07-02 14:05:00 36.78 Kya [facility] Respiratory rate 2022-07-02 14:05:00 17 /min [facility] Body height 2022-07-02 14:05:00 160 cm [facility] Body weight 2022-07-02 14:05:00 80.287 kg [facility] BMI 2022-07-02 14:05:00 31.35 kg/m2 [facility] Systolic blood pressure 2022-06-04 13:22:00 154 mm[Hg] [facility] Diastolic blood pressure 2022-06-04 13:22:00 82 mm[Hg] [facility] Heart rate 2022-06-04 13:21:00 58 /min [facility] Body height 2022-06-04 13:21:00 160 cm [facility] Body weight 2022-06-04 13:21:00 80.287 kg [facility] BMI 2022-06-04 13:21:00 31.35 kg/m2 [facility] Systolic blood pressure 2021-12-24 20:38:00 128 mm[Hg] [facility] Diastolic blood pressure 2021-12-24 20:38:00 82 mm[Hg] [facility] Heart rate 2021-12-24 20:38:00 78 /min [facility] Body height 2021-12-24 20:38:00 160 cm [facility] Body weight 2021-12-24 20:38:00 79.379 kg [facility] BMI 2021-12-24 20:38:00 31.00 kg/m2 [facility] Oxygen saturation in Arterial blood by Pulse oximetry 2021-12-24 20:38:00 98 /min [facility] Systolic blood pressure 2021-09-26 14:38:00 138 mm[Hg] [facility] Diastolic blood pressure 2021-09-26 14:38:00 83 mm[Hg] [facility] Heart rate 2021-09-26 14:38:00 67 /min [facility] Body height 2021-09-26 14:38:00 160 cm [facility] Body weight 2021-09-26 14:38:00 82.555 kg [facility] BMI 2021-09-26 14:38:00 32.24 kg/m2 [facility] Body weight 2021-05-21 15:37:00 81.647 kg [facility] BMI 2021-05-21 15:37:00 31.89 kg/m2 [facility] Body height 2021-05-21 15:37:00 160 cm [facility] Body height 2021-03-08 16:24:00 160 cm [facility] Body weight 2021-03-08 16:24:00 81.647 kg [facility] BMI 2021-03-08 16:24:00 31.89 kg/m2 [facility] Body height 2021-02-18 15:56:00 160 cm [facility] Body weight 2021-02-18 15:56:00 79.379 kg [facility] BMI 2021-02-18 15:56:00 31.00 kg/m2 [facility] Procedures Procedure Date / Time Performed Performing Clinicia n Source POCT GLUCOSE (AUTOMATED) 2023-08-19 19:04:00 Anthony Bravo [facility] CT ANGIOGRAM NECK 2023-04-10 19:13:50 Galindo Fuentes [facility] CT ANGIOGRAM HEAD 2023-04-10 19:11:52 Galindo Fuentes [facility] POCT SARS-COV-2 ANTIGEN (BINAX NOW) 2023-04-01 18:01:00 Edgardo Davis [facility] POCT MOLECULAR FLU 2023-04-01 17:52:00 Unknown, Attend [facility] CT SINUS WO CONTRAST 2021-02-05 20:59:14 Chinedu [facility] CT SINUS WO CONTRAST 2021-02-05 20:59:14 Chinedu [facility] Encounters Start Date/Time End Date/Time Encounter Type Admission Type Attending [facility] Care Facility Care Department Encounter ID Source 2021-03-08 11:02:51 Outpatient CHINEDU KAUSHIK [facility] [id number] [facility] 2021-02-04 09:52:32 Outpatient CHINEDU KAUSHIK [facility] [id number] [facility] 2021-01-23 10:46:57 Outpatient CHINEDU KAUSHIK [facility] [id number] [facility] 2023-11-03 13:20:00 2023-11-03 13:20:00 Outpatient GALINDO L[facility]SON [facility] [id number] [facility] 2023-10-14 00:00:00 2023-10-14 10:10:31 Nicole Sanchez [facility] 1.2.840.114 350.1.13.10 4.2.7.2.[id number] [facility] 2023-08-26 00:00:00 2023-09-26 18:18:44 Patient Secure Nicole Christina [facility] 1.2.840.114 350.1.13.10 4.2.7.2.[id number] [facility] 2023-08-20 00:00:00 2023-08-20 08:36:28 [facility] 1.840.114 350.1.13.10 4.2.7.2.[id number] [facility] 2023-08-19 15:00:00 2023-08-19 15:30:00 Office Visit Anthony Bravo [facility] 1.2840.114 350.1.13.10 4.2.7.2.[id number] [facility] 2023-08-19 15:00:00 2023-08-19 15:00:00 Outpatient R ANTHONY BRAVO [facility] [id number] [facility] 2023-08-18 00:00:00 2023-08-18 11:40:04 Seth Carter [facility] 1.2.840.114 350.1.13.10 4.2.7.2.[id number] [facility] 2023-08-14 13:30:00 2023-08-14 13:30:00 Outpatient R ANTHONY BRAVO [facility] [id number] [facility] 2023-08-13 00:00:00 2023-08-13 14:26:26 Telephone Anthony Bravo [facility] 1.2840.114 350.1.13.10 4.2.7.2.[id number] [facility] 2023-07-28 00:00:00 2023-07-28 08:50:42 Telephone Nicole Carter [facility] 1.84.114 350.1.13.10 4.2.7.2.[id number] [facility] 2023-07-13 14:15:00 2023-07-13 15:02:25 Outpatient R ANTHONY BRAVO [facility] [id number] [facility] 2023-07-13 14:15:00 2023-07-13 15:02:25 Office Visit Anthony Bravo [facility] 1..114 350.1.13.10 4.2.7.2.[id number] [facility] 2023-07-06 00:00:00 2023-07-06 15:35:26 Refill Raul [facility] 1.84.114 350.1.13.10 4.2.7.2.[id number] [facility] 2023-06-23 00:00:00 2023-06-23 00:00:00 [facility] 1.2840.114 350.1.13.10 4.2.7.2.[id number] [facility] 2023-06-18 11:00:00 2023-06-18 11:15:00 Program Counselor Visit Lab, Emanuel Ayers Nicole Carter [facility] 1.2840.114 350.1.13.10 4.2.7.2.[id number] [facility] 2023-06-18 10:30:00 2023-06-18 11:00:00 [facility] 1.2840.114 350.1.13.10 4.2.7.2.[id number] [facility] 2023-06-18 10:30:00 2023-06-18 10:32:13 Outpatient R MIKALAHILDANICOLE ABRAH[facility] [id number] [facility] 2023-06-11 00:00:00 2023-06-11 00:00:00 Pre Visit Outreach Kaylynn Bermudez [facility] 1.2840.114 350.1.13.10 4.2.7.2.[id number] [facility] 2023-06-08 00:00:00 2023-06-08 00:00:00 Refill Raul [facility] 1.2840.114 350.1.13.10 4.2.7.2.[id number] [facility] 2023-05-29 15:30:00 2023-05-29 16:01:10 Office Visit Anthony Bravo [facility] 1.2840.114 350.1.13.10 4.2.7.2.[id number] [facility] 2023-05-29 15:30:00 2023-05-29 16:01:10 Outpatient R ANTHONY BRAVO [facility] [id number] [facility] 2023-05-24 00:00:00 2023-05-24 00:00:00 Refill Nicole Carter [facility] DEJAN?[facility] 1..840.114 350.1.13.10 4.2.7.2.[id number] [facility] 2023-05-21 13:45:00 2023-05-21 13:45:00 Outpatient ANTHONY SHAF[facility] [id number] [facility] 2023-05-11 14:30:00 2023-05-11 14:30:00 Outpatient ANTHONY [facility] [id number] [facility] 2023-04-29 00:00:00 2023-04-29 00:00:00 Patient Secure MsNicole Landin [facility] 1.840.114 350.1.13.10 4.2.7.2.[id number] [facility] 2023-04-27 12:40:00 2023-04-27 13:14:20 Outpatient GALINDO LARSON [facility] [id number] [facility] 2023-04-27 12:40:00 2023-04-27 13:14:20 [facility] 1..840.114 350.1.13.10 4.2.7.2.[id number] [facility] 2023-04-27 00:00:00 2023-04-27 00:00:00 Edgardo Shafer [facility] 1..840.114 350.1.13.10 4.2.7.2.[id number] [facility] 2023-04-10 12:32:08 2023-04-10 23:59:00 Hospital Encounter Galindo Fuentes [facility] 1.2.840.114 350.1.13.10 4.2.7.2.[id number] [facility] 2023-04-10 12:31:39 2023-04-10 12:31:39 Outpatient R GALINDO FUENTES [facility] [id number] [facility] 2023-04-10 12:31:39 2023-04-10 12:31:39 Hospital Encounter Galindo Fuentes [facility] 1.2.840.114 350.1.13.10 4.2.7.2.[id number] [facility] 2023-04-08 00:00:00 2023-04-08 00:00:00 Nicole Sanchez [facility] 1.2.840.114 350.1.13.10 4.2.7.2.[id number] [facility] 2023-04-01 11:20:00 2023-04-01 11:40:00 Urgent Care Edgardo Davis Unknown, Attending [facility] 1.2.840.114 350.1.13.10 4.2.7.2.[id number] [facility] 2023-04-01 11:20:00 2023-04-01 11:20:00 Outpatient R EDGARDO DAVIS [facility] [id number] [facility] 2023-03-30 12:40:00 2023-03-30 13:45:19 Outpatient R GALINDO FUENTES [facility] [id number] [facility] 2023-03-30 12:40:00 2023-03-30 13:45:19 [facility] 1.2.840.114 350.1.13.10 4.2.7.2.[id number] [facility] 2023-02-23 00:00:00 2023-02-23 00:00:00 Refill Nicole Carter [facility] DEJAN?[facility] 1.84.114 350.1.13.10 4.2.7.2.[id number] [facility] 2023-01-09 00:00:00 2023-01-09 00:00:00 Refill Nicole Carter [facility] DEJAN?[facility] 1..840.114 350.1.13.10 4.2.7.2.[id number] [facility] 2023-01-05 15:00:00 2023-01-05 15:00:00 Office Visit Nicole Carter [facility] DEJAN?[facility] 1.840.114 350.1.13.10 4.2.7.2.[id number] [facility] 2023-01-05 15:00:00 2023-01-05 14:57:58 Outpatient NICOLE WEISS [facility] [id number] [facility] 2022-12-19 09:20:00 2022-12-19 09:20:00 Outpatient GALINDO LARSON [facility] [id number] [facility] 2022-12-08 00:00:00 2022-12-08 00:00:00 Patient Secure Msg Nicole Carter [facility] 1.2.840.114 350.1.13.10 4.2.7.2.[id number] [facility] 2022-12-02 15:45:00 2022-12-02 16:00:00 Office Visit Raul Nicole [facility] DEJAN?[facility] 1.2840.114 350.1.13.10 4.2.7.2.[id number] [facility] 2022-12-02 15:45:00 2022-12-02 15:45:00 Outpatient R NICOLE CARTER [facility] [id number] [facility] 2022-11-26 00:00:00 2022-11-26 00:00:00 Telephone [facility] 1.2840.114 350.1.13.10 4.2.7.2.[id number] [facility] 2022-11-19 00:00:00 2022-11-19 00:00:00 Refill Raul Nicole [facility] DEJAN?[facility] 1.840.114 350.1.13.10 4.2.7.2.[id number] [facility] 2022-10-10 18:40:00 2022-10-10 19:00:22 Outpatient R ZENY DUMONT [facility] [id number] [facility] 2022-10-10 18:40:00 2022-10-10 19:00:00 Urgent Care Zeny Dumont Unknown, Attending [facility] 1.840.114 350.1.13.10 4.2.7.2.686 [id number] [facility] 2022-10-09 00:00:00 2022-10-09 00:00:00 Patient Secure Msg Raul Nicole [facility] DEJAN?[facility] 1.84.114 350.1.13.10 4.2.7.2.[id number] [facility] 2022-09-11 14:20:49 2022-09-11 23:59:00 Outpatient R WENDY SCHREIBER [facility] [id number] [facility] 2022-09-11 14:20:49 2022-09-11 23:59:00 Hospital Encounter AdWendy dobbins [facility] 1.2840.114 350.1.13.10 4.2.7.2.[id number] [facility] 2022-08-18 00:00:00 2022-08-18 00:00:00 Seth Carter [facility] 1.84.114 350.1.13.10 4.2.7.2.[id number] [facility] 2022-07-02 09:30:00 2022-07-02 09:57:10 Outpatient R JESSICA WENDY [facility] [id number] [facility] 2022-07-02 09:30:00 2022-07-02 09:57:10 Office Visit Wendy Schreiber [facility] 1..114 350.1.13.10 4.2.7.2.[id number] [facility] 2022-06-04 09:00:00 2022-06-04 09:16:22 Program Counselor Visit Lab, Emanuel Carter [facility] 1.84.114 350.1.13.10 4.2.7.2.[id number] [facility] 2022-06-04 08:30:00 2022-06-04 08:32:27 Outpatient NICOLE WEISS [facility] [id number] [facility] 2022-06-04 08:30:00 2022-06-04 08:32:27 Office Visit Nicole Carter [facility] DEJAN?[facility] 1..840.114 350.1.13.10 4.2.7.2.[id number] [facility] 2022-05-12 00:00:00 2022-05-12 00:00:00 Refill Nicole Carter [facility] DEJAN?[facility] 1..840.114 350.1.13.10 4.2.7.2.[id number] [facility] 2022-04-02 00:00:00 2022-04-02 00:00:00 Refill Nicole Carter [facility] DEJAN?[facility] 1..840.114 350.1.13.10 4.2.7.2.[id number] [facility] 2022-02-09 00:00:00 2022-02-09 00:00:00 RefGalindo Turner [facility] DEJAN?[facility] 1..840.114 350.1.13.10 4.2.7.2.[id number] [facility] 2021-12-24 15:40:00 2021-12-24 16:18:05 Outpatient GALINDO LARSON [facility] [id number] [facility] 2021-12-24 15:40:00 2021-12-24 16:18:05 Office Visit Lili Brody Howard [facility] DEJAN?[facility] 1..840.114 350.1.13.10 4.2.7.2.[id number] [facility] 2021-12-24 15:40:00 2021-12-24 15:40:00 Outpatient GALINDO L[facility]SON [facility] [id number] [facility] 2021-12-18 16:30:00 2021-12-18 16:30:00 Outpatient Candace CARTER NICOLE [facility] [id number] [facility] 2021-11-11 00:00:00 2021-11-11 00:00:00 RefNicole Kaur [facility] DEJAN?[facility] 1.2.840.114 350.1.13.10 4.2.7.2.[id number] [facility] 2021-09-26 09:45:00 2021-09-26 09:48:05 Outpatient Candace JADERAISA NICOLE [facility] [id number] [facility] 2021-09-26 09:45:00 2021-09-26 09:48:05 Office Visit Raul Nicole [facility] DEJAN?[facility] 1.2.840.114 350.1.13.10 4.2.7.2.[id number] [facility] 2021-09-20 00:00:00 2021-09-20 00:00:00 Nicole Sanchez [facility] DEJAN?[facility] 1.2.840.114 350.1.13.10 4.2.7.2.[id number] [facility] 2021-08-28 00:00:00 2021-08-28 00:00:00 Patient Secure Msg Nicole Carter [facility] DEJAN?[facility] 1.2.840.114 350.1.13.10 4.2.7.2.[id number] [facility] 2021-08-21 00:00:00 2021-08-21 00:00:00 Orders Only Doctor Unassigned, Muldrow [facility] 1.114 350.1.13.10 4.2.7.2.[id number] [facility] 2021-07-23 00:00:00 2021-07-23 00:00:00 Refill Galindo Fuentes [facility] DEJAN?[facility] 1.114 350.1.13.10 4.2.7.2.[id number] [facility] 2021-07-11 00:00:00 2021-07-11 00:00:00 Refill Galindo Fuentes [facility] 1.114 350.1.13.10 4.2.7.2.[id number] [facility] 2021-07-03 15:00:00 2021-07-03 15:15:00 Office Visit Nicole Carter [facility] DEJAN?[facility] 1.84114 350.1.13.10 4.2.7.2.[id number] [facility] 2021-07-03 15:00:00 2021-07-03 15:00:00 Outpatient R NICOLE CARTER [facility] [id number] [facility] 2021-07-02 00:00:00 2021-07-02 00:00:00 Patient Secure Msg [facility] 1.84.114 350.1.13.10 4.2.7.2.[id number] [facility] 2021-07-02 00:00:00 2021-07-02 00:00:00 Patient Secure Msg Rosa Goodson [facility] DEJAN?[facility] 1.114 350.1.13.10 4.2.7.2.[id number] [facility] 2021-06-18 15:40:00 2021-06-18 16:30:08 Outpatient Candace FUENTES [facility] [id number] [facility] 2021-06-18 15:40:00 2021-06-18 16:30:08 Office Visit Galindo Fuentes [facility] 1..840.114 350.1.13.10 4.2.7.2.[id number] [facility] 2021-06-18 15:40:00 2021-06-18 16:30:08 Outpatient Candace FUENTES [facility]O [facility] [id number] [facility] 2021-06-03 00:00:00 2021-06-03 00:00:00 Telephone VeraGalindo webster [facility] BUILDING 1..840.114 350.1.13.10 4.2.7.2.[id number] [facility] 2021-06-03 00:00:00 2021-06-03 00:00:00 Telephone Galindo Fuentes [facility] BUILDING 1..840.114 350.1.13.10 4.2.7.2.[id number] [facility] 2021-05-31 08:48:09 2021-05-31 23:59:00 Outpatient GALINDO L[facility]SON [facility] [id number] [facility] 2021-05-31 08:48:09 2021-05-31 23:59:00 Hospital Encounter Galindo Fuentes [facility] 1..840.114 350.1.13.10 4.2.7.2.[id number] [facility] 2021-05-31 00:00:00 2021-05-31 00:00:00 Orders Only Doctor Unassigned, Muldrow [facility] 1.2.840.114 350.1.13.10 4.2.7.2.[id number] [facility] 2021-05-21 10:30:00 2021-05-21 11:03:18 Office Visit Kaushik Che [address] 1.2.840.114 350.1.13.58 9.2.7.2.686 [id number] [facility] 2021-05-20 15:40:00 2021-05-20 16:20:00 Office Visit Galindo Fuentes [facility] 1..840.114 350.1.13.10 4.2.7.2.[id number] [facility] 2021-05-20 15:40:00 2021-05-20 15:40:00 Outpatient GALINDO L[facility]SON [facility] [id number] [facility] 2021-05-20 15:40:00 2021-05-20 15:40:00 Outpatient GALINDO [facility]SON [facility] [id number] [facility] 2021-05-17 00:00:00 2021-05-17 00:00:00 Patient Secure [facility] 1..840.114 350.1.13.10 4.2.7.2.[id number] [facility] 2021-05-07 08:30:00 2021-05-07 08:50:13 Outpatient NICOLE WEISS [facility] [id number] [facility] 2021-04-11 00:00:00 2021-04-11 00:00:00 Patient Secure Msg Doctor Unassigned, Muldrow [facility] 1.2.840.114 350.1.13.10 4.2.7.2.[id number] [facility] 2021-04-08 00:00:00 2021-04-08 00:00:00 Telephone Team, [facility] 1.2.840.114 350.1.13.10 4.2.7.2.[id number] [facility] 2021-04-05 00:00:00 2021-04-05 00:00:00 Orders Only Doctor Unassigned, Muldrow [facility] 1.2.840.114 350.1.13.10 4.2.7.2.[id number] [facility] 2021-03-10 00:00:00 2021-03-10 00:00:00 Nicole Sanchez [facility] OFFICE BUILDING ONE 1.2.840.114 350.1.13.10 4.2.7.2.[id number] [facility] 2021-03-08 10:00:00 2021-03-08 11:02:53 Office Visit Kaushik Che [facility] [address] 1.2.840.114 350.1.13.58 9.2.7.2.686 [id number] 3 [id number] [facility] 2021-02-18 10:00:00 2021-02-18 10:24:37 Office Visit ChineduKaushik hyde [facility] [address] 1.2.840.114 350.1.13.58 9.2.7.2.686 [id number] 3 [id number] [facility] 2021-02-05 00:00:00 2021-02-05 00:00:00 EXT H OP Kaushik Che EXT MSRDP LOCATION 1.2.840.114 350.1.13.58 9.2.7.2.686 [id number] [facility] 2021-02-05 00:00:00 2021-02-05 00:00:00 EXT MHH OP Kaushik Che EXT MSRDP LOCATION 1.114 350.1.13.58 9.2.7.2.686 [id number] [facility] 2021-01-31 00:00:00 2021-01-31 00:00:00 Sanamill Raul [facility] OFFICE BUILDING ONE 1.114 350.1.13.10 4.2.7.2.[id number] [facility] 2021-01-08 09:27:06 2021-01-08 09:57:06 [facility] 1.114 350.1.13.10 4.2.7.2.[id number] [facility] 2021-01-08 09:30:00 2021-01-08 09:30:00 Outpatient NICOLE WEISS [facility] [id number] [facility] 2020-12-13 08:42:14 2020-12-13 08:57:14 Office Visit Raul [facility] 1..114 350.1.13.10 4.2.7.2.[id number] [facility] 2020-12-13 08:30:00 2020-12-13 08:30:00 Outpatient NICOLE WEISS [facility] [id number] [facility] 2020-10-31 00:00:00 2020-10-31 00:00:00 Refrenee Carter [facility] Office Building One .114 350.1.13.10 4.2.7.2.[id number] [facility] 2020-09-18 08:41:19 2020-09-18 09:01:19 Program Counselor Visit Lab, [facility] Kiera Carter [facility] Office Building One 1.114 350.1.13.10 4.2.7.2.[id number] [facility] 2020-09-18 08:09:31 2020-09-18 08:52:40 Office Visit Nicole [facility] Office Building One 1.114 350.1.13.10 4.2.7.2.[id number] [facility] 2020-09-18 08:15:00 2020-09-18 08:15:00 Outpatient NICOLE WEISS [facility] [id number] [facility] 2020-09-12 00:00:00 2020-09-12 00:00:00 Telephone Team, [facility] 1.114 350.1.13.10 4.2.7.2.[id number] [facility] 2020-09-11 00:00:00 2020-09-11 00:00:00 Refill Nicole [facility] Office Building One .114 350.1.13.10 4.2.7.2.[id number] [facility] 2020-07-31 11:14:01 2020-07-31 11:35:55 Urgent Care Provider, [facility] Isaac Pickett [facility] Office Building One 1.114 350.1.13.10 4.2.7.2.[id number] [facility] 2020-07-31 11:20:00 2020-07-31 11:20:00 Outpatient ISAAC LABOY [facility] [id number] [facility] 2020-07-31 00:00:00 2020-07-31 00:00:00 Orders Only Doctor Unassigned, Muldrow [facility] 1.0.114 350.1.13.10 4.2.7.2.[id number] [facility] 2020-07-18 00:00:00 2020-07-18 00:00:00 Telephone Nicole Carter [facility] Office Building One 1..114 350.1.13.10 4.2.7.2.[id number] [facility] 2020-07-12 00:00:00 2020-07-12 00:00:00 Orders Only Doctor Unassigned, Muldrow [facility] 1.0.114 350.1.13.10 4.2.7.2.[id number] [facility] 2020-06-05 15:10:00 2020-06-05 15:10:00 Outpatient [facility] [id number] [facility] 2020-05-22 00:00:00 2020-05-22 00:00:00 Orders Only Doctor Unassigned, Muldrow [facility] 1.20.114 350.1.13.10 4.2.7.2.[id number] [facility] 2020-05-15 15:20:00 2020-05-15 15:20:00 Outpatient CHRISTIAN GUTIERREZ [facility] [id number] [facility] 2020-05-08 00:00:00 2020-05-08 00:00:00 Patient Outreach Christian Gutierrez [facility] 1.0.114 350.1.13.10 4.2.7.2.[id number] [facility] 2020-04-25 00:00:00 2020-04-25 00:00:00 Patient Secure Msg Raul [facility] OFFICE BUILDING ONE 1..114 350.1.13.10 4.2.7.2.[id number] [facility] 2020-04-25 00:00:00 2020-04-25 00:00:00 Telephone Raul [facility] Office Building One 1..114 350.1.13.10 4.2.7.2.[id number] [facility] 2020-04-24 10:55:25 2020-04-24 11:15:25 Program Counselor Visit Lab, [facility] Pob I Raul [facility] Office Building One 1..114 350.1.13.10 4.2.7.2.[id number] [facility] 2020-04-24 10:31:47 2020-04-24 10:46:47 Office Visit Nicole [facility] Office Building One 1..114 350.1.13.10 4.2.7.2.[id number] [facility] 2020-04-24 10:30:00 2020-04-24 10:30:00 Outpatient R RAUL [facility] [id number] [facility] 2020-03-08 14:10:28 2020-03-08 14:25:28 Program Counselor Visit 2, Adc Lab Raul [facility] Building 1..114 350.1.13.10 4.2.7.2.[id number] [facility] 2020-03-08 08:15:00 2020-03-08 08:15:00 Outpatient R NICOLE CARTER [facility] [id number] [facility] 2020-03-08 06:50:46 2020-03-08 07:05:46 Telemedici ne Visit Nicole [facility] Office Building One ..114 350.1.13.10 4.2.7.2.[id number] [facility] 2020-03-07 10:15:00 2020-03-07 10:15:00 Outpatient R RAUL NICOLE [facility] [id number] [facility] 2020-02-29 00:00:00 2020-02-29 00:00:00 Refill Raul [facility] Office Building One .84.114 350.1.13.10 4.2.7.2.[id number] [facility] 2020-01-17 09:00:37 2020-01-17 09:20:37 Program Counselor Visit Lab, [facility] Pob I Raul [facility] Office Building One ..114 350.1.13.10 4.2.7.2.[id number] [facility] 2020-01-17 09:20:00 2020-01-17 09:20:00 Outpatient NICOLE WEISS [facility] [id number] [facility] 2020-01-16 09:40:00 2020-01-16 09:40:00 Outpatient NICOLE WEISS [facility] [id number] [facility] 2020-01-13 16:05:27 2020-01-13 16:20:27 Office Visit Raul [facility] Office Building One ..114 350.1.13.10 4.2.7.2.[id number] [facility] 2020-01-13 16:00:00 2020-01-13 16:00:00 Outpatient Candace RAUL NICOLE [facility] [id number] [facility] 2019-12-13 14:22:34 2019-12-13 14:35:32 Program Counselor Visit Lab, [facility] Pob I Nicole Carter [facility] Office Building One 1.114 350.1.13.10 4.2.7.2.[id number] [facility] 2019-12-13 13:47:05 2019-12-13 14:02:05 Office Visit Mikalaraisa [facility] Office Building One 1.114 350.1.13.10 4.2.7.2.[id number] [facility] 2019-12-13 13:45:00 2019-12-13 13:45:00 Outpatient Candace RAULNICOLE [facility] [id number] [facility] 2019-12-06 09:44:22 2019-12-06 09:59:59 Program [facility] Office Building One 1.114 350.1.13.10 4.2.7.2.[id number] [facility] 2019-12-06 09:12:12 2019-12-06 09:27:12 Office Visit Nicole Carter [facility] Office Building One 1.114 350.1.13.10 4.2.7.2.[id number] [facility] 2019-12-06 09:15:00 2019-12-06 09:15:00 Outpatient Candace RAULNICOLE [facility] [id number] [facility] 2019-07-08 00:00:00 2019-07-08 00:00:00 Refill Raul [facility] Office Building One 1.2.840.114 350.1.13.10 4.2.7.2.686 [id number] 2019-07-08 00:00:00 2019-07-08 00:00:00 Refill Raul [facility] Office Building One 1.2.840.114 350.1.13.10 4.2.7.2.[id number] [facility] 2019-06-20 00:00:00 2019-06-20 00:00:00 Refrenee Carter [facility] Office Building One 1.2.840.114 350.1.13.10 4.2.7.2.686 [id number] 2019-06-20 00:00:00 2019-06-20 00:00:00 Refill Raul [facility] Office Building One 1.2.840.114 350.1.13.10 4.2.7.2.[id number] [facility] 2019-05-19 00:00:00 2019-05-19 00:00:00 Telephone Raul [facility] Office Building One 1.2.840.114 350.1.13.10 4.2.7.2.686 [id number] 2019-05-19 00:00:00 2019-05-19 00:00:00 Telephone Raul [facility] Office Building One 1.2.840.114 350.1.13.10 4.2.7.2.[id number] [facility] Results Test Description Test Time Test Comments Results Result Co mments Source [facility] [id number] 20:32:09EXAM: CT ANGIOGRAM HEAD, CT ANGIOGRAM NECK [...] isunremarkable. Superficial soft tissues and globes are otherwiseunremarkable.[facility] 2023-04-10 20:32:09EXAM: CT ANGIOGRAM HEAD, [...] Superficial soft tissues and globes are otherwiseunremarkable. [facility] Molecular [id number] 18:04:34* Test Item Value Reference Range Interpretation Comme [facility] POCT Molecular FluA (test co de = 94225-4) Negative Negative POCT Molecular FluB (test co de = 57263-9) Negative Negative Lab Interpretation (test cod e = 13753-3) Normal [facility] SARS-COV-2 ANTIGEN (BINAX NOW)2023-04-01 18:01:00* Test Item Value Reference Range Interpretation Comme [facility] POCT SARS-COV-2 ANTIGEN (test code = 94261-1) Positive Not Detected A On board controls acceptable with C Line (test code = 3574) Yes CLAUDIA (test code = CLAUDIA) accurate developme nt and interpretation of all internal controls Lab Interpretation (test code = 24536-9) [facility] Cross[facility] [id number] 00:55:00* Test Item Value Reference Range Interpretation Comme nts Product 1 Code (test code = PRODCODE1) E0336 Unit 1 ID (test code = UNITID1) [id number] Unit 1 ABO (test code = UNITABO1) O Unit 1 Rh (test code = UNITRH1) POS Unit 1 Interp (test code = UNITINTERP1) Compatible Unit 1 Status (test code = UNITSTAT1) RE Product 2 Code (test code = PRODCODE2) E4532 Unit 2 ID (test code = UNITID2) [id number] Unit 2 ABO (test code = UNITABO2) O Unit 2 Rh (test code = UNITRH2) POS Unit 2 Interp (test code = UNITINTERP2) Compatible Unit 2 Status (test code = UNITSTAT2) RE Comprehensive Metabolic [id number] 07:28:00* Test Item Value Reference Range Interpretation [...] race is not provided, and the patient isAfrican-Nauruan, multiply by 1.212. If sex is not [...] the National Kidney Foundation,http://nkdep .nih.gov CBC with [id number] 07:18:00* Test Item Value Reference Range Interpretation [...] code = ALYMPH) 2.0 K/cumm 0.5-4.6 N [place] Abs (test code = AMONO) 0.9 K/cumm 0.0-1.2 N Eos Abs (test code = AEOS) 0.09 K/cumm 0.00-0.74 N Baso Abs (test code = ABASO) 0.0 K/cumm 0.00-0.21 N Antibody Screen - [id number] 09:07:00* Test Item Value Reference Range Interpretation Comme nts Antibody Screen (test code = ABSCR) Negative Blood Type and [id number] 08:48:00* Test Item Value Reference Range Interpretation Comme nts ABO type (test code = ABO) O Rh Type (test code = RH) Positive POC Glucose, Rfruk3976-92-04 06:53:00* Test Item Value Reference Range Interpretation Comme nts POC Glucose (test code = POCGLUC) 146 mg/dL 70-115 H Notify RN or MDI f you consider your patient critically ill, the Anton Accu-Chek InformII metershould not be used for Glucose determinations.Draw a venous Glucose and send to the Main Lab for Analysis. BHCG, Urine, [id number] 06:41:00* Test Item Value Reference Range Interpretation Comme nts Preg Qual [Ur] (test code = HUHCG) Negative Negative N POC Glucose, [id number] 11:53:00* Test Item Value Reference Range Interpretation [...] disorder (ADD) in adult Chantel Mack LVN [facility] 2023-08-20 08:34:50 Contacted patient to follow up with them regarding their procedure at the [facility] pain procedure suite. The patient reported the [...] with your care and experience in the [facility] Pain Procedure Suite? yes Melissa Landaverde RN 08/20/2023 8:35 AM Melissa Landaverde RN [facility] 2023-08-18 09:52:21 Notes:Please Review Last Refilled: Disp Refills Start End MARSHALL amphetamine-dextroamphetamine (ADDERALL XR) 20 mg 24 hr capsule 30 capsule 0 07/06/2023 -- -- Sig: Take 1 capsule by mouth every morning. Sent to pharmacy as: dextroamphetamine-amphetamine ER 20 mg 24hr capsule,extend release (Adderall XR) Class: eRX Earliest Fill Date: 07/06/2023 Route: Oral Order: [id number] Date/Time Signed: 07/06/2023 15:35 E-Prescribing Status: Receipt [...] and meeting all other requirements' Melvina Guillen [facility] 2023-08-13 14:24:41 Spoke with patient who verbalizes understanding that pain procedure will be done in clinic without sedation. Instructed to follow physician's instructions regarding blood thinners and NSAIDS. Location [address] [place] [address]. Pt has clinic contact information. Appointment time verified. Arrival time 1400 given. Pina Montiel RN [facility] 2023-07-28 08:43:56 Copied from [facility] #[id number]. Topic: Clinical - Medical Advice >> Jul 28, 2023 8:42 AM Patient Cooper Apprentice wrote: JEANETH Garza/ [facility] calling to provider her info as a watch caser in case she is needed. Jeaneth LEMON#---[phone] Ruby Fernadnez [facility] 2023-07-06 13:16:35 Notes: Please Review Last Refilled: amphetamine-dextroamphetamine (ADDERALL XR) 20 mg 24 hr capsule 30 capsule 0 06/08/2023 -- -- Sig: Take 1 capsule by mouth every morning. Sent to pharmacy as: dextroamphetamine-amphetamine ER 20 mg 24hr capsule,extend release (Adderall XR) Class: eRX Earliest Fill Date: 06/08/2023 Route: Oral Order: [id number] Date/Time Signed: 06/08/2023 11:55 E-Prescribing Status: Receipt [...] and meeting all other requirements Melvina Guillen [facility] 2023-07-06 13:16:29 Images from the original note were not included. Requested Renewals amphetamine-dextroamphetamine (ADDERALL XR) 20 mg 24 hr capsule Sig: Take 1 capsule by mouth every morning. Disp: 30 capsule Refills: 0 Start: 07/06/2023 Earliest Fill Date: 07/06/2023 Class: eRX For: Attention deficit disorder (ADD) in adult Last ordered: 4 weeks ago (06/08/2023) by Nicole Carter MD Provider Review Required [place]ka[place]ak2107/06/2023 01:16 PM Protocol Details This refill cannot be delegated Valid encounter within last 12 months To be filled at: [facility]/pharmacy #[id number] - [place], [place] - [address] [place] [address] Recent Visits Date Type Provider Dept 06/18/23 [...] meeting all other requirements Rosa Goodson LVN [facility] 2023-06-23 14:58:24 Patient has viewed lab results in My Chart Seen by patient Belgica Mcnamara Angela on 06/23/2023 10:55 AM T [facility] 2023-06-18 11:00:00 Images from the original note were not included. Venipuncture collection performed by clean technique on the right anticubitus. Total of 1 attempts were made. Slight pressure and a bandage/dressing were applied to the site(s). The patient experienced no complications. The following specimens were processed according to instructions and sent to [facility] laboratories per lab order on 06/18/2023 : LT BLUE SST 1 RED LAV 1 PPT DK GREEN (LiHep) DK GREEN (SodH) NORIEGA DK BLUE (K2) DK BLUE (S) ACD Blood Culture NIPT/NTD Patient has been identified by and name and was provided with cup, antiseptic towelette, and clean catch instructions. 1 urine specimen(s) sent. Unpreserved 1 Urine Culture Aptima tube Other urine T [facility] 2023-06-11 13:57:58 [facility] Everywhere searched for patient records.Information reconciled into the patients chart. Topple Track message sent to patient with open care gaps and CRC questionnaire . [facility] 2023-06-08 09:20:12 Recent Visits Date Type Provider [...] capsule 0 04/30/2023 -- Daphnie Benito MA [facility] 2023-05-25 08:48:57 Last Refilled: hydroCHLOROthiazide 25 mg tablet 90 tablet 1 11/20/2022 -- No Sig: TAKE 1 TABLET BY MOUTH EVERY DAY IN THE MORNING Sent to pharmacy as: hydroCHLOROthiazide 25 mg tablet (ESIDRIX) Class: eRX Route: Oral Order: [id number] Date/Time Signed: 11/20/2022 10:13 E-Prescribing Status: Receipt [...] and meeting all other requirements Melvina Guillen [facility] 2023-04-08 10:30:27 Patient comment: I believe Dr. Carter was going to raise the dosage amount on my next refill. [facility] Rosa Goodson LVN [facility] 2023-02-23 11:44:47 Recent Visits Date Type Provider Dept 01/05/23 Office Visit Nicole Carter MD [facility] 12/02/22 Office Visit Nicole Carter MD [facility] 06/04/22 Office Visit Nicole Carter MD [facility] 09/26/21 Office Visit Nicole Carter MD [facility] [...] pharmacy as: lisdexamfet[facility] 2017-06-22 14:04:05 [facility] enter Operative Report/Procedure PATIENT NAME: BELGICA MILLER PHYSICIAN: Doc Angeles MD Admitted: MR NUMBER: [id number] DISCHARGED: 06/11/2017 03:40:00 DATE OF OPERATION: 06/09/2017 [...] and esophagopexy, no fundoplasty. 3. Esophagogastrojejunoscopy. 4. 19-Venezuelan Rony drain of peritoneal cavity. SURGEON: Doc Angeles MD CUSTOMER SERVICE ADVOCATE: Chris Ron. ESTIMATED BLOOD LOSS: 200 mL. [...] out posterior to the staple line and [facility] Operative Report/Procedure then repair of hiatal hernia was carried out with 2-0 silk and [id number] suture for closure of diaphragmatic hiatal hernia. [...] then the CO2 was released and a 19-Venezuelan Rony drain was placed posterior to the [...] Angeles MD On 06/22/2017 02:03 PM CDT [facility] 2017-06-11 20:55:33 [facility] enter History and Physical Pre-Op PATIENT NAME: BELGICA MILLER PHYSICIAN: Doc Angeles MD Admitted: MR NUMBER: [id number] DISCHARGED: HISTORY OF PRESENT ILLNESS: The patient [...] with multiple comorbidities of morbid obesity with [facility] History and Physical Pre-Op failure dietary for [...] the plan of treatment. Doc Angeles MD YN/RAD TD: 06/06/2017 21:08 CC:Doc Angeles MD([employer]) Edited by: Doc Angeles MD On 06/08/2017 10:00 PM CDT Electronically Authenticated and Edited by: Doc Angeles MD On 06/08/2017 10:01 PM CDT [facility] 2016-12-22 09:29:37 [facility] enter Operative Report/Procedure PATIENT NAME: BELGICA MILLER PHYSICIAN: Doc Angeles MD Admitted: MR NUMBER: [id number] DISCHARGED: 12/15/2016 05:39:00 DATE OF PROCEDURE: 12/15/2016 [...] Angeles MD On 12/22/2016 09:29 AM CDT [facility] 2016-12-17 15:37:42 [facility] enter Discharge Summary PATIENT NAME: BELGICA MILLER PHYSICIAN: Doc Angeles MD Admitted: MR NUMBER: [id number] DISCHARGED: 12/15/2016 05:39:00 HOSPITAL COURSE: This is [...] in office 1 week post discharge. MD ESTHELA Mendoza/MASON/BERNARD TD: 12/16/2016 01:58 CC:Doc Angeles MD([facility] [employer]) [facility] Discharge Summary PATIENT NAME: BELGICA MILLER PHYSICIAN: Doc Angeles MD Admitted: MR NUMBER: [id number] DISCHARGED: 12/15/2016 05:39:00 HOSPITAL COURSE: This is [...] in office 1 week post discharge. MD ESTHELA Mendoza/TREY TD: 12/16/2016 01:58 CC:Doc Angeles MD([employer]) Electronically Authenticated by: Doc Angeles MD On 12/17/2016 03:37 PM CDT [facility] 2016-12-15 10:22:31 [facility] enter History and Physical Pre-Op PATIENT NAME: BELGICA MILLER PHYSICIAN: Doc Angeles MD Admitted: MR NUMBER: [id number] DISCHARGED: The patient is going to be [...] to be evaluated with upper GI endoscopy. MD ESTHELA Mendoza/ISABEL TD: 12/14/2016 19:30 CC:Doc Angeles MD([employer]) [facility] History and Physical Pre-Op PATIENT NAME: BELGICA MILLER PHYSICIAN: Doc Angeles MD Admitted: MR NUMBER: [id number] DISCHARGED: The patient is going to be [...] Angeles MD On 12/15/2016 10:22 AM CDT [facility]
--- NOTE | 2023-10-29 12:16 | RAD REPORT ---
EXAM DESCRIPTION: CT - Head Brain Wo Cont - 10/29/2023 12:01 pm CLINICAL HISTORY: Alteration of awareness/confusion. Weakness COMPARISON: MRI October 23, 2023 TECHNIQUE: Computed axial tomography of the head was obtained. IV contrast was not requested. All CT scans are performed using dose optimization technique as appropriate and may include automated exposure control or mA/KV adjustment according to patient size. FINDINGS: An intracranial bleed is not seen The ventricles are normal in caliber No extra-axial fluid collection is noted. Low-density right basal ganglia represents an old lacunar infarction. Fluid within the sinuses/ mastoids is not seen. IMPRESSION: No acute intracranial abnormality is seen If patient's symptoms persist MRI of the brain would be recommended
[2023-10-29 12:32] LABS: Absolute Eosinophils 0.1 K/uL (0-0.5); Absolute Lymphocytes (CBC) 2.2 K/uL (0.7-4.9); Absolute Monocytes 0.8 K/uL (0.1-1.3); Absolute Neutrophil 4.2 K/uL (1.8-8.0); Basophils % 0.4 % (0-1.3); Eosinophils % 1.8 % (0-4.4); Hematocrit 36.5 % (36.0-45.0); Hemoglobin 11.7 g/dL (12.0-15.0); Lymphocytes % 29.5 % (15.3-44.8); MCHC 32.1 g/dL (32.0-36.0); MCV 93.3 fL (80-100); MPV 10.1 fL (7.6-11.3); Monocytes % 11.4 % (3.3-12.3); Neutrophils % 56.9 % (41.7-73.7); Platelets 310 thou/uL (152-406); RBC Red Blood Cell Count 3.91 M/uL (3.86-4.86); Red Cell Distribution Width 13.5 % (12.1-15.2)
[2023-10-29 12:34] LABS: PT Prothrombin Time 10.8 SECONDS (9.4-12.5); Protime INR 0.96
[2023-10-29 12:51] LABS: ALT/SGPT 27 U/L (13-56); AST/SGOT 16 U/L (15-37); Albumin 3.8 g/dL (3.4-5.0); Albumin/Globulin Ratio 0.9 (1.1-1.8); Alkaline Phosphatase 100 U/L (45-117); BUN Blood Urea Nitrogen 19 mg/dL (7-18); Bicarbonate 29 mEq/L (21-32); Bilirubin Total 0.3 mg/dL (0.2-1.0); Globulin 4.3 g/dL (2.3-3.5); Glomerular Filtration Rate 56 ml/min (=/>90); Glucose Level 94 mg/dL (74-106); Magnesium 2.3 mg/dL (1.6-2.4); NT PRO-BNP 152 pg/mL (<125); Protein, Total 8.1 g/dL (6.4-8.2); Sodium Level 139 mEq/L (136-145)
[2023-10-29 12:57] LABS: Bilirubin Direct < 0.2 mg/dL (0-0.2); Bilirubin Indirect, Calculated 0.1 mg/dL (0.2-0.8)
--- NOTE | 2023-10-29 13:18 | ER ---
Nurse's Notes [facility] Name: Belgica Crabtree Age: 53 yrs Sex: Female : 1970 Arrival Date: 10/29/2023 Time: 10:42 Bed 14 Private MD: Diagnosis: TIA, altered mental status resolved Presentation: 10/28 11:02 Chief complaint: Patient states: Pt states feeling "off" today. Spouse states they were dd2 in a meeting today and noticed she was having slowed speech, motor skills issues and balance issues. Pt was here last Thursday for stroke like symptoms. Spouse states was started on Gabapentin x3 weeks ago and has noticed symptoms since starting this medication. Coronavirus screen: At this time, the client does not indicate any symptoms associated with coronavirus-19. Ebola Screen: No symptoms or risks identified at this time. Initial Sepsis Screen: Does the patient meet any 2 criteria? No. Patient's initial sepsis screen is negative. Does the patient have a suspected source of infection? No. Patient's initial sepsis screen is negative. Risk Assessment: Do you want to hurt yourself or someone else? Patient reports no desire to harm self or others. Onset of symptoms is unknown. 11:02 Method Of Arrival: Ambulatory dd2 11:02 Acuity: MITZY 3 dd2 Triage Assessment: 11:05 General: Appears in no apparent distress. Behavior is calm, cooperative, appropriate dd2 for age. Pain: Denies pain. 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 - Infectious Disease History:: Denies. - Social history:: Smoking status: Patient denies any tobacco usage or history of. Screenin:[address] [facility] ED Fall Risk Assessment (Adult) History of falling in the last 3 months, kj2 including since admission No falls in past 3 months (0 pts) Confusion or Disorientation No (0 pts) Intoxicated or Sedated No (0 pts) Impaired Gait No (0 pts) Mobility Assist Device Used No (0 pt) Altered Elimination No (0 pt) Score/Fall Risk Level 0 - 2 = Low Risk Maintained a safe environment, Educated pt \\T\\ family on fall prevention, incl call for assistance when getting out of bed, Hourly rounding (assess needs \\T\\ fall precautionary measures) done. Abuse screen: Denies threats or abuse. Denies injuries from another. Nutritional screening: No deficits noted. Tuberculosis screening: No symptoms or risk factors identified. Assessment: 11:23 General: Appears in no apparent distress. Behavior is calm, cooperative. Pain: Denies kj2 pain. Neuro: Level of Consciousness is awake, obeys commands, appears tired and sleepy. Cardiovascular: Patient's skin is warm and dry. Respiratory: Airway is patent Respiratory effort is unlabored. GI: No deficits noted. : No deficits noted. 12:01 Reassessment: No changes from previously documented assessment. Patient and/or family kj2 updated on plan of care and expected duration. Pain level reassessed. Patient is alert, oriented x 3, equal unlabored respirations, skin warm/dry/pink. 12:26 Reassessment: Patient appears in no apparent distress at this time. Patient and/or kj2 family updated on plan of care and expected duration. Pain level reassessed. Patient is alert, oriented x 3, equal unlabored respirations, skin warm/dry/pink. Vital Signs: 11:02 BP 151 / 80; Pulse 70; Resp 15; Temp 97.2(TE); Pulse Ox 100% ; Weight 68.04 kg; Height dd2 5 ft. 3 in. ; 11:26 BP 151 / 88; Pulse 70; Resp 18; Temp 97.9; Pulse Ox 100% on R/A; kj2 12:28 BP 154 / 84; Pulse 75; Resp 18; Pulse Ox 100% on R/A; kj2 13:00 BP 160 / 85; Pulse 77; Resp 16; Pulse Ox 99% on R/A; kj2 13:15 BP 155 / 88; Pulse 71; Resp 16; Pulse Ox 100% on R/A; kj2 13:41 BP 110 / 86; Pulse 68; Resp 18; Temp 98; Pulse Ox 100% on R/A; kj2 11:02 Body Mass Index 26.57 (68.04 kg, 160.02 cm) dd2 ED Course: 10:45 Patient arrived in ED. im 10:52 Parish Richardson MD is Attending Physician. sp3 11:05 Triage completed. dd2 11:05 Arm band placed on right wrist. Patient placed in an exam room, on a stretcher, on dd2 pulse oximetry, Patient notified of wait time. 11:23 Stephenie Diaz, RN is Primary Nurse. kj2 11:26 Patient has correct armband on for positive identification. Bed in low position. Call kj2 light in reach. Adult w/ patient. Provided Education on: call light, fall precautions. 11:26 No provider procedures requiring assistance completed. kj2 12:01 EKG done, by ED staff. kj2 12:03 CT Head Brain wo Cont In Process Unspecified. EDMS 12:25 Inserted saline lock: 20 gauge in left antecubital area, using aseptic technique. Blood kj2 collected. Flushed with 10 mL NS. 12:25 Missed attempt(s): 20 gauge in right antecubital area. kj2 13:06 XRAY Chest (1 view) In Process Unspecified. EDMS 13:44 IV discontinued, intact, bleeding controlled, No redness/swelling at site. Pressure kj2 dressing applied. Administered Medications: No medications were administered Medication: 11:26 VIS not applicable for this client. kj2 Outcome: 13:17 Discharge ordered by . sp3 13:43 Discharged to home kj2 13:43 Condition: stable 13:43 Instructed on discharge instructions, follow up and referral plans. 13:44 Patient left the ED. kj2 Signatures: Dispatcher [employer] EDMS Parish Richardson MD MD sp3 Grace Lieberman Krystal, RN RN kj2 JOSEFINA ROMAN RN RN dd2
--- NOTE | 2023-10-29 13:18 | EDPHYS ---
Physician Documentation [facility] Name: Belgica Crabtree Age: 53 yrs Sex: Female : 1970 Arrival Date: 10/29/2023 Time: 10:42 Bed 14 Private MD: ED Physician Parish Richardson HPI: 10/28 11:47 This 53 yrs old Unknown Female presents to ER via Ambulatory with complaints of altered sp3 mental status . 11:47 53-year-old female with history of occipital neuralgia who was recently admitted here sp3 for TIA and discharged after negative MRI presents again for a single episode of altered mental status, confusion and slurred speech which spontaneously resolved. Patient now currently with no deficits or complaints. Patient saw a physician assistant sales center manager from Dr. Kennedy's office while admitted. She does have her own private neurologist which she sees for her neuralgia and has a follow-up appointment set for next week. She denies any other symptoms including headache, fever, neck pain, chest pain, shortness of breath, abdominal pain, syncope, fever, or any other signs or symptoms on ROS at this time. Reviewed old records including MRI from October 23, 2023 which is an MRI of the brain without contrast for which impression is negative for acute CVA or other intracranial process.. 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 - Infectious Disease History:: Denies. - Social history:: Smoking status: Patient denies any tobacco usage or history of. ROS: 11:49 Constitutional: Negative for fever, chills, and weight loss, Eyes: Negative for injury, sp3 pain, redness, and discharge, ENT: Negative for injury, pain, and discharge, Neck: Negative for injury, pain, and swelling, Cardiovascular: Negative for chest pain, palpitations, and edema, Respiratory: Negative for shortness of breath, cough, wheezing, and pleuritic chest pain, Abdomen/GI: Negative for abdominal pain, nausea, vomiting, diarrhea, and constipation, Back: Negative for injury and pain, MS/Extremity: Negative for injury and deformity, Skin: Negative for injury, rash, and discoloration, Psych: Negative for depression, anxiety, suicide ideation, homicidal ideation, and hallucinations, Allergy/Immunology: Negative for hives, rash, and allergies, Endocrine: Negative for neck swelling, polydipsia, polyuria, polyphagia, and marked weight changes, Hematologic/Lymphatic: Negative for swollen nodes, abnormal bleeding, and unusual bruising, 11:49 All other systems are negative, Exam: 11:49 Constitutional: This is a well developed, well nourished patient who is awake, alert, sp3 and in no acute distress. Head/Face: Normocephalic, atraumatic. Eyes: Pupils equal round and reactive to light, extra-ocular motions intact. Lids and lashes normal. Conjunctiva and sclera are non-icteric and not injected. Cornea within normal limits. Periorbital areas with no swelling, redness, or edema. ENT: Nares patent. No nasal discharge, no septal abnormalities noted. External auditory canals are clear. Oropharynx with no redness, swelling, or masses, exudates, or evidence of obstruction, uvula midline. Mucous membranes moist. Neck: Trachea midline, no thyromegaly or masses palpated, and no cervical lymphadenopathy. Supple, full range of motion without nuchal rigidity, or vertebral point tenderness. No Meningismus. Chest/axilla: Normal chest wall appearance and motion. Nontender with no deformity. No lesions are appreciated. Cardiovascular: Regular rate and rhythm with a normal S1 and S2. No gallops, murmurs, or rubs. Normal PMI, no JVD. No pulse deficits. Respiratory: Lungs have equal breath sounds bilaterally, clear to auscultation and percussion. No rales, rhonchi or wheezes noted. No increased work of breathing, no retractions or nasal flaring. Abdomen/GI: Soft, non-tender, with normal bowel sounds. No distension or tympany. No guarding or rebound. No evidence of tenderness throughout. Back: No spinal tenderness. No costovertebral tenderness. Full range of motion. Skin: Warm, dry with normal turgor. Normal color with no rashes, no lesions, and no evidence of cellulitis. MS/ Extremity: Pulses equal, no cyanosis. Neurovascular intact. Full, normal range of motion. Neuro: Awake and alert, GCS 15, oriented to person, place, time, and situation. Cranial nerves II-XII grossly intact. Motor strength 5/5 in all extremities. Sensory grossly intact. Cerebellar exam normal. Normal gait. Psych: Awake, alert, with orientation to person, place and time. Behavior, mood, and affect are within normal limits. 12:13 ECG was reviewed by the Attending Physician. EKG demonstrates normal sinus rhythm at 64 sp3 bpm with normal intervals, normal QRS, normal axis, normal ST/T-segment's without evidence of acute ischemia. Vital Signs: 11:02 BP 151 / 80; Pulse 70; Resp 15; Temp 97.2(TE); Pulse Ox 100% ; Weight 68.04 kg; Height dd2 5 ft. 3 in. ; 11:26 BP 151 / 88; Pulse 70; Resp 18; Temp 97.9; Pulse Ox 100% on R/A; kj2 12:28 BP 154 / 84; Pulse 75; Resp 18; Pulse Ox 100% on R/A; kj2 13:00 BP 160 / 85; Pulse 77; Resp 16; Pulse Ox 99% on R/A; kj2 13:15 BP 155 / 88; Pulse 71; Resp 16; Pulse Ox 100% on R/A; kj2 13:41 BP 110 / 86; Pulse 68; Resp 18; Temp 98; Pulse Ox 100% on R/A; kj2 11:02 Body Mass Index 26.57 (68.04 kg, 160.02 cm) dd2 MDM: 10:54 Patient medically screened. sp3 11:50 Data reviewed: vital signs, nurses notes, old medical records, lab test result(s), EKG, sp3 radiologic studies. ED course: 53-year-old female with recent TIA and history of occipital neuralgia now presents with recurrent confusion, brief slurred speech and near syncope now all completely resolved. Recent MRI of the brain and stroke workup negative. Patient has an appointment with her neurologist for next week. Currently all symptoms are back to normal. Differential diagnosis includes recurrent TIA versus orthostatic hypotension versus electrolyte abnormality versus some other event. Will obtain new workup including EKG, laboratory values, chest x-ray and CT scan of the head. If workup negative we will safely discharge patient home to her continued outpatient appointment.. 13:16 ED course: CT scan negative and labs are within normal limits. NIH stroke scale was 0 sp3 and patient has normal neurological exam. We will safely discharge home with follow-up to her personal neurologist at this time.. 10/28 11:37 Order name: Basic Metabolic Panel; Complete Time: 13:09 sp3 10/28 11:37 Order name: CBC with Diff; Complete Time: 13:09 sp3 10/28 11:37 Order name: LFT's; Complete Time: 13: sp3 10/28 11:37 Order name: Magnesium; Complete Time: 13: sp3 10/28 11:37 Order name: NT PRO-BNP; Complete Time: 13: sp3 10/28 11:37 Order name: PT-INR; Complete Time: 13: sp3 10/28 11:37 Order name: Troponin HS; Complete Time: 13: sp3 10/28 11:37 Order name: XRAY Chest (1 view) sp3 10/28 11:37 Order name: CT Head Brain wo Cont; Complete Time: 13: sp3 10/28 11:37 Order name: EKG; Complete Time: 11:37 sp3 10/28 11:37 Order name: Cardiac monitoring; Complete Time: 12:00 sp3 10/28 11:37 Order name: EKG - Nurse/Tech; Complete Time: 12:00 sp3 10/28 11:37 Order name: IV Saline Lock; Complete Time: 12:43 sp3 10/28 11:37 Order name: Labs collected and sent; Complete Time: 12:43 sp3 10/28 11:37 Order name: O2 Per Protocol; Complete Time: 12:00 sp3 10/28 11:37 Order name: O2 Sat Monitoring; Complete Time: 12:00 sp3 Administered Medications: No medications were administered Disposition Summary: 10/29/23 13:17 Discharge Ordered Notes: Location: Home sp3 Condition: Stable sp3 Diagnosis - TIA, altered mental status resolved sp3 Followup: sp3 - With: Private Physician - When: Upon discharge from the Emergency Department - Reason: Continuance of care Discharge Instructions: - Discharge Summary Sheet sp3 - Transient Ischemic Attack sp3 Forms: - Medication Reconciliation Form sp3 - Antibiotic Education sp3 - Prescription Opioid Use sp3 - Patient Portal Instructions sp3 - Leadership Thank You Letter sp3 Signatures: Dispatcher [employer] EDParish Navarro MD MD sp3 JOSEFINA ROMAN, RN RN dd2
--- NOTE | 2023-10-29 13:39 | RAD REPORT ---
EXAM DESCRIPTION: RADChest Single View10/29/2023 1:04 pm CLINICAL HISTORY: general weakness COMPARISON: Chest Single View dated 10/23/2023; CHEST SINGLE VIEW dated 03/07/2012; CHEST SINGLE VIEW dated 03/31/2010; CHEST PA AND LAT 2 VIEW dated 08/04/2008 TECHNIQUE: Portable AP view of the chest. FINDINGS: The lungs are clear. No pneumothorax or effusion. The cardiomediastinal contours are unre markable. IMPRESSION: No acute cardiopulmonary process.
[2023-10-29 14:11] VITALS: O2SAT 100
[2023-10-29 14:12] VITALS: BP 110/86; TEMP 98
--- NOTE | 2023-10-30 14:07 | EKG ---
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
== END 2023-10-29 13:44 | disposition home or self-care (01) ==
LOC: ER 10:42
DX: G45.9 Transient cerebral ischemic attack, unspecified (principal)
CPT/HCPCS: 36415; 70450; 71045; 80048; 80076; 83735; 83880; 84484; 85025; 85610; 93005; 99284